=== PATIENT | male | born 1965 | race Caucasian/White ===

== ENCOUNTER → 2018-02-09 07:53 | Outpatient (CLI) | payer OTHER, SELFPAY ==
[2018-02-09 09:47] LABS: Alanine Aminotransferase 45 U/L (12-78); Albumin Level 3.8 gm/dL (3.4-5.0); Albumin/Globulin Ratio 1.1 (1.1-1.8); Alkaline Phosphatase 74 U/L (46-116); Anion Gap 14.7 mEq/L (5-15); Aspartate Amino Transferase 23 U/L (15-37); Bilirubin,Total 0.6 mg/dL (0.2-1.0); Blood Urea Nitrogen 11 mg/dL (7-18); Carbon Dioxide 26 mmol/L (21.0-32.0); Chloride 103 mmol/L (98-107); Creatinine,Serum 0.99 mg/dL (0.70-1.30); Estimated Glomerular Filt Rate 79 ml/min (>60); GFR (African American) 96 ML/MIN (>60); Globulin 3.5 gm/dl (1.3-3.2); Glucose 136 mg/dL (74-106); Potassium 4.7 mmoL/L (3.5-5.1); Sodium 139 mmol/L (136-145); Thyroid Stimulating Hormone 1.55 uIU/ml (0.358-3.740); Total Protein,Serum 7.3 gm/dL (6.4-8.2)
[2018-02-10 09:41] LABS: Chol/HDL Ratio 2.9 (1-3.5); Cholesterol 130 mg/dL (140-200); HDL Cholesterol 45 mg/dL (27-67); LDL Cholesterol 49 mg/dL (0-130); Triglycerides 182 mg/dL (30-200); VLDL Cholesterol 36 mg/dL (0-40)
== END ==
PROVIDERS: PCP Family Medicine; Visit Provider Physician Assistant
DX: I25.10 Atherosclerotic heart disease of native coronary artery without angina pectoris (principal); E78.5 Hyperlipidemia, unspecified
CPT/HCPCS: 36415; 80053; 80061; 80076; 84443

== ENCOUNTER → 2018-04-02 07:42 | Outpatient (CLI) | payer OTHER, SELFPAY ==
[2018-04-02 08:18] LABS: Basophils % 0.5 % (0.1-2.0); Eosinophils # 0.3 K/mm3 (0.0-0.4); Eosinophils % 3.7 % (0.1-12.0); Hemoglobin 16.3 g/dL (14.1-18.0); Lymphocytes # 2.3 K/mm3 (0.7-4.5); Lymphocytes % 28.5 % (10-50); Mean Corpuscular HGB Conc 33.3 g/dL (31.8-35.4); Mean Corpuscular Hemoglobin 32.9 pg (27.0-31.2); Mean Corpuscular Volume 98.8 fl (80-94); Mean Platelet Volume 8.4 fl (7.4-10.4); Monocytes # 0.4 K/mm3 (0.1-1.0); Monocytes % 4.5 % (1.7-9.3); Neutrophils % 62.8 % (37.0-80.0); Platelet Count 186 K/mm3 (142-424); Red Blood Count 4.96 M/mm3 (4.60-6.20); Red Cell Distribution Width 12.9 % (11.5-17.5)
--- NOTE | 2018-04-02 08:24 | XR_ITS ---
XR knee RT 4V, XR knee LT 4V Ordering Physician: Susan Crum Patient Age: 53 years: Male HISTORY: ITS.REASON: pain Bilateral knee pain. Left knee has been fractured previously. TECHNIQUE: . PA, standing AP, lateral and sunrise patella view. COMPARISON : No studies prior to today ------ RIGHT KNEE There is a joint effusion suprapatella bursa evident on the lateral view. Patellofemoral joint. Some mild subchondral cystic changes and sclerosis subtle but suggested beneath medial facet of patella, likely reflecting some degenerative changes developing here No acute or recent fracture evident. Bones well mineralized. Joint spaces fairly well maintained with only borderline narrowing at the medial compartment on the standing standing AP view. IMPRESSION-right knee. ] 1. Joint effusion evident at suprapatella bursa. 2. Suggestion early arthritic changes medial facet of patella Subtle sclerosis & mild subchondral cystic changes, medial facet of patella. ------ LEFT KNEE Technique: Weightbearing AP, lateral and Proctor views were performed as well as oblique. There is subtle narrowing of the lateral compartment on this date views of the left knee. Subtle marginal sharp screening and very early tricompartmental marginal osteophytes seen about the lateral joint space. No joint effusion. I do not see deformity from from old fracture. Suggestion of very subtle oblique line of sclerosis inferior to the the lateral tibial plateau which could reflect old residual. Equivocal.. Requires correlation. No joint effusion evident IMPRESSION. Suggestion early degenerative changes at the lateral compartment. Left knee Minimal joint space narrowing with trace marginal osteophyte formation laterally on left
[2018-04-02 09:13] LABS: Alanine Aminotransferase 50 U/L (12-78); Albumin Level 3.8 gm/dL (3.4-5.0); Albumin/Globulin Ratio 1.1 (1.1-1.8); Alkaline Phosphatase 74 U/L (46-116); Anion Gap 14.5 mEq/L (5-15); Aspartate Amino Transferase 26 U/L (15-37); Bilirubin,Total 0.4 mg/dL (0.2-1.0); Blood Urea Nitrogen 10 mg/dL (7-18); Calcium 8.9 mg/dL (8.5-10.1); Carbon Dioxide 27 mmol/L (21.0-32.0); Chloride 103 mmol/L (98-107); Cholesterol 138 mg/dL (140-200); Creatinine,Serum 1.08 mg/dL (0.70-1.30); Estimated Glomerular Filt Rate 72 ml/min (>60); GFR (African American) 87 ML/MIN (>60); Globulin 3.4 gm/dl (1.3-3.2); Glucose 131 mg/dL (74-106); HDL Cholesterol 46 mg/dL (27-67); LDL Cholesterol 61 mg/dL (0-130); Potassium 4.5 mmoL/L (3.5-5.1); Sodium 140 mmol/L (136-145); T4 (Thyroxine) 8.6 ug/dl (4.7-13.3); Thyroid Stimulating Hormone 2.39 uIU/ml (0.358-3.740); Total Protein,Serum 7.2 gm/dL (6.4-8.2); Triglycerides 156 mg/dL (30-200); VLDL Cholesterol 31 mg/dL (0-40)
[2018-04-02 09:19] LABS: C-Reactive Protein < 0.2 mg/L (0.0-0.9)
[2018-04-02 09:44] LABS: Erythrocyte Sedimentation Rate 5 mm/hr (0-20)
[2018-04-02 10:56] LABS: Hemoglobin A1C 5.9 % (0.0-7.0)
[2018-04-03 07:17] LABS: Hep A Ab, IgM Negative (Negative); Hepatitis B Core Antibody IgM Negative (Negative); Hepatitis B Surface Antigen Negative (Negative)
[2018-04-03 14:04] LABS: Hepatitis C Antibody 0.2 s/co ratio (0.0-0.9); PSA, Free 0.17 ng/mL; Prostate Specific Ag 0.4 ng/mL (0.0-4.0); RA Latex Turbid. <10.0 IU/mL (0.0-13.9)
[2018-04-03 14:17] LABS: Anti-Centromere B Antibodies <0.2 AI (0.0-0.9); Anti-Jo-1 <0.2 AI (0.0-0.9); Anti-Smith Antibody <0.2 AI (0.0-0.9); Antichromatin Antibodies <0.2 AI (0.0-0.9); Antiscleroderma-70 Antibodies <0.2 AI (0.0-0.9); RNP Antibodies <0.2 AI (0.0-0.9); Sjogren's Anti-SS-A <0.2 AI (0.0-0.9); Sjogren's Anti-SS-B <0.2 AI (0.0-0.9)
[2018-04-03 16:44] LABS: Anti-DNA (DS) Ab Qn 10 IU/mL (0-9)
[2018-04-04 00:07] LABS: PTT-LA 34.3 sec (0.0-51.9); dRVVT 39.8 sec (0.0-47.0)
[2018-04-04 09:31] LABS: Anti-Cyclic Citrullinated Pept 8 units (0-19); Lupus Reflex Interpretation Comment: (.)
== END ==
PROVIDERS: Visit Provider Nurse Practitioner Family
DX: M25.561 Pain in right knee (principal); M25.562 Pain in left knee; R53.83 Other fatigue; E78.2 Mixed hyperlipidemia; G89.29 Other chronic pain; Z12.5 Encounter for screening for malignant neoplasm of prostate
CPT/HCPCS: 36415; 73564; 80053; 80061; 80074; 83036; 84153; 84154; 84436; 84443; 85025; 85613; 85651; 86140; 86200; 86225; 86235; 86431

== ENCOUNTER → 2018-10-11 15:55 | Outpatient (CLI) | payer OTHER, SELFPAY ==
--- NOTE | 2018-10-11 16:03 | XR_ITS ---
EXAM: XR thoracic spine 3V HISTORY: Upper extremity numbness ITS.REASON: numbness in arms Comparison: None FINDINGS: Normal alignment. No fracture or dislocation. There is mild multilevel degenerative disc disease in the midthoracic spine. Minimal wedging noted involving T7 which appears old. Degenerative disc disease is present at T6-T7 and T7-T8 and T8-T9. There is mild upper thoracic curvature convex left. No lytic or blastic change. IMPRESSION: Thoracic spondylosis with degenerative disc disease and minimal loss of height of T7 which may be chronic and mild upper thoracic curvature convex left
--- NOTE | 2018-10-11 16:03 | XR_ITS ---
EXAM: XR cervical spine 3V HISTORY: ITS.REASON: numbness in rt/lt arm ORDERING PHYSICIAN: Susan Crum APRN PATIENT AGE: 53 years COMPARISON: None FINDINGS: There is minimal anterolisthesis of C4 on C5 of 1.5 mm. Mild degenerative disc disease C4-C5 C5-C6 and C6-. Mild facet arthritic changes with hypertrophy noted at C4-C5 and C6 on the left. Carotid artery calcifications are also present. No fracture or dislocation. No lytic or blastic change. There is upper thoracic curvature convex left. IMPRESSION: Cervical spondylosis with degenerative disc disease and facet arthritic change with upper thoracic scoliosis convex left. Carotid artery disease
== END ==
PROVIDERS: PCP Nurse Practitioner Family; Visit Provider Nurse Practitioner Family
DX: M79.602 Pain in left arm (principal)
CPT/HCPCS: 72040; 72072

== ENCOUNTER 2018-10-25 08:55 | Outpatient (RCR) | payer OTHER, SELFPAY ==
--- NOTE | 2018-10-25 10:12 | HMH.PTOPEV ---
PT Outpatient Evaluation Rehab PT Outpatient Evaluation Start: 10/25/18 09:05 Freq: Status: Active Protocol: Document 10/25/18 09:41 JAMES (Rec: 10/25/18 10:12 [email or web address] [id number]) Electronically Signed By Jonh Grant, PT 10/25/18 09:41 Outpatient Therapy Subjective History Subjective History Patient is a 53 year old male presenting to outpatient PT with reports of L sided cervical spine/shoulder pain with C6/7 dermatomal radicular symptoms. Pt reports symptoms started approximately 1 month ago of insidious onset. Most recent diagnostics include L sided cervical spine spondylosis/DDD . Comorbidities include CV stent x 2, HTN and carotid stenosis. Chief Complaint Pain,Paresthesia Symptom Type Ache,Sharp,Numbness,Tingling Symptoms Relieved By Nothing Symptoms Aggravated By Physical Activity Prior Functional Limitations None Current Functional Limitations Reaching,Lifting,Housework, Driving,Sleeping,Recreation Activity Symptom Description Constant but Variable Level of pain today (0-10) 6 Pain scale - at its best (0-10) 5 Pain scale - at its worst (0-10) 9 Cervical Eval Palpation Cervical Muscles L Cervical Paraspinal,L CT Junction,L Upper Trapezius,L Thoracic Paraspinals Posture Head/C-Spine Posture Sitting Position C-Spine Flattened Head/C-Spine Posture Standing Position C-Spine Flattened Flexibility Deficits Upper Trapezius Muscle Length (R) Moderate Tightness,(L) Moderate Tightness Levaetor Scapulae Muscle Length (R) Moderate Tightness,(L) Moderate Tightness Scalene Group Muscle Length (R) Moderate Tightness,(L) Moderate Tightness Sternocleidomastoid Muscle Length (R) Moderate Tightness,(L) Moderate Tightness Pectoralis Major Muscle Length (R) Moderate Tightness,(L) Moderate Tightness Pectoralis Minor Muscle Length (R) Moderate Tightness,(L) Moderate Tightness Passive Joint Mobility Cervical PIVM Dec: R OA L OA R AA L AA R C2/3
== END 2018-10-25 08:59 | disposition home or self-care (01) ==
LOC: PT 08:55
PROVIDERS: Visit Provider Emergency Medicine
DX: M43.02 Spondylolysis, cervical region (principal); M51.34 Other intervertebral disc degeneration, thoracic region; M50.30 Other cervical disc degeneration, unspecified cervical region; M48.50XA Collapsed vertebra, not elsewhere classified, site unspecified, initial encounter for fracture
CPT/HCPCS: 97163

== ENCOUNTER → 2018-11-06 06:06 | Outpatient (CLI) | payer OTHER, SELFPAY ==
--- NOTE | 2018-11-06 | CA_ITS ---
APPROVED REPORT Exam: Pharmacologic Technologist: Jennifer Green, Ht: 5 ft 9 in Wt: 198 lbs BSA: 2.06 m2 HR: 54 bpm BP: 150/66 mmHg Indications: Shortness of Breath Medical History Medications: Lisinopril,,,,, Omeprazole,,,,, Aspirin,,,,, Atorvastatin,,,,, Carvedilol,,,,, Stress Test Details Test: LEXISCAN HR Resting HR: 57 bpm Max Heart Rate (APMHR): 168 bpm Max HR Achieved: 85 bpm Target HR (85% APMHR): 142 bpm % of APMHR: 50 Recovery HR: 71 bpm BP Resting BP: 150/66 mmHg Max BP: 153/72 mmHg Recovery BP: 153.0/71.0 mmHg ECG Clinical Exercise duration: 04:00 min Highest Stage Achieved: Exercise capacity: 1.0 METs Stress ECG Conclusion Resting ECG: Sinus Bradycardia, ST-T abnormalities inferiorly and laterally consistent with strain pattern. Symptoms: Shortness of air, mild nausea, malaise. No Chest Pain Arrhythmia/Ectopy: None St-T Changes: No significant changes. Conclusion: Unremarkable Lexiscan Stress. Myoview images reported separately. Electronically signed by : Fazal Augustine, 11/07/2018 11:39:04
--- NOTE | 2018-11-06 06:10 | CA_ITS ---
APPROVED REPORT Sound Engineering Technician: CT Laterality: Bilateral Study Quality: Good Indications: carotid calcification Risk Factors Hypertension: Hyperlipidemia Smoking Doppler Spectral Velocity Analysis ECA (R) 143.00/ cm/s ECA (L) 115.00/ cm/s dICA (R) 110.00/34.90 cm/s dICA (L) 102.00/27.90 cm/s Ravi (R) 104.00/34.20 cm/s Ravi (L) 117.00/39.10 cm/s pICA (R) 107.00/36.30 cm/s pICA (L) 90.40/22.60 cm/s dCCA (R) 82.50/22.00 cm/s dCCA (L) 69.20/18.20 cm/s pCCA (R) 105.00/17.30 cm/s pCCA (L) 140.00/21.00 cm/s Vert (R) 47.40/ cm/s Vert (L) 41.30/ cm/s ICA/CCA 1.33 ICA/CCA 1.69 Findings Duplex evaluation demonstrates stenosis of the right proximal internal carotid artery <20%. Duplex evaluation demonstrates stenosis of the left proximal internal carotid artery <20%. Antegrade normal bilateral vertebral arteries. Conclusion Duplex evaluation demonstrates stenosis of the right proximal internal carotid artery <20%. Duplex evaluation demonstrates stenosis of the left proximal internal carotid artery <20%. Antegrade normal bilateral vertebral arteries. Electronically signed by : Ede Herrera MD 11/06/2018 19:18:04
--- NOTE | 2018-11-06 06:12 | NM_ITS ---
APPROVED REPORT Exam: Nuclear Stress Test Indication: SOB, Fatigue, Lt arm numbness, HTN, CAD, Hx of PR, High Cholesterol, Tobacco use, Family hx Patient Location: Outpatient Stress Tech: Jennifer Green MI Tech:Mehnaz Carr, ARRT, RT (R)(N) Ht: 5 ft 9 in Wt: 198 lbs BSA: 2.06 m2 HR: 54 bpm BP: 150/66 mmHg BMI: 29.2 History: SOB, Fatigue, Lt arm numbness, HTN, CAD, Hx of PR, High Cholesterol, Tobacco use, Family hx Procedure: Patient received a 0.4 mg of intravenous Lexiscan, resting heart rate 54 bpm, resting blood pressure 150/66 mmHg, with Lexiscan maximum heart rate achived was 82 bpm which is Less than 85 % of the maximum predicted heart rate and blood pressure was 144/76 mmHg. With Lexiscan, patient denied any complaint of chest pain. Electrocardiogram Sinus rhythm, with Lexiscan there is less than 1.[address] segment depression noted from the baseline EKG. The EKG portion of the Lexiscan Myoview is nondiagnostic. Cardiac Stress and Resting SPECT Images: Cardiac Stress and Resting SPECT images were obtained using technetium 99m Myoview 32 mCi stress and 10 mCi at rest. Gated SPECT with analysis of segmental wall motion and calculation of the ejection fraction also done. Cardiac stress and resting SPECT images show moderate sized area of fixed defect involving the inferior wall consistent with area of myocardial scarring, there is no reversible ischemia seen. Computer derived ejection fraction is 62% with moderate inferior wall hypokinesis. Right ventricle is mildly enlarged with normal contractility. Conclusion: 1. The EKG portion of the Lexiscan Myoview is nondiagnostic. 2. Scintigraphic evidence of myocardial scarring involving the inferior wall without significant kiara-infarct ischemia. Computer derived ejection fraction is 62% with segmental wall motion abnormality described above, right ventricle is mildly enlarged with normal contractility. 3. Abnormal Lexiscan Myoview study. Electronically signed by : Abraham Dobson, 11/16/2018 11:32:50
--- NOTE | 2018-11-06 07:05 | HMH.ITSHM ---
Current Home Medications as stated by this patient Tyler Sandra or service center representative. []LISINORPIL OMEPRAZOLE ATROVASTATIN CARVEDILOL ASA
== END ==
PROVIDERS: PCP Emergency Medicine; Visit Provider Internal Medicine
DX: R06.02 Shortness of breath (principal); I11.9 Hypertensive heart disease without heart failure; I25.10 Atherosclerotic heart disease of native coronary artery without angina pectoris; I77.9 Disorder of arteries and arterioles, unspecified; I65.29 Occlusion and stenosis of unspecified carotid artery; E78.5 Hyperlipidemia, unspecified
CPT/HCPCS: 78452; 93017; 93306; 93880; A9502; J2785

== ENCOUNTER → 2018-12-17 13:51 | Outpatient (CLI) | payer OTHER, SELFPAY ==
[2018-12-17 15:34] LABS: Anion Gap 16.1 mEq/L (5-15); Blood Urea Nitrogen 8 mg/dL (7-18); Calcium 8.6 mg/dL (8.5-10.1); Carbon Dioxide 24 mmol/L (21.0-32.0); Chloride 102 mmol/L (98-107); Creatinine,Serum 0.92 mg/dL (0.70-1.30); Estimated Glomerular Filt Rate 86 ml/min (>60); GFR (African American) 105 ML/MIN (>60); Glucose 123 mg/dL (74-106); Potassium 4.1 mmoL/L (3.5-5.1); Sodium 138 mmol/L (136-145)
== END ==
PROVIDERS: Urology; PCP Nurse Practitioner Family; Visit Provider Nurse Practitioner Family
DX: E78.2 Mixed hyperlipidemia (principal); I11.9 Hypertensive heart disease without heart failure; I25.10 Atherosclerotic heart disease of native coronary artery without angina pectoris; I65.29 Occlusion and stenosis of unspecified carotid artery; R06.02 Shortness of breath; F17.200 Nicotine dependence, unspecified, uncomplicated
CPT/HCPCS: 36415; 80048

== ENCOUNTER → 2018-12-24 08:29 | Outpatient (CLI) | payer OTHER, SELFPAY ==
--- NOTE | 2018-12-24 08:30 | MR_ITS ---
PROCEDURE: MR CERVICAL SPINE WO CON CLINICAL INDICATION: abn xray Left arm pain and numbness with stiff neck COMPARISON: from 10/11/2018 from 10/11/2018 TECHNIQUE: Standard multiplanar multiecho sequences are performed without contrast. 3-D MIP and myelographic images are also rendered and reviewed FINDINGS: There is generalized motion artifact especially on the axial images which decreases fine detail. Cranial cervical junction has an unremarkable appearance. C2-C3 and C3-C4 have an unremarkable appearance on the sagittal images. The axial images suggest minimal bulging disc however, this may be accentuated from the patient motion artifact. There is mild foraminal narrowing on the left at C2-C3 from some mild uncovertebral hypertrophy. C4-C5: There are facet arthritic changes on the left with mild left-sided foraminal narrowing. C5-C6: Mild left-sided facet hypertrophy with mild foraminal narrowing. Minimal bulging disc at C5-C6 C6-C7: Degenerate disc disease with minimal bulging disc. The bulging disc does abut the anterior aspect of the cord with minimal contour deformity. IMPRESSION: 1. Motion artifact does obscure fine detail and is present at multiple levels worse on the axial images compared to the sagittal images. 2. There is mild multilevel degenerative changes. Please see above for detailed description at each level. Dictated by: Ede Herrera MD 12/25/2018 05:40 Electronically signed by Ede Herrera MD in [place] 12/25/2018 05:40
== END ==
PROVIDERS: PCP Nurse Practitioner Family; Visit Provider Nurse Practitioner Family
DX: M54.2 Cervicalgia (principal)
CPT/HCPCS: 72141; 76376

== ENCOUNTER → 2019-07-26 07:48 | Outpatient (CLI) | payer OTHER, SELFPAY ==
--- NOTE | 2019-07-26 | XR_ITS ---
PROCEDURE: XR HIP RT 2-3V W/PELVIS CLINICAL INDICATION: PAIN Pain, abnormal MRI COMPARISON: MR HIP RT WO CON from 07/26/2019 FINDINGS: No definite fracture or dislocation. MRI shows extensive edema of the right femoral neck and intertrochanteric region with question of a fracture in the intertrochanteric region. This is not confirmed with plain film. Consider CT for further evaluation. There is avascular necrosis of the femoral heads on both sides on the MRI which is below limits of resolution on the plain film. IMPRESSION: Plain film does not demonstrate any acute fracture. Please see above for detail. Dictated by: Ede Herrera MD 07/26/2019 09:10 Electronically signed by Ede Herrera MD in [facility] 07/26/2019 09:10
--- NOTE | 2019-07-26 07:48 | MR_ITS ---
PROCEDURE: MR HIP RT WO CON CLINICAL INDICATION: hip pain Right hip pain COMPARISON: No exams were available for comparison TECHNIQUE: Routine multiplanar multi echo sequences are performed without gadolinium enhancement. FINDINGS: There is heterogeneous geographic serpiginous decreased T1 signal in the subcortical region of the femoral heads on both sides consistent with avascular necrosis of both femoral heads. On the right there is I so intense signal of the subchondral region of the femoral head which is hypointense on T2. On the left there is isointensity of the subchondral region which is hyperintense on T2 with a central area of decreased T2 signal. In addition, there is diffuse abnormal signal intensity of the right femoral neck extending from the subcapital region to the inter trochanteric area with heterogeneous decreased T1 and increased T2 signal. There is also decreased T1 and increased T2 signal of the acetabular region at the acetabular roof and there is a small right-sided hip effusion. In addition, there is some increased T2 signal involving the adjacent soft tissues. Along the anterior aspect of the intertrochanteric region there is some linear areas of decreased T1 and increased T2 signal raising the suspicion of a nondisplaced fracture.. IMPRESSION: 1. Bilateral avascular necrosis of the hips 2. Bone marrow edema of the right femoral neck extending to the inter trochanteric region and also of the right acetabulum with small right hip joint effusion. Septic arthritis could cause this finding. Transient osteoporosis of the hip is also consideration. 3. Questionable fracture of the intertrochanteric region. Suggest CT for further evaluation. Dictated by: Ede Herrera MD 07/26/2019 09:23 Electronically signed by Ede Herrera MD in [place] 07/26/2019 09:23
--- NOTE | 2019-07-26 09:25 | CT_ITS ---
PROCEDURE: CT PELVIS WO CON CLINICAL INDICATION: r/o fracture intertrochanteric region Acute right hip pain. Abnormal MRI with possible fracture COMPARISON: XR HIP RT 2-3V W/PELVIS from 07/26/2019 MR HIP RT WO CON from 07/26/2019 TECHNIQUE: Axial images obtained with sagittal and coronal reformats. All CT scans at the facility use one or more dose reduction, viz: automated exposure control, ma/kV adjustment per patient size (including targeted exams where dose is matched to indication, i.e. head), or iterative reconstruction technique. FINDINGS: No acute fracture or dislocation is evident. No obvious lytic changes are evident. There is mild sub chondral sclerosis of the femoral heads consistent with avascular necrosis much more apparent on the MRI. No bony destructive process evident. There are degenerative changes of the right SI joint with hypertrophic changes. Degenerative changes of the spine also noted The patient has a known right hip joint effusion as seen on the MRI less apparent on the CT scan. IMPRESSION: 1. No evidence of acute fracture. 2. Subtle subchondral sclerosis of the femoral heads consistent with avascular necrosis much more obvious on the MRI Dictated by: Ede Herrera MD 07/26/2019 10:03 Electronically signed by Ede Herrera MD in [place] 07/26/2019 10:03
== END ==
PROVIDERS: PCP Nurse Practitioner Family; Visit Provider Nurse Practitioner Family
DX: M25.551 Pain in right hip (principal)
CPT/HCPCS: 72192; 73502; 73721

== ENCOUNTER 2019-07-26 10:09 | Emergency (ER) | payer OTHER, SELFPAY ==
[2019-07-26 10:10] VITALS: BP 150/57; PULSE 58; RESP 20; TEMP 36.7; O2SAT 96; BMI 30.2
[2019-07-26 10:29] LABS: Basophils # 0.1 K/mm3 (0-0.2); Basophils % 0.7 % (0.1-2.0); Eosinophils # 0.3 K/mm3 (0.0-0.4); Hematocrit 48.9 % (42.0-52.0); Hemoglobin 16.3 g/dL (14.1-18.0); Lymphocytes # 2.6 K/mm3 (0.7-4.5); Lymphocytes % 27.5 % (10-50); Mean Corpuscular HGB Conc 33.3 g/dL (31.8-35.4); Mean Corpuscular Hemoglobin 31.9 pg (27.0-31.2); Mean Corpuscular Volume 95.8 fl (80-94); Mean Platelet Volume 8.6 fl (7.4-10.4); Monocytes # 0.5 K/mm3 (0.1-1.0); Monocytes % 5.8 % (1.7-9.3); Neutrophils # 5.9 K/mm3 (1.8-7.8); Neutrophils % 62.9 % (37.0-80.0); Platelet Count 174 K/mm3 (142-424); Red Blood Count 5.11 M/mm3 (4.60-6.20); Red Cell Distribution Width 13.6 % (11.5-17.5); White Blood Count 9.4 K/mm3 (4.8-10.8)
[2019-07-26 10:35] LABS: Alanine Aminotransferase 40 U/L (12-78); Albumin Level 4.6 g/dl (3.5-5.0); Albumin/Globulin Ratio 1.3 (1.1-1.8); Alkaline Phosphatase 94 U/L (38-126); Anion Gap 10.4 mEq/L (5-15); Aspartate Amino Transferase 32 U/L (17-59); Bilirubin,Total 0.8 mg/dl (0.2-1.3); Blood Urea Nitrogen 8 mg/dl (9-20); Calcium 9.8 mg/dl (8.4-10.2); Carbon Dioxide 29 mmol/L (22.0-30.0); Creatinine Clearance Estimated 140 mL/min (50-200); Estimated Glomerular Filt Rate 101 ml/min (>60); GFR (African American) 122 ML/MIN (>60); Globulin 3.5 g/dL (1.3-3.2); Glucose 127 mg/dl (74-100); Lactic Acid 1.2 mmol/L (0.7-2.1); Potassium 4.4 mmoL/L (3.5-5.1); Sodium 134 mmol/L (136-145); Total Protein,Serum 8.1 g/dl (6.3-8.2)
[2019-07-26 10:37] LABS: Chloride 99 mmol/L (98-107)
[2019-07-26 10:40] LABS: C-Reactive Protein 16.6 mg/L (0-4)
--- NOTE | 2019-07-26 10:41 | HMH.EDGENADL ---
ED Disposition Clinical Impression: Avascular necrosis of bone of right hip Disposition: Home, Self-Care Condition on Discharge: Good Prescriptions: Oxycodone HCl/Acetaminophen [Percocet 10-325 mg Tablet] 1 tab PO Q4H PRN 3 Days #15 tab PRN Reason: Breakthru Moderate Pain Prescription Printed - Critical Care Critical Care Time: No Attestation: On , the high probability of a clinically significant, sudden or life threatening deterioration of the following system(s) required my full and direct attention, intervention and personal management. The time I documented below is in addition to time spent performing reported procedures but includes the following listed in this critical care notation. Medical Decision Making - Medical Records Medical records reviewed: Yes: I reviewed the patient's medical records. - Lopez Inquiry Pt receiving controlled substance: No Vital Signs: 07/26/19 10:10 Temperature 98.1 F Temperature Source Oral Pulse Rate [Right] 58 L Respiratory Rate 20 Blood Pressure [Right Arm] 150/57 H Blood Pressure Mean [Right Arm] 88 02 Sat by Pulse Oximetry 96 - Lab Data Lab results reviewed: Yes: I reviewed the patient's lab results. Lab Results 07/26/19 10:15: WBC 9.4, RBC 5.11, Hgb 16.3, Hct 48.9, MCV 95.8 H, MCH 31.9 H, MCHC 33.3, RDW 13.6, Plt Count 174, MPV 8.6, Neut % (Auto) 62.9, Lymph % (Auto) 27.5, Jerome % (Auto) 5.8, Eos % (Auto) 3.0, Baso % (Auto) 0.7, Neut # (Auto) 5.9, Lymph # (Auto) 2.6, Jerome # (Auto) 0.5, Eos # (Auto) 0.3, Baso # (Auto) 0.1 07/26/19 10:15: Sodium 134 L, Potassium 4.4, Chloride 99, Carbon Dioxide 29, Anion Gap 10.4, BUN 8 L, Creatinine 0.80, Estimated Creat Clear 140, Estimated GFR 101, Est GFR ( Amer) 122, Glucose 127 H, Calcium 9.8, Total Bilirubin 0.8, AST 32, ALT 40, Alkaline Phosphatase 94, C-Reactive Protein 16.6 H, Total Protein 8.1, Albumin 4.6, Globulin 3.5 H, Albumin/Globulin Ratio 1.3 07/26/19 10:15: Lactate 1.2 07/26/19 10:15: ESR 8 Result diagrams: 07/26/19 10:15 07/26/19 10:15 Orders (Tests/Meds): ORDERS Category Date Time Status Blood Culture Stat Micro 07/26/19 10:15 Received Medical Decision Narrative: I spoke with Dr. Keith on the phone and I was in the room with the patient as I was doing some exam findings on the patient as far as passive movement of the hip which she was able to do it did cause him pain but he was able let me internally rotate his hip flexed to flex the hip and extend the hip as well. Dr. Keith thinks that this is avascular necrosis is not a septic hip and she would like for him to see Dr. Burden next Monday in his office. General Adult HPI - General Chief complaint: PAIN Stated complaint: hip pain Time Seen by Provider: 07/26/19 10:09 Mode of Arrival: Ambulatory Limitations: No Limitations Description of Symptoms (Recalled from ER Triage Doc. by RN): Pt c/o right hip pain that radiates to his knee for 4 weeks. Denies cough, fever, soa or tavel hx. - History of Present Illness HPI narrative: 54-year-old gentleman comes in from his primary care office for a septic work-up secondary to possible septic arthritis of the right hip. Patient had an MRI done and on the MRI it did show that the patient did have bilateral avascular necrosis more significant on the left than the right with septic arthritis cannot be ruled out at this time. Patient is able to ambulate and I am able to passively move his hip it does cause him pain but not severe pain. Otherwise patient has no other complaints. Patient's pain is presently 10 out of 10 and describes it as sharp tearing sensation in the right hip. He states the only alleviating factors is not movement but when he moves the hip it does cause significant pain. - Related Data Home Medications Medication Instructions Recorded Confirmed nitroglycerin 0.4 mg sublingual 0.4 mg SUBLINGUAL Q5-15M PRN 8 05/10/18 07/10/19 tablet Days #4400 tab Previous
--- NOTE | 2019-07-26 10:43 | PC.NURSE ---
Dr. Burden pagebeau.
[2019-07-26 10:52] LABS: Erythrocyte Sedimentation Rate 8 mm/hr (0-20)
[2019-07-26 11:30] VITALS: BP 145/45; PULSE 87; RESP 20; TEMP 36.8; O2SAT 98
== END 2019-07-26 11:31 | disposition home or self-care (01) ==
PROVIDERS: Emergency Provider Family Medicine
DX: M87.051 Idiopathic aseptic necrosis of right femur (principal); I25.10 Atherosclerotic heart disease of native coronary artery without angina pectoris; K21.9 Gastro-esophageal reflux disease without esophagitis; E78.5 Hyperlipidemia, unspecified; I10 Essential (primary) hypertension; I25.2 Old myocardial infarction; F17.210 Nicotine dependence, cigarettes, uncomplicated; Z79.899 Other long term (current) drug therapy
CPT/HCPCS: 80053; 83605; 85025; 85651; 86140; 87040; 99283

== ENCOUNTER → 2019-10-22 09:52 | Outpatient (CLI) | payer OTHER, SELFPAY ==
[2019-10-22 10:07] LABS: Basophils % 0.4 % (0.1-2.0); Eosinophils # 0.3 K/mm3 (0.0-0.4); Eosinophils % 3.1 % (0.1-12.0); Hematocrit 49.2 % (42.0-52.0); Hemoglobin 16.6 g/dL (14.1-18.0); Lymphocytes # 2.7 K/mm3 (0.7-4.5); Lymphocytes % 31.6 % (10-50); Mean Corpuscular HGB Conc 33.7 g/dL (31.8-35.4); Mean Corpuscular Hemoglobin 32.1 pg (27.0-31.2); Mean Corpuscular Volume 95.3 fl (80-94); Mean Platelet Volume 8.5 fl (7.4-10.4); Monocytes # 0.3 K/mm3 (0.1-1.0); Monocytes % 3.7 % (1.7-9.3); Neutrophils # 5.2 K/mm3 (1.8-7.8); Neutrophils % 61.1 % (37.0-80.0); Platelet Count 203 K/mm3 (142-424); Red Blood Count 5.17 M/mm3 (4.60-6.20); Red Cell Distribution Width 12.8 % (11.5-17.5); White Blood Count 8.5 K/mm3 (4.8-10.8)
[2019-10-22 10:38] LABS: Chloride 103 mmol/L (98-107); Potassium 4.5 mmoL/L (3.5-5.1); Sodium 139 mmol/L (136-145)
[2019-10-22 10:40] LABS: Alanine Aminotransferase 31 U/L (12-78); Alkaline Phosphatase 85 U/L (38-126); Aspartate Amino Transferase 27 U/L (17-59); Bilirubin,Total 0.5 mg/dl (0.2-1.3); Blood Urea Nitrogen 11 mg/dl (9-20); Estimated Glomerular Filt Rate 101 ml/min (>60); GFR (African American) 122 ML/MIN (>60)
[2019-10-22 10:41] LABS: Albumin Level 4.2 g/dl (3.5-5.0); Albumin/Globulin Ratio 1.4 (1.1-1.8); Anion Gap 12.5 mEq/L (5-15); Calcium 9.6 mg/dl (8.4-10.2); Carbon Dioxide 28 mmol/L (22.0-30.0); Chol/HDL Ratio 3.9 (1-3.5); Cholesterol 108 mg/dl (140-200); Glucose 123 mg/dl (74-100); HDL Cholesterol 28 mg/dl (40-60); Total Protein,Serum 7.2 g/dl (6.3-8.2); Triglycerides 137 mg/dl (30-150); VLDL Cholesterol 27 mg/dL (0-40)
[2019-10-22 10:53] LABS: Direct LDL Cholesterol 55.06 mg/dL (100-129)
[2019-10-22 10:59] LABS: T4 (Thyroxine) 9.9 ug/dl (5.53-11.0)
[2019-10-22 11:12] LABS: Thyroid Stimulating Hormone 1.21 uIU/mL (0.465-4.68)
== END ==
PROVIDERS: Visit Provider Nurse Practitioner Family
DX: R06.02 Shortness of breath (principal); E78.5 Hyperlipidemia, unspecified; R53.83 Other fatigue; E55.9 Vitamin D deficiency, unspecified
CPT/HCPCS: 36415; 80053; 80061; 82306; 84436; 84443; 85025

== ENCOUNTER → 2019-11-25 09:42 | Outpatient (CLI) | payer OTHER, SELFPAY ==
--- NOTE | 2019-11-25 09:49 | XR_ITS ---
PROCEDURE: XR HIP RT 2-3V W/PELVIS CLINICAL INDICATION: right hip pain; pelvis xrays weightbearing COMPARISON: CT CT PELVIS WO CON from 07/26/2019 DX XR HIP RT 2-3V W/PELVIS from 07/26/2019 FINDINGS: AP view of the pelvis and two views of the right hip were obtained. Voyant jonas used with a rounded metallic density overlying the perineal region. There is mild cortical depression of the right femoral head consistent with avascular necrosis. In addition, there is a prominent area decreased density of the right femoral head measuring approximately 4 cm with poorly defined margins. This may represent subchondral cystic changes with secondary degenerative change. AVN also noted of the left hip as described in the left hip report. No other significant anomalies evident. IMPRESSION: Avascular necrosis of the bilateral hips with a prominent zone of lucency of the right femoral head with poorly defined margins possibly related to prominent subchondral cystic changes which has developed since the previous CT scan of 07/26/2019. Dictated by: Ede Herrera MD 11/25/2019 13:22 Ede Herrera MD in [place] 11/25/2019 13:22
--- NOTE | 2019-11-25 09:49 | XR_ITS ---
PROCEDURE: XR HIP LT 2-3V W/PELVIS CLINICAL INDICATION: left hip pain; pelvis xray weightbearing COMPARISON: MR MR HIP RT WO CON from 07/26/2019 DX XR HIP RT 2-3V W/PELVIS from 07/26/2019 FINDINGS: There is minimal cortical depression of the left femoral head which has developed since the previous exam. Previous MRI demonstrated avascular necrosis of the left hip. There is a faint crescent sign involving the femoral head. IMPRESSION: Avascular necrosis of the left femoral head with minimal cortical depression with crescent sign noted Dictated by: Ede Herrera MD 11/25/2019 13:18 Ede Herrera MD in [place] 11/25/2019 13:18
[2019-11-25 11:39] LABS: MANUAL DIFFERENTIAL MANUAL DIFFERENTIAL (MANUAL DIFF)
[2019-11-25 12:24] LABS: Basophils # 0.1 K/mm3 (0-0.2); Basophils % 0.5 % (0.1-2.0); Eosinophils # 0.5 K/mm3 (0.0-0.4); Eosinophils % 4.7 % (0.1-12.0); Hemoglobin 16.2 g/dL (14.1-18.0); Lymphocytes # 2.8 K/mm3 (0.7-4.5); Mean Corpuscular HGB Conc 34.5 g/dL (31.8-35.4); Mean Corpuscular Hemoglobin 32.3 pg (27.0-31.2); Mean Corpuscular Volume 93.6 fl (80-94); Mean Platelet Volume 9.3 fl (7.4-10.4); Monocytes # 0.5 K/mm3 (0.1-1.0); Monocytes % 5.1 % (1.7-9.3); Neutrophils # 5.8 K/mm3 (1.8-7.8); Neutrophils % 60.6 % (37.0-80.0); Platelet Count 195 K/mm3 (142-424); Red Blood Count 5.02 M/mm3 (4.60-6.20); Red Cell Distribution Width 12.8 % (11.5-17.5); White Blood Count 9.6 K/mm3 (4.8-10.8)
[2019-11-25 12:59] LABS: Chloride 100 mmol/L (98-107); Potassium 4.7 mmoL/L (3.5-5.1); Sodium 137 mmol/L (136-145)
[2019-11-25 13:02] LABS: Alanine Aminotransferase 39 U/L (12-78); Albumin Level 4.1 g/dl (3.5-5.0); Albumin/Globulin Ratio 1.4 (1.1-1.8); Alkaline Phosphatase 80 U/L (38-126); Anion Gap 13.7 mEq/L (5-15); Aspartate Amino Transferase 31 U/L (17-59); Bilirubin,Total 0.5 mg/dl (0.2-1.3); Blood Urea Nitrogen 10 mg/dl (9-20); Calcium 9.7 mg/dl (8.4-10.2); Carbon Dioxide 28 mmol/L (22.0-30.0); Estimated Glomerular Filt Rate 118 ml/min (>60); GFR (African American) 143 ML/MIN (>60); Glucose 124 mg/dl (74-100); Total Protein,Serum 7.1 g/dl (6.3-8.2)
[2019-11-25 13:54] LABS: Eosinophils % 6 % (0-3); Lymphocytes % 26 % (10-50); Monocytes % 5 % (2-9); Neutrophils % 63 % (42-76); Platelet Estimate Normal; RBC Morphology Normal; Total Cells Counted 100
[2019-11-25 16:59] LABS: INR 0.99 (0.9-1.1); Prothrombin Time 9.9 seconds (9.4-11.8)
== END ==
PROVIDERS: PCP Nurse Practitioner Family; Visit Provider Orthopaedic Surgery
DX: M25.551 Pain in right hip (principal); M25.552 Pain in left hip
CPT/HCPCS: 36415; 73502; 80053; 85007; 85014; 85018; 85048; 85049; 85610; 85730; 87081

== ENCOUNTER → 2019-11-25 11:37 | Outpatient (CLI) | payer OTHER, SELFPAY | PROVIDERS: Visit Provider Orthopaedic Surgery | DX: M25.552 Pain in left hip (principal); M25.551 Pain in right hip | CPT/HCPCS: 36415; 80053; 85007; 85014; 85018; 85048; 85049; 85610; 85730; 87081 ==

== ENCOUNTER → 2019-12-02 10:26 | Outpatient (CLI) | payer OTHER, SELFPAY ==
[2019-12-02 12:22] LABS: Coronavirus 19 IgG Antibody Negative (Negative); Coronavirus 19 IgM Antibody Negative (Negative)
== END ==
PROVIDERS: Visit Provider Orthopaedic Surgery
DX: Z01.818 Encounter for other preprocedural examination (principal)
CPT/HCPCS: 36415; 86328; 86850

== ENCOUNTER 2019-12-03 16:42 | Observation (INO) | payer OTHER, SELFPAY ==
[2019-11-29 15:10] VITALS: BMI 30.5
[2019-12-03] VITALS (22 sets, daily range): BP systolic 110–190; BP diastolic 56–100; PULSE 68–81; RESP 16–19; TEMP 36.4–38; O2SAT 95–100; BMI 27.7
--- NOTE | 2019-12-03 17:59 | SUR.OPER ---
1758-spoke with lab at this time and reported no organisms seen on gram stain, notified Dr. Michelle
--- NOTE | 2019-12-03 18:24 | P.PN_ITS ---
[facility] Anesthesia Checklist - Patient Identification Patient Identification: Arm Band, Verbal (Name & ) - Structural Data Admitted From: Home Planned Operative Procedure/s: Left MARILYN Consent for Planned Operative Procedure(s) Verified: Yes Verified Documents: Surgical Consent, History and Physical - NPO Status Verified Time NPO: 00:00 - Chart Verification Results Verified: None - Additional verifications Anesthesia Reactions: No Hx Blood Transfusions: No Blood Transfusion Reaction: No - Airway Assessment C-Spine Mobility Assessed: Yes (MP 2, TMD 3) TMJ Mobility Assessed: Yes Dentition: Poor Dentition (Missing teeth) - Neurological Assessment Level of Consciousness: Awake, Alert, Appropriate, Follows Commands Hx Seizures: No Numbness or tingling in extremities: No - Anesthesia Plan Anesthesia Risk discussed: Yes Anesthesia Plan: Verified ASA Class: III Anesthesia Type: Spinal [facility] History I have reviewed the patient's past medical history: Yes Medical History: Reports:: Coronary Artery Disease, Gastroesophageal Reflux Disease(GERD), Heart Murmur, Hyperlipidemia, Hypertension, Myocardial Infarction Denies:: Cancer, Diabetes Mellitus Type 1, Diabetes Mellitus Type 2, Internal Pacemaker, MRSA, Seizures *Have you ever received a pneumonia vaccine?: No *Have you received a flu vaccine this season?: No Other Medical History: Reports: Arthritis. Denies: Blood Transfusion Reaction Comment:: obesity Anesthesia experience/problems:: No prior complications Other Surgeries: Yes: Cardiac Catheterization, Cardiac Surgery, Coronary Stent (x2), Other. No: Pacemaker Amputation: No Fractures: No - *Social History Smoking Status: Current every day smoker Tobacco Type: cigarettes # Packs/Day (cigarettes): 2 #Yrs smoked (if former smoker): 40 Alcohol Intake: current Alcohol Intake Frequency:: a few times a week Substance Use Type: denies use *Occupational Status:: employed Housing: house Household Members: spouse *Travel in the last 8 weeks: None Family Hx:: No significant family history
--- NOTE | 2019-12-03 19:17 | SUR.OPER ---
191-family updated at this time
--- NOTE | 2019-12-03 20:11 | XR_ITS ---
PROCEDURE: XR HIP LT 2-3V W/PELVIS CLINICAL INDICATION: s/p left total hip arthroplasty Follow-up total hip arthroplasty COMPARISON: CT CT PELVIS WO CON from 07/26/2019 CR XR HIP RT 2-3V W/PELVIS from 11/25/2019 FINDINGS: Status post total hip replacement on the left. There is good alignment of the prosthesis. Postsurgical gas noted. No acute fracture or dislocation. There is some flattening of the right femoral head with subchondral sclerosis consistent with AVN on the right IMPRESSION: Good alignment status post left hip replacement with right-sided AVN Dictated by: Ede Herrera MD 12/04/2019 05:29 Ede Herrera MD in [place] 12/04/2019 05:29
--- NOTE | 2019-12-03 20:27 | HMH.ANESI ---
[facility] Anesthesia Record Part I Intake, IV Amount: 1,800 Estimated blood loss (mL): 300 Urine output (mL): 150 Blood Products used (#): none Blood Pressure: 136/73 SaO2: 98 Pulse Rate: 75 Respiratory Rate: 16 Temperature: 97.6 F Patient is:: Drowsy, Nasal O2, Stable Stable to PACU at:: 20:20
--- NOTE | 2019-12-03 20:45 | HMH.ORTHHP ---
*Admission Date: 12/03/19 *Reason for consult:: s/p L MARILYN *History of present illness: 54-year-old gentleman returns for follow-up of bilateral hip pain. He has previously seen Dr. Burden in July 2019 for the same complaint, and avascular necrosis of bilateral femoral heads was diagnosed. His pain began in the spring 2019 with no known injury. At that time his right hip was more painful than the left. Recently however the left hip is more painful than the right. He requires the use of crutches and/or a cane for ambulation. He does have a history of chronic smoking and alcohol use, though he says the alcohol is limited to a few times per week. He does smoke 1 pack of cigarettes daily. No reported steroid use or chemotherapy/radiation. No known personal or family history of sickle cell disease. He is interested in hip replacement and has obtained medical and cardiology clearances for the surgery. Dr. Burden has been out on leave for the last 6 weeks and the patient does not wish to wait until he returns to proceed with surgery. He reports a history of cervical and lumbar degenerative disc disease with pain and occasional radiculopathy but no weakness. He denies any current numbness or tingling in bilateral lower extremities. He has never had surgery on either hip. He is on no anticoagulants but does take a baby aspirin daily. He localizes the pain to anterior and posterior aspect of the hip with radiation into the upper thigh. Walking, sitting and laying flat exacerbate his pain. He rates his pain a 10 out of 10. No history of any fevers, chills or rigors. MRI scan in July was also concerning for possible nondisplaced intertrochanteric fracture of the right femur, which was excluded based on CT done at that time. Septic arthritis remained in the differential as well, which was not thought to be likely given no elevation of his white blood cell count, ESR or CRP. I discussed treatment options with the patient at length, and at this time I recommend total hip arthroplasty. I believe it is too late for core decompression, definitely on the right, but I do not think it would be effective on the left at this time either. The right has started to show signs of some collapse, and I believe the left is close behind it. I told the patient we could proceed with whichever hip is more painful at this time, which currently is the left hip. I discussed the risks and benefits of the surgery at length, in addition to the expected perioperative course, hospital stay and need for postoperative physical therapy. We also discussed the risks of surgery, which include but are not limited to: bleeding, infection, intraoperative fracture, neurovascular damage including postoperative foot drop, periprosthetic fracture postoperatively, postoperative hip dislocation, need for possible revision surgery in the future, wound healing complications due to his status is a smoker, and the possibility of continued pain and/or disability despite surgery. The patient vocalized understanding and informed consent was obtained. I have asked the patient to stop his aspirin 1 week prior to surgery. We will obtain preoperative labs and MRSA nasal swab. If the nasal swab is positive we will start Bactroban 5 days prior to surgery. The patient underwent L MARILYN this afternoon without complication. EBL was 200cc, with 1800cc IVF (LR), and 100cc UOP. Received 2g Ancef IV and 2 doses of TXA. [facility] History I have reviewed the patient's past medical history: Yes Medical History: Reports:: Coronary Artery Disease, Gastroesophageal Reflux Disease(GERD), Heart Murmur, Hyperlipidemia, Hypertension, Myocardial Infarction Denies:: Cancer, Diabetes Mellitus Type 1, Diabetes Mellitus Type 2, Internal Pacemaker, MRSA, Seizures *Have you ever received a pneumonia vaccine?: No *Have you received a flu vaccine this season?: No Other Medical History: Reports: Arthritis. Denies: Blood Transfusion Reaction Anesthesi
--- NOTE | 2019-12-03 20:55 | HMH.OPNOTE ---
Date of procedure: 12/03/19 Pre-op Diagnosis:: avascular necrosis L hip Post-op Diagnosis:: avascular necrosis L hip Procedure performed:: L total hip arthroplasty (MARILYN) Surgeon:: Dorys Thomas MD Analysis Director(s):: Heber Ortega MD AUTOMOTIVE SERVICE MANAGEMENT TEACHER:: Ari Horton Anesthesia: MAC, spinal Estimated blood loss (mL): 200 Clinical Note:: 54-year-old gentleman with B/L hip pain. He has previously seen Dr. Burden in July 2019 for the same complaint, and avascular necrosis of bilateral femoral heads was diagnosed. His pain began in the spring 2019 with no known injury. At that time his right hip was more painful than the left. Recently however the left hip is more painful than the right. He requires the use of crutches and/or a cane for ambulation. He does have a history of chronic smoking and alcohol use, though he says the alcohol is limited to a few times per week. He does smoke 1 pack of cigarettes daily. No reported steroid use or chemotherapy/radiation. No known personal or family history of sickle cell disease. He is interested in hip replacement and has obtained medical and cardiology clearances for the surgery. Dr. Burden has been out on leave for the last 6 weeks and the patient does not wish to wait until he returns to proceed with surgery. He reports a history of cervical and lumbar degenerative disc disease with pain and occasional radiculopathy but no weakness. He denies any current numbness or tingling in bilateral lower extremities. He has never had surgery on either hip. He is on no anticoagulants but does take a baby aspirin daily. He localizes the pain to anterior and posterior aspect of the hip with radiation into the upper thigh. Walking, sitting and laying flat exacerbate his pain. He rates his pain a 10 out of 10. No history of any fevers, chills or rigors. MRI scan in July was also concerning for possible nondisplaced intertrochanteric fracture of the right femur, which was excluded based on CT done at that time. Septic arthritis remained in the differential as well, which was not thought to be likely given no elevation of his white blood cell count, ESR or CRP. I discussed treatment options with the patient at length, and at this time I recommend total hip arthroplasty. I believe it is too late for core decompression, definitely on the right, but I do not think it would be effective on the left at this time either. The right has started to show signs of some collapse, and I believe the left is close behind it. I told the patient we could proceed with whichever hip is more painful at this time, which currently is the left hip. I discussed the risks and benefits of the surgery at length, in addition to the expected perioperative course, hospital stay and need for postoperative physical therapy. We also discussed the risks of surgery, which include but are not limited to: bleeding, infection, intraoperative fracture, neurovascular damage including postoperative foot drop, periprosthetic fracture postoperatively, postoperative hip dislocation, need for possible revision surgery in the future, wound healing complications due to his status is a smoker, and the possibility of continued pain and/or disability despite surgery. The patient vocalized understanding and informed consent was obtained. The patient stopped his aspirin 1 week prior to surgery. MRSA nasal swab was negative; bactroban was not needed. Operative findings:: vendor: [employer]: R3 shell, 3-hole; 58mm OD screws: 15mm x1, 25mm x1 liner: 58x36 w/20deg posterior lip Femur: Synergy stem, size 14 high offset head: oxinium 36mm +4 Operative note:: The patient was identified in preoperative holding and the L hip signed by myself. Consent was verified with the patient and all questions answered. He was then taken to the operating room where spinal anesthesia was administered on his hospital bed. Once spinal was performed, he was transferred to the operat
--- NOTE | 2019-12-03 21:02 | PC.NURSE ---
2058-radiology at bedside
--- NOTE | 2019-12-03 21:06 | PC.NURSE ---
2106-pt drinking ice water w/out difficulty
--- NOTE | 2019-12-03 21:36 | PC.NURSE ---
PT ARRIVED TO THE FLOOR VIA BED W/ OR STAFF AT 2123
--- NOTE | 2019-12-03 21:42 | PC.NURSE ---
2117-detailed report called to FRANKLIN Eason 2119-pt transported to 2nd floor room 213 via hospital bed w/yann rails up and left in care of FRANKLIN Eason with bed locked in lowest position, vss, family at bedside, pt stable
[2019-12-03 22:02] LABS: Microscopic,Cath URINE MICROSCOPIC (MICROSCOPIC)
[2019-12-03 22:04] LABS: Appearance,Urine/Cath CLEAR (Clear); Bilirubin,Cath Negative (Negative); Blood, Urine/Cath Negative (Negative); Color,Urine/Cath YELLOW (Yellow); Glucose,Urine/Cath (UA) Negative (Negative); Ketones,Urine/Cath Negative (Negative); Leukocyte Esterase,Cath Negative (Negative); Nitrate,Cath Negative (Negative); PH,Urine/Cath 7.5 (5.0-8.5); Protein,Urine/Cath Negative (Negative); Specific Gravity, Urine/Cath 1.025 (1.005-1.030)
[2019-12-03 22:13] LABS: Bacteria,Urine/Cath TRACE /lpf; Squamous Epithelial Ur./Cath Occasional #/hpf (0-5)
[2019-12-04] VITALS (10 sets, daily range): BP systolic 105–144; BP diastolic 46–74; PULSE 72–87; RESP 17–20; TEMP 36.4–37.1; O2SAT 95–99; BMI 27.6
--- NOTE | 2019-12-04 05:40 | PC.NURSE ---
Pt has rested well this shift. Has rated pain a 3 to hip this shift. States his back is starting to get sore this am. Pt has declined any pain medication. Pt has been educated on relieving pain before it gets out of control. Pt states he understands, but wants to wake up some more. Pt has done well with incentive spirometer. Some coughing noted this shift. Pt remains on RA. Lungs CTA. Incision to (l) hip with DSG C/D/I. No drainage noted. Abductor pillow in place with Ice pack to Hip. Pedal pulses palpable. VSS. Pt has tolerated liquids, soup and jello. Medications administered per may. Family at bedside. Will continue to monitor.
[2019-12-04 06:20] LABS: Basophils % 0.3 % (0.1-2.0); Eosinophils # 0.4 K/mm3 (0.0-0.4); Eosinophils % 3.1 % (0.1-12.0); Hematocrit 38.4 % (42.0-52.0); Hemoglobin 12.9 g/dL (14.1-18.0); Lymphocytes % 16.8 % (10-50); Mean Corpuscular HGB Conc 33.5 g/dL (31.8-35.4); Mean Corpuscular Hemoglobin 32.8 pg (27.0-31.2); Mean Corpuscular Volume 97.7 fl (80-94); Mean Platelet Volume 9.2 fl (7.4-10.4); Monocytes # 0.6 K/mm3 (0.1-1.0); Monocytes % 4.6 % (1.7-9.3); Neutrophils % 75.2 % (37.0-80.0); Platelet Count 170 K/mm3 (142-424); Red Blood Count 3.93 M/mm3 (4.60-6.20); Red Cell Distribution Width 13.1 % (11.5-17.5)
[2019-12-04 06:22] LABS: Chloride 100 mmol/L (98-107); Sodium 134 mmol/L (136-145)
[2019-12-04 06:23] LABS: Potassium 4.2 mmoL/L (3.5-5.1)
[2019-12-04 06:25] LABS: Anion Gap 11.2 mEq/L (5-15); Blood Urea Nitrogen 11 mg/dl (9-20); Carbon Dioxide 27 mmol/L (22.0-30.0); Creatinine Clearance Estimated 105 mL/min (50-200); Estimated Glomerular Filt Rate 88 ml/min (>60); GFR (African American) 107 ML/MIN (>60)
[2019-12-04 06:26] LABS: Calcium 8.7 mg/dl (8.4-10.2); Glucose 186 mg/dl (74-100)
--- NOTE | 2019-12-04 07:35 | P.CONPHA_ITS ---
[facility] Pharmacy VTE Monitoring - Patient Demographics Admission date: 12/04/19 Report Date: 12/04/19 Time: 07:35 Allergies/Adverse Reactions: Patient Allergies acetaminophen [From Percocet] Adverse Reaction (Verified 11/29/19 15:16) oxycodone [From Percocet] Adverse Reaction (Verified 11/29/19 15:16) Height: 1.68 m Weight: 78.046 kg Patient Problems: Current Active Problems (Last Updated 11/13/18 @ 09:11 by Tisha Sheets RN) Hypertension (Acute) Avascular necrosis of bone of left hip (Acute) - VTE Risk Labs: VTE Related Lab Results Hgb 12.9 g/dL (14.1-18.0) L 12/04/19 05:37 Hct 38.4 % (42.0-52.0) L 12/04/19 05:37 Plt Count 170 K/mm3 (142-424) 12/04/19 05:37 BUN 11 mg/dl (9-20) 12/04/19 05:37 Creatinine 0.90 mg/dl (0.66-1.25) 12/04/19 05:37 Estimated Creat Clear 105 mL/min (50-200) 12/04/19 05:37 Was VTE Risk Assessment Performed: Yes VTE Score: 9 VTE Risk Level: Moderate Risk Clinical Trial Participant: No - Prophylaxis VTE Prophylaxis Ordered?: Yes Types of VTE Prophylaxis: IPCS Knee High (POSTOP), Pharmacological Location of Applied Device: Right Leg Pharmacologic Type: Enoxaparin
--- NOTE | 2019-12-04 08:05 | HMH.ANESII ---
[facility] Anesthesia Record Part II Discharge Time: 20:50 Destination: Medical Surgical Department PACU nurse assessment reviewed?: Yes Patient Condition:: Good Anesthesia Complications:: None Swallowing reflex intact?: Yes Cyanosis?: No Blood Pressure: 133/74 Pulse Rate: 73 Temperature: 97.5 F Mental Status: Alert & Oriented Pain level:: 3 Nausea and/or vomitting:: None Intake, IV Amount: 0 (Normovolemic)
--- NOTE | 2019-12-04 10:44 | PC.NURSE ---
rounded with Dr. Thomas. Discontinued tovar catheter. Pt sitting in chair. No issues noted @ this time
--- NOTE | 2019-12-04 10:52 | HMH.PTEV ---
Physical Therapy Evaluation Rehab PT IP Evaluation Start: 12/03/19 20:37 Freq: ONCE Status: Active Protocol: Document 12/04/19 10:33 BRANDI (Rec: 12/04/19 10:52 BRANDI [id number]) Subjective/History History History This is the initial evaluation from Tyler Sandra, a 54 yo male being evaluated s/p MARILYN on 12/03/19. Pt required MARILYN 2nd to AVN of B femoral heads Subjective Subjective Pt. reports that he is having some pain but is willing to work with PT this morning. Note done by RUTH ANN Britton Rehab PT IP Eval Objective Appearance Patient Behavior Appropriate,Cooperative Patient Orientation Person,Place,Name,Birthday, Year Difficulty following instructions none Speech Pattern Clear,Appropriate,Coherent Ambulation Patient Able to Ambulate Yes Ambulation Observation IP General Gait Pattern Observation Antalgic Gait Ambulation Distance (feet) 3 Ambulation Assistive Device Standard Walker Ambulation Ability Minimal x 1 (25% assist), Minimal x 2 (25% assist) Balance Ability to Arise Able, uses arms to help Sitting Balance Steady, safe Standing Balance Steady, wide stance Dynamic Sitting Balance Ability Good Dynamic Standing Balance Ability Good Transfers Bed Transfer Ability Moderate x 2 (50% assist) Chair Transfer Ability Independent Sit to Stand Bed Transfer Ability Minimal x 1 (25% assist) Rehab PT IP prob,goals,plan Problems Date of Evaluation: 12/04/19 PT IP Problems Bed Mobility,Transfers,Gait, Self care Rehab Potential Rehab Potential Good Equipment Needs Assistive Devices Standard Walker,Rolling / Wheeled Walker Plan PT Intervention Plan Bed Mobility,Transfers,Gait, Self care,Safety,Therapeutic Exercise PT Plan Frequency BID Duration LOS Discharge Goals Bed Transfer Ability Minimal x 1 (25% assist) Sit to Stand Chair Transfer Ability Supervision/Stand by Ambulation Assistive Device Rolling Walker Ambulation Distance (feet) 15 Discharge Plan PT Discharge Plan Pt. would benefit from a SNF to be better able to care for himself and perform ADLs independently. If pt. is unable
--- NOTE | 2019-12-04 11:03 | HMH.ORTHPN ---
Subjective Date: 12/04/19 Time: 10:00 Principal diagnosis: s/p L MARILYN Interval history: The patient is doing well this morning. He has been seen by PT/OT, who got him up to a bedside chair, where he is currently. Pain reported in L hip, but tolerable with medication. No f/c, no n/v/d, no chest pain/SOA. No numbness/tingling reported in LLE. PN: Obj Ex Vital signs: Temp Pulse Resp BP Pulse Ox 97.5 F L 73 17 133/74 97 12/04/19 08:09 12/04/19 08:09 12/04/19 08:00 12/04/19 08:09 12/04/19 08:00 - Constitutional no acute distress, average body habitus - Routine HEENT Exam Head: Present: normocephalic Eye: Present: EOMI ENT: Present: mucous membranes moist - Routine Neck Exam Present: supple, trachea midline - Routine Respiratory Exam Absent: respiratory distress - Routine Cardiovascular Exam Present: RRR - Routine Abdominal Exam Present: soft. Absent: tenderness - Routine Exam Comments: tovar to gravity - Routine Extremities Exam Comments: hip abduction pillow in place L hip dressing c/d/i w/o strikethrough +DF/PF/EHL LLE SILT distally LLE in all distributions L calf soft, non-tender palpable pedal pulses LLE, foot pink/warm - Routine Skin Exam Present: warm - Routine Neurological Exam Present: alert, oriented X3, moving all extremities, normal tone, vision grossly intact, hearing grossly intact, normal speech. Absent: sensory deficit, motor deficit, altered mental status - Routine Psychiatric Exam Present: normal affect - Urinary Catheter Management Coude Cath placed during this visit: yes Urethral indwelling: Yes Reason for continuing: Surgical procedure Insertion date: 12/04/19 Progress Note: A&P (1) Hypertension Status: Acute Current Visit: Yes (2) Avascular necrosis of bone of left hip Status: Acute Current Visit: Yes (3) CAD (coronary artery disease) Status: Chronic Current Visit: No (4) Smoker Status: Chronic Current Visit: No Assessment and Plan for All Diagnoses:: 54yo M POD 1 s/p L MARILYN -- WBAT LLE, posterior hip precautions -- hip abduction pillow while in bed -- PT/OT to continue while admitted -- ice pack L hip as needed -- d/c guy now -- finish 24hr IV prophy antibiotics today -- DVT prophy: lovenox to start today -- SCDs BLE -- encourage IS 10x/hr while awake -- Dr. Monahan on consult for medical management -- care management consult for dispo planning; anticipate d/c home with HHPT, likely tomorrow
--- NOTE | 2019-12-04 11:38 | HMH.OTEV ---
OT Inpatient Evaluation Rehab OT IP Evaluation Start: 12/03/19 20:37 Freq: ONCE Status: Complete Protocol: Document 12/04/19 11:25 VERN (Rec: 12/04/19 11:32 VERN [id number]) Rehab OT IP Assessment Subjective History 54 year old male who has been having pain in B hips since spring without known injury underwent s/p L MARILYN on 12/03/19 without complications. PMH: CAD, GERD, Heart Murmur, HLD, [place]. Subjective I just feel dizzy. Objective Patient Orientation Person,Place,Time,Name,Age, Birthday,Day of Month,Day of Week,Month,Year,Situation Upper Extremity Gross ROM WNL Bed Mobility bed mobility-scooting,bed mobility - supine/sit,bed mobility - rolling Assist Level Moderate x 2 (50% assist) Transfer Training Sit/Stand Transfer Assist Level Moderate x 2 (50% assist) Chair Transfer Ability Moderate x 2 (50% assist) Chair Transfer Technique Sit to/from Ambulatory Chair Transfer Assistive Devices Standard Walker Feeding Ability Independent Lower Body Dressing Ability Unable/Dependant decrease in endurance Yes Rehab OT IP prob,goals,plan Problems Date of Evaluation: 12/04/19 OT IP Problems Bed Mobility,Transfers,Balance ,Self care,Safety Rehab Potential Rehab Potential Good Equipment Needs Assistive Devices Rolling / Wheeled Walker Plan OT intervention Plan Bed Mobility,Transfers,Balance ,Self care,Safety,Therapeutic Exercise OT Plan Frequency Daily Duration LOS Discharge Goals Bed Mobility Ability Assistance x1 Sit to Stand Chair Transfer Ability Minimal x 1 (25% assist) Chair Transfer Ability Minimal x 1 (25% assist) Chair Transfer Technique Stand Step Pivot Chair Transfer Assistive Devices Standard Walker Lower Body Dressing Ability Assistance X1 Upper Body Dressing Ability Assistance X1 Bathing Ability Assistance x1 Performing Toilet Hygiene Ability Assistance X1 Overall Commode/Toilet Transfer Ability Assistance x1 Commode/Toilet Transfer Technique Stand Step Pivot Commode/Toilet Transfer Assistive 3-in-1 Commode Devices decrease in endurance Yes Discharge Plan OT Discharge Plan Patient plans to discharge to
--- NOTE | 2019-12-04 11:49 | SW/DCPLANNER ---
Addendum entered by Gracy Vazquez 12/05/19 14:40: Patient information has been faxed to [facility]. I have spoke with Laura from [facility] to confirm patient information has been received and services will begin tomorrow for this patient. [facility] has also delivered a rolling walker for this patient. Patient will discharge home today. Original Note: I have spoke with this patient regarding discharge plans. Patient did have hip replacement last night and has worked with PT today. PT has suggested placement but stated patient could go home with home health. Patient stated that he prefers to discharge home with home health services at time of discharge. Patient stated he resides in [place] and prefers to use [facility]. I will fax patient information and order for home health services at time of discharge. Patient has also stated that he will need a rolling walker at home. Patient has all other DME at home. The plan for this patient is to discharge home tomorrow pending no setbacks. I will set up [facility] home health and a rolling walker thru [facility] per patients request.
--- NOTE | 2019-12-04 12:04 | PC.NURSE ---
pt will need a rolling walker rather than a cane d/t gait and mobility issues
--- NOTE | 2019-12-04 13:44 | P.CONS_ITS ---
*Admission Date: 12/04/19 *Reason for consult:: medical follow up *History of present illness: 54-year-old gentleman returns for follow-up of bilateral hip pain. He has previously seen Dr. Burden in July 2019 for the same complaint, and avascular necrosis of bilateral femoral heads was diagnosed. His pain began in the spring 2019 with no known injury. At that time his right hip was more painful than the left. Recently however the left hip is more painful than the right. He requires the use of crutches and/or a cane for ambulation. He does have a history of chronic smoking and alcohol use, though he says the alcohol is limited to a few times per week. He does smoke 1 pack of cigarettes daily. No reported steroid use or chemotherapy/radiation. No known personal or family history of sickle cell disease. He is interested in hip replacement and has obtained medical and cardiology clearances for the surgery. Dr. Burden has been out on leave for the last 6 weeks and the patient does not wish to wait until he returns to proceed with surgery. He reports a history of cervical and lumbar degenerative disc disease with pain and occasional radiculopathy but no weakness. He denies any current numbness or tingling in bilateral lower extremities. He has never had surgery on either hip. He is on no anticoagulants but does take a baby aspirin daily. He localizes the pain to anterior and posterior aspect of the hip with radiation into the upper thigh. Walking, sitting and laying flat exacerbate his pain. He rates his pain a 10 out of 10. No history of any fevers, chills or rigors. MRI scan in July was also concerning for possible nondisplaced intertrochanteric fracture of the right femur, which was excluded based on CT done at that time. Septic arthritis remained in the differential as well, which was not thought to be likely given no elevation of his white blood cell count, ESR or CRP. I discussed treatment options with the patient at length, and at this time I recommend total hip arthroplasty. I believe it is too late for core decompression, definitely on the right, but I do not think it would be effective on the left at this time either. The right has started to show signs of some collapse, and I believe the left is close behind it. I told the patient we could proceed with whichever hip is more painful at this time, which currently is the left hip. I discussed the risks and benefits of the surgery at length, in addition to the expected perioperative course, hospital stay and need for postoperative physical therapy. We also discussed the risks of surgery, which include but are not limited to: bleeding, infection, intraoperative fracture, neurovascular damage including postoperative foot drop, periprosthetic fracture postoperatively, postoperative hip dislocation, need for possible revision surgery in the future, wound healing complications due to his status is a smoker, and the possibility of continued pain and/or disability despite surgery. The patient vocalized understanding and informed consent was obtained. I have asked the patient to stop his aspirin 1 week prior to surgery. We will obtain preoperative labs and MRSA nasal swab. If the nasal swab is positive we will start Bactroban 5 days prior to surgery. The patient underwent L MARILYN this afternoon without complication. EBL was 200cc, with 1800cc IVF (LR), and 100cc UOP. Received 2g Ancef IV and 2 doses of TXA. pt seen for medical consult [facility] History I have reviewed the patient's past medical history: Yes Medical History: Reports:: Congestive Heart Failure, Coronary Artery Disease, Gastroesophageal Reflux Disease(GERD), Heart Murmur, Hyperlipidemia, Hypertension, Myocardial Infarction Denies::
--- NOTE | 2019-12-04 18:05 | PC.NURSE ---
IV pump was not cleared by deputy editor in chief this AM. My I&O reflects this
--- NOTE | 2019-12-04 19:26 | PC.NURSE ---
report given to danial
--- NOTE | 2019-12-05 02:03 | PC.NURSE ---
Addendum entered by Sweta Cramer RN 12/05/19 02:11: Tolerates diet well. Original Note: Pt is alert and oriented x4. No acute changes noted from previous shift. Pt rested well with eyes closed this shift with no new complaints. Administered [place] x1 thus far for pain relief. Upon reassessment pt resting with eyes closed with no further complaints. PERRLA. Bilateral hand broomcorn grader noted equal and strong. Cap refill < 3 seconds. Bilateral breath sounds noted clear t/o upon auscultation. Encouraged use of incentive spirometer while awake this shift. Pt able to demonstrate appropriate use of device. Tolerated RA well with no c/o SOA. Active bowel sounds noted in all 4 quads upon auscultation. Denies abd pain upon palpation. Abd noted soft. No N/V/D. Refused Doc Sod at PM med pass, states his bowels have moved quite frequently on previous shift and have been soft in consistency. Adequate urine output per urinal at bedside. Urine noted clear and dark yellow in color. Dsg to left hip noted C/D/I. Ice pack applied intermittently. Abduct pillow in place between legs while lying in bed, pt tolerates well. HOb remains > 30 degrees. No edema noted. SCUDS to LLE. Tolerates amb well with assist of walker. Spouse remains at bedside t/o shift. VSS. Remains safe. Call light within reach. Will continue to monitor.
[2019-12-05 04:00] VITALS: BP 132/59; PULSE 84; RESP 19; TEMP 36.7; O2SAT 98
[2019-12-05 06:01] LABS: Basophils % 0.3 % (0.1-2.0); Eosinophils # 0.1 K/mm3 (0.0-0.4); Eosinophils % 1.3 % (0.1-12.0); Hematocrit 35.5 % (42.0-52.0); Hemoglobin 12.5 g/dL (14.1-18.0); Lymphocytes # 2.1 K/mm3 (0.7-4.5); Lymphocytes % 18.4 % (10-50); Mean Corpuscular HGB Conc 35.3 g/dL (31.8-35.4); Mean Corpuscular Hemoglobin 32.9 pg (27.0-31.2); Mean Corpuscular Volume 93.3 fl (80-94); Mean Platelet Volume 9.4 fl (7.4-10.4); Monocytes # 0.6 K/mm3 (0.1-1.0); Monocytes % 5.3 % (1.7-9.3); Neutrophils # 8.3 K/mm3 (1.8-7.8); Neutrophils % 74.8 % (37.0-80.0); Platelet Count 172 K/mm3 (142-424); Red Blood Count 3.81 M/mm3 (4.60-6.20); Red Cell Distribution Width 13.2 % (11.5-17.5); White Blood Count 11.2 K/mm3 (4.8-10.8)
[2019-12-05 06:10] LABS: Chloride 101 mmol/L (98-107); Potassium 4.1 mmoL/L (3.5-5.1); Sodium 134 mmol/L (136-145)
[2019-12-05 06:13] LABS: Anion Gap 10.1 mEq/L (5-15); Blood Urea Nitrogen 7 mg/dl (9-20); Carbon Dioxide 27 mmol/L (22.0-30.0); Creatinine Clearance Estimated 118 mL/min (50-200); Estimated Glomerular Filt Rate 101 ml/min (>60); GFR (African American) 122 ML/MIN (>60)
[2019-12-05 06:14] LABS: Glucose 170 mg/dl (74-100)
[2019-12-05 07:50] VITALS: BP 111/51; PULSE 62; RESP 18; TEMP 37.1; O2SAT 94
--- NOTE | 2019-12-05 09:19 | PC.NURSE ---
pt ambulated to from room to nursing educator office door and back. no distress noted.
--- NOTE | 2019-12-05 13:28 | HMH.ORTHPN ---
Subjective Date: 12/05/19 Time: 13:00 Principal diagnosis: s/p L MARILYN Interval history: The patient is doing well this afternoon. Persistent soreness is present in the left hip but this is controlled with medication. He has been out of bed frequently and has been working with physical therapy twice daily. He walked in the hallway 2 times this morning. He feels he is safe to return home with home physical therapy. He is eating and drinking well and voiding spontaneously. He voices cooperativeness and ability to perform injections of Lovenox at home on discharge. PN: Obj Ex Vital signs: Temp Pulse Resp BP Pulse Ox 98.8 F 62 18 111/51 L 94 L 12/05/19 07:50 12/05/19 07:50 12/05/19 07:50 12/05/19 07:50 12/05/19 07:50 - Constitutional no acute distress - Routine HEENT Exam Head: Present: normocephalic Eye: Present: EOMI ENT: Present: mucous membranes moist - Routine Neck Exam Present: trachea midline - Routine Respiratory Exam Absent: respiratory distress - Routine Cardiovascular Exam Present: RRR - Routine Abdominal Exam Present: soft. Absent: tenderness - Routine Extremities Exam Comments: hip abduction pillow in place L hip dressing c/d/i w/o strikethrough --> removed, incision c/d/i +DF/PF/EHL LLE SILT distally LLE in all distributions L calf soft, non-tender palpable pedal pulses LLE, foot pink/warm - Routine Skin Exam Present: warm - Routine Neurological Exam Present: alert, oriented X3, moving all extremities, normal tone, vision grossly intact, hearing grossly intact, normal speech. Absent: sensory deficit, motor deficit, altered mental status - Routine Psychiatric Exam Present: normal affect - Urinary Catheter Management Coude Cath placed during this visit: yes, but has since been removed by the nurse Urethral indwelling: Yes Insertion date: 12/04/19 Removal date: 12/04/19 Progress Note: A&P (1) Hypertension Status: Acute Current Visit: Yes (2) Avascular necrosis of bone of left hip Status: Acute Current Visit: Yes (3) CAD (coronary artery disease) Status: Chronic Current Visit: No (4) Smoker Status: Chronic Current Visit: No (5) Overweight (BMI 25.0-29.9) Status: Acute Current Visit: Yes (6) Anemia Status: Acute Current Visit: Yes Assessment and Plan for All Diagnoses:: 54yo M POD 2 s/p L MARILYN -- WBAT LLE, posterior hip precautions -- hip abduction pillow while in bed -- PT/OT to continue while admitted -- ice pack L hip as needed -- DVT prophy: lovenox, SCDs BLE -- encourage IS 10x/hr while awake -- Dr. Monahan on consult for medical management -- care management consult for dispo planning; anticipate d/c home today
--- NOTE | 2019-12-05 13:36 | HMH.DCSUM ---
General - General Admission date:: 12/03/19 Discharge date: 12/05/19 HPI HPI: 54-year-old gentleman returns for follow-up of bilateral hip pain. He has previously seen Dr. Burden in July 2019 for the same complaint, and avascular necrosis of bilateral femoral heads was diagnosed. His pain began in the spring 2019 with no known injury. At that time his right hip was more painful than the left. Recently however the left hip is more painful than the right. He requires the use of crutches and/or a cane for ambulation. He does have a history of chronic smoking and alcohol use, though he says the alcohol is limited to a few times per week. He does smoke 1 pack of cigarettes daily. No reported steroid use or chemotherapy/radiation. No known personal or family history of sickle cell disease. He is interested in hip replacement and has obtained medical and cardiology clearances for the surgery. Dr. Burden has been out on leave for the last 6 weeks and the patient does not wish to wait until he returns to proceed with surgery. He reports a history of cervical and lumbar degenerative disc disease with pain and occasional radiculopathy but no weakness. He denies any current numbness or tingling in bilateral lower extremities. He has never had surgery on either hip. He is on no anticoagulants but does take a baby aspirin daily. He localizes the pain to anterior and posterior aspect of the hip with radiation into the upper thigh. Walking, sitting and laying flat exacerbate his pain. He rates his pain a 10 out of 10. No history of any fevers, chills or rigors. MRI scan in July was also concerning for possible nondisplaced intertrochanteric fracture of the right femur, which was excluded based on CT done at that time. Septic arthritis remained in the differential as well, which was not thought to be likely given no elevation of his white blood cell count, ESR or CRP. I discussed treatment options with the patient at length, and at this time I recommend total hip arthroplasty. I believe it is too late for core decompression, definitely on the right, but I do not think it would be effective on the left at this time either. The right has started to show signs of some collapse, and I believe the left is close behind it. I told the patient we could proceed with whichever hip is more painful at this time, which currently is the left hip. I discussed the risks and benefits of the surgery at length, in addition to the expected perioperative course, hospital stay and need for postoperative physical therapy. We also discussed the risks of surgery, which include but are not limited to: bleeding, infection, intraoperative fracture, neurovascular damage including postoperative foot drop, periprosthetic fracture postoperatively, postoperative hip dislocation, need for possible revision surgery in the future, wound healing complications due to his status is a smoker, and the possibility of continued pain and/or disability despite surgery. The patient vocalized understanding and informed consent was obtained. I have asked the patient to stop his aspirin 1 week prior to surgery. We will obtain preoperative labs and MRSA nasal swab. If the nasal swab is positive we will start Bactroban 5 days prior to surgery. The patient underwent L MARILYN this afternoon without complication. EBL was 200cc, with 1800cc IVF (LR), and 100cc UOP. Received 2g Ancef IV and 2 doses of TXA. Hospital Course Hospital Course: The patient did well during his admission and there were no medical complications. Ferrell was removed on postoperative day 1. Medication was available PRN. He worked with physical therapy 2 times daily and by postoperative day 2 was walking in the hallway. His pain was well-controlled on oral medication and there were no issues pending discharge. Home health physical therapy was arranged. He was seen by his primary care who did not see any medical issues that needed to b
--- NOTE | 2019-12-05 18:40 | PC.NURSE ---
PATIENT AMBULATED 2X IN HALLWAY WITH WALKER AND SPOUSE STAND BY. PATIENT TOLERATED WELL. AT D/C PATIENT WAS ORDERED PERCOCET FOR PAIN. PATIENT STATED THAT HE CAN NOT TAKE THAT MEDICATION DUE TO ALLERGIC REACTION TO OXYCODONE. DR. BRICENO NOTIFIED. PER OKAY TO ADMINISTER NORCO PAIN MEDICATION AT DISCHARGE AND MD WILL ORDER ANOTHER PAIN MEDICATION WHEN AVAILABLE. PATIENT LEFT FLOOR VIA WHEELCHAIR. NO NEW NEEDS OR CONCERNS AT THIS TIME.
== END 2019-12-05 14:00 | disposition home health service (06) ==
LOC: 2ND 21:42
PROVIDERS: Admitting Provider Orthopaedic Surgery; PCP Nurse Practitioner Family; Visit Provider Orthopaedic Surgery
PROC: (CPT 27130; principal; 2019-12-03 15:45)
DX: M87.052 Idiopathic aseptic necrosis of left femur (principal); I25.10 Atherosclerotic heart disease of native coronary artery without angina pectoris; I10 Essential (primary) hypertension; Z72.0 Tobacco use; D64.9 Anemia, unspecified; Z79.899 Other long term (current) drug therapy; Z88.8 Allergy status to other drugs, medicaments and biological substances
CPT/HCPCS: 27130; 36415; 73502; 80048; 81001; 85025; 86328; 86850; 87070; 87075; 87205; 96374; 97116; 97161; 97165; 97530; C1713; C1776; G0378; J2704

== ENCOUNTER → 2019-12-11 14:40 | Outpatient (CLI) | payer OTHER, SELFPAY ==
--- NOTE | 2019-12-11 14:41 | CA_ITS ---
APPROVED REPORT Left Lower Extremity Venous Study for DVT. Trial Attorney: CT Indications Lower Extremity Pain: Left Lower Extremity Edema: Left LLE Edema, Risk Factors Post OP S/P Hip surgery 12/10/19. Medications Lovenox x 12 days post op Vein Imaging CFV (L): compressive, spontaneous, phasic, augmentation SFJ (L): compressive, spontaneous, phasic, augmentation FEM (L): compressive, spontaneous, phasic, augmentation POP (L): compressive, spontaneous, phasic, augmentation DFV (L): compressive, spontaneous, phasic, augmentation PTV (L): compressive, spontaneous, phasic, augmentation GSV (L): compressive, spontaneous, phasic, augmentation SSV (L): compressive, spontaneous, phasic, augmentation Peroneals (L):compressive, spontaneous, phasic, augmentation GAS (L): compressive, spontaneous, phasic, augmentation Findings LLE neg for DVT/SVT Vessels fully compressible. Conclusion LLE neg for DVT/SVT Vessels fully compressible. Critical Notification Critical Value: No Physician Notified Date: 12/11/2019 Time: 15:30 Physician Name: anabela Barone rn Report Read Back Electronically signed by : Ede Herrera MD 12/11/2019 16:48:12
== END ==
PROVIDERS: PCP Nurse Practitioner Family; Visit Provider Nurse Practitioner Family
DX: M79.662 Pain in left lower leg (principal); R60.0 Localized edema
CPT/HCPCS: 93971

== ENCOUNTER → 2019-12-16 10:39 | Outpatient (CLI) | payer OTHER, SELFPAY ==
--- NOTE | 2019-12-16 10:46 | XR_ITS ---
PROCEDURE: XR HIP LT 2-3V W/PELVIS CLINICAL INDICATION: sp LT total hip Follow-up hip replacement COMPARISON: CR XR HIP LT 2-3V W/PELVIS from 12/03/2019 FINDINGS: Status post left-sided total hip replacement with good alignment and no evidence of orthopedic complication. There is a small area of sclerosis involving the sacral side of the SI joint on the left Avascular necrosis involves the right femoral head with mild cortical collapse of the femoral head. IMPRESSION: No change good alignment status post total left hip replacement with avascular necrosis noted of the right hip Dictated by: Ede Herrera MD 12/16/2019 11:11 Ede Herrera MD in [place] 12/16/2019 11:11
== END ==
PROVIDERS: PCP Nurse Practitioner Family; Visit Provider Orthopaedic Surgery
DX: Z09 Encounter for follow-up examination after completed treatment for conditions other than malignant neoplasm (principal); M87.052 Idiopathic aseptic necrosis of left femur
CPT/HCPCS: 73502

== ENCOUNTER 2020-01-01 13:48 | Outpatient (RCR) | payer OTHER, SELFPAY ==
--- NOTE | 2020-01-01 14:47 | HMH.PTOPWND ---
Rehab Outpt Wound Evaluation Rehab OP Wound Evaluation Start: 01/01/20 14:03 Freq: Status: Active Protocol: Document 01/01/20 14:35 PHORJOHNIE (Rec: 01/01/20 14:47 PHORNE [id number]) Electronically Signed By Collins Herrera, PT 01/01/20 14:35 Subjective/History History History Pt is 54 yowm who presents with increased L LE edema x ~ 1 mo S/P L MARILYN. He had MARILYN performed due to avascular necrosis of the femoral head. He reports edema is increased during the day and decreased at night with leg propped. He reports some increased pain with the edema in the lower leg. He reports, I crushed my left ankle in 2006 when I fell off a hay wagon (this limits L ankle AROM severely at baseline). He also has PMH of CHF, CAD, HL, HTN, and CA. Subjective Subjective Pt reports current pain 7/10 in the R thigh, 9/10 at worst in the L lower leg. He report tenderness to palpation in the L lower leg 3/4. Lymphedema Eval Classification of Lymphedema Secondary Lymphedema Yes: Hx of severe L ankle inj Post-Surgical Lymphedema Yes: S/P L MARILYN Stemmer's sign Stemmer's Sign yes Stage of Lymphedema Lymphedema stages Stage I (Pitting edema, reduces w/ elevation, no fibrosis) Skin Changes Dry Skin Yes Taut, Shiny Skin Yes Redness Yes Other Changes Yes Pain Scale Pain Scale (0-10) 9 Affected Extremities Areas Affected by Lymphedema/Edema Left Lower Extremity Lower Extremity Measurements Left MTP Measurement (cm) 25.4 Heel Measurement (cm) 35.5 10 cm Proximal to Lateral Malleoli 29.2 Measurement (cm) 20 cm Proximal to Lateral Malleoli 34.9 Measurement (cm) 30 cm Proximal to Lateral Malleoli 36.0 Measurement (cm) 40 cm Proximal to Lateral Malleoli 36.4 Measurement (cm) 50 cm Proximal to Lateral Malleoli 0 Measurement (cm) 60 cm Proximal to Lateral Malleoli 0 Measurement (cm) Lower Extremity Measurement Total (cm) 197.4 Manual Lymphatic Drainage Treatment Area MLD Treatment Area Left Lower Extremity Woun
== END 2020-01-01 13:50 | disposition home or self-care (01) ==
LOC: PT 13:48
PROVIDERS: PCP Nurse Practitioner Family; Visit Provider Orthopaedic Surgery
DX: M25.552 Pain in left hip (principal)
CPT/HCPCS: 97162

== ENCOUNTER → 2020-01-17 10:23 | Outpatient (CLI) | payer OTHER, SELFPAY ==
--- NOTE | 2020-01-17 10:27 | XR_ITS ---
PROCEDURE: XR HIP LT 2-3V W/PELVIS CLINICAL INDICATION: LT MARILYN FU Follow-up hip replacement COMPARISON: CR XR HIP LT 2-3V W/PELVIS from 12/16/2019 FINDINGS: Status post total left hip replacement. Good alignment. Avascular necrosis once again noted involving the right hip with subchondral mixed sclerosis and lucency and minimal fragmentation of the femoral head. IMPRESSION: Status post left hip replacement with good alignment Avascular necrosis right hip Dictated by: Ede Herrera MD 01/17/2020 10:53 Ede Herrera MD in [place] 01/17/2020 10:53
== END ==
PROVIDERS: PCP Nurse Practitioner Family; Visit Provider Orthopaedic Surgery
DX: M25.552 Pain in left hip (principal); Z96.642 Presence of left artificial hip joint
CPT/HCPCS: 73502

== ENCOUNTER 2020-02-21 15:00 | Outpatient (RCR) | payer OTHER, SELFPAY ==
--- NOTE | 2020-02-04 15:37 | HMH.PTOPEV ---
PT Outpatient Evaluation Rehab PT Outpatient Evaluation Start: 02/04/20 15:22 Freq: Status: Active Protocol: Document 02/04/20 15:22 JAMES (Rec: 02/04/20 15:37 JAMES [id number]) Electronically Signed By Jonh Grant, PT 02/04/20 15:22 Outpatient Therapy Subjective History Subjective History Patient is a 54 year old male presenting to outpatient PT with reports of L hip pain/ weakness S/P L MARILYN 12/03/19. Patients main complaint today is R hip pain, which he reports is to be replaced 2020. Patient received home health PT services for approximately 3 weeks after surgery. He initially had some lymphedema issuses which have resolved. Comorbidities include hx of HTN and HL. Chief Complaint Pain,Weakness Symptom Type Ache,Dull Symptoms Relieved By Rest/Positioning Symptoms Aggravated By Standing,Physical Activity, Walking Prior Functional Limitations Standing,Walking Current Functional Limitations Housework,Standing,Squatting, Walking,Stairs,Balance Symptom Description Constant and Continuous Level of pain today (0-10) 4 Pain scale - at its best (0-10) 4 Pain scale - at its worst (0-10) 4 Hip/Knee Eval Gait Observation General Gait Pattern Observation Antalgic Gait,Decrease Weight Bear (R) Assistive Device Assistive Devices Axillary Crutches Palpation Tenderness left Knee Palpation Finding Tenderness Knee Palpation Overall Comment surgical incision 2/4 MMT Hip Flexion Strength Grade 4 Good Hip Abduction Strength Grade 4- Good- Hip Adduction Strength Grade 4- Good- Hip Extension Strength Grade 4- Good- Hip External Rotation Strength Grade 3+ Fair+ Hip Internal Rotation Strength Grade 3+ Fair+ Knee Extension Strength Grade 4 Good Knee Flexion Strength Grade 4- Good- ROM Hip Flexion w/Knee Flexed Active Range 85 of Motion (degrees) Hip Flexion w/Knee Flexed Passive Range 94 of Motion (degrees) Hip Flexion w/Knee Extended Active Range 45 of Motion (degrees) Hip Flexion w/Knee Extended Passive 50 Range of Motion (degrees) Hip Abduction Active Range of Motion ( 35 degrees) Hip Abduction Passive Range of Motion ( 40 degrees) Hip External Rotation Active Range of 32 Motion (degrees)
== END 2020-02-21 15:05 | disposition home or self-care (01) ==
LOC: PT 15:00
PROVIDERS: PCP Nurse Practitioner Family; Visit Provider Orthopaedic Surgery
DX: M25.552 Pain in left hip; Z96.642 Presence of left artificial hip joint
CPT/HCPCS: 97010; 97014; 97110; 97163; G0283

== ENCOUNTER → 2020-03-02 09:34 | Outpatient (CLI) | payer OTHER, SELFPAY ==
--- NOTE | 2020-03-02 09:38 | XR_ITS ---
PROCEDURE: XR HIP LT 2-3V W/PELVIS CLINICAL INDICATION: s/p L MARILYN 12/03/19 COMPARISON: CR XR HIP LT 2-3V W/PELVIS from 01/17/2020 FINDINGS: Status post total left hip arthroplasty. There is good alignment of the prosthesis. There is some heterotopic ossification developing medially. Severe avascular necrosis involves the right hip. There is some sclerosis of the left SI joint. IMPRESSION: Status post left hip replacement with good position. Severe avascular necrosis of the right hip. Dictated by: Ede Herrera MD 03/02/2020 10:03 Ede Herrera MD in [place] 03/02/2020 10:03
== END ==
PROVIDERS: PCP Nurse Practitioner Family; Visit Provider Orthopaedic Surgery
DX: M25.552 Pain in left hip (principal); Z96.642 Presence of left artificial hip joint
CPT/HCPCS: 73502

== ENCOUNTER → 2020-03-18 08:17 | Outpatient (CLI) | payer OTHER, SELFPAY ==
[2020-03-18 08:48] LABS: Basophils # 0.1 K/mm3 (0-0.2); Basophils % 0.7 % (0.1-2.0); Eosinophils # 0.4 K/mm3 (0.0-0.4); Hematocrit 48.9 % (42.0-52.0); Hemoglobin 17.3 g/dL (14.1-18.0); Lymphocytes # 2.9 K/mm3 (0.7-4.5); Mean Corpuscular HGB Conc 35.3 g/dL (31.8-35.4); Mean Corpuscular Hemoglobin 31.9 pg (27.0-31.2); Mean Corpuscular Volume 90.4 fl (80-94); Mean Platelet Volume 9.2 fl (7.4-10.4); Monocytes # 0.4 K/mm3 (0.1-1.0); Monocytes % 5.1 % (1.7-9.3); Neutrophils % 57.3 % (37.0-80.0); Platelet Count 195 K/mm3 (142-424); Red Blood Count 5.42 M/mm3 (4.60-6.20); White Blood Count 8.7 K/mm3 (4.8-10.8)
[2020-03-18 09:21] LABS: Chloride 102 mmol/L (98-107); Potassium 4.7 mmoL/L (3.5-5.1); Sodium 138 mmol/L (136-145)
[2020-03-18 09:23] LABS: Blood Urea Nitrogen 12 mg/dl (9-20); Estimated Glomerular Filt Rate 88 ml/min (>60); GFR (African American) 106 ML/MIN (>60)
[2020-03-18 09:24] LABS: Alanine Aminotransferase 43 U/L (12-78); Albumin Level 4.5 g/dl (3.5-5.0); Albumin/Globulin Ratio 1.5 (1.1-1.8); Alkaline Phosphatase 93 U/L (38-126); Anion Gap 9.7 mEq/L (5-15); Aspartate Amino Transferase 32 U/L (17-59); Bilirubin,Total 0.5 mg/dl (0.2-1.3); Calcium 10.3 mg/dl (8.4-10.2); Carbon Dioxide 31 mmol/L (22.0-30.0); Globulin 3.1 g/dL (1.3-3.2); Glucose 161 mg/dl (74-100); Total Protein,Serum 7.6 g/dl (6.3-8.2)
== END ==
PROVIDERS: Visit Provider Orthopaedic Surgery
DX: Z01.818 Encounter for other preprocedural examination (principal); M25.552 Pain in left hip
CPT/HCPCS: 36415; 80053; 85025

== ENCOUNTER → 2020-03-20 09:13 | Outpatient (CLI) | payer OTHER, SELFPAY ==
--- NOTE | 2020-03-20 09:16 | XR_ITS ---
PROCEDURE: XR HIP RT 2-3V W/PELVIS CLINICAL INDICATION: pre-hip replacement Pain COMPARISON: CR XR HIP LT 2-3V W/PELVIS from 03/02/2020 FINDINGS: Avascular necrosis involves the right hip with cortical collapse of the femoral head with subchondral lucency in the femoral head. There has been a prior total left hip prosthesis placed. Measuring devices placed along the lateral aspect of the hip for surgical planning. IMPRESSION: Severe avascular necrosis of the right hip with cortical collapse Dictated by: Ede Herrera MD 03/20/2020 17:01 Ede Herrera MD in [place] 03/20/2020 17:01
== END ==
PROVIDERS: PCP Nurse Practitioner Family; Visit Provider Orthopaedic Surgery
DX: Z01.818 Encounter for other preprocedural examination (principal); M25.551 Pain in right hip
CPT/HCPCS: 73502

== ENCOUNTER → 2020-03-23 08:12 | Outpatient (CLI) | payer OTHER, SELFPAY ==
[2020-03-23 08:13] LABS: MANUAL DIFFERENTIAL MANUAL DIFFERENTIAL (MANUAL DIFF)
[2020-03-23 08:54] LABS: Basophils # 0.1 K/mm3 (0-0.2); Basophils % 0.7 % (0.1-2.0); Eosinophils # 0.5 K/mm3 (0.0-0.4); Eosinophils % 5.5 % (0.1-12.0); Hemoglobin 17.3 g/dL (14.1-18.0); Lymphocytes # 2.8 K/mm3 (0.7-4.5); Lymphocytes % 33.7 % (10-50); Mean Corpuscular HGB Conc 33.8 g/dL (31.8-35.4); Mean Corpuscular Hemoglobin 31.3 pg (27.0-31.2); Mean Corpuscular Volume 92.5 fl (80-94); Mean Platelet Volume 9.6 fl (7.4-10.4); Monocytes # 0.4 K/mm3 (0.1-1.0); Monocytes % 4.6 % (1.7-9.3); Neutrophils # 4.6 K/mm3 (1.8-7.8); Neutrophils % 55.5 % (37.0-80.0); Platelet Count 187 K/mm3 (142-424); Red Blood Count 5.52 M/mm3 (4.60-6.20); Red Cell Distribution Width 14.4 % (11.5-17.5); White Blood Count 8.4 K/mm3 (4.8-10.8)
[2020-03-23 11:11] LABS: Coronavirus 19 IgG Antibody Negative (Negative); Coronavirus 19 IgM Antibody Negative (Negative)
[2020-03-23 11:37] LABS: Eosinophils % 8 % (0-3); Lymphocytes % 33 % (10-50); Monocytes % 7 % (2-9); Neutrophils % 52 % (42-76); Platelet Estimate Normal; RBC Morphology Normal; Total Cells Counted 100
== END ==
PROVIDERS: Visit Provider Orthopaedic Surgery
DX: Z01.812 Encounter for preprocedural laboratory examination (principal); Z11.52 Encounter for screening for COVID-19
CPT/HCPCS: 36415; 85007; 85014; 85018; 85048; 85049; 86328; 86850

== ENCOUNTER 2020-03-24 13:42 | Inpatient (IN) | payer OTHER, SELFPAY ==
[2020-03-20 15:35] VITALS: BMI 30.1
[2020-03-24] VITALS (19 sets, daily range): BP systolic 87–168; BP diastolic 50–96; PULSE 40–85; RESP 12–20; TEMP 36.2–43; O2SAT 93–100; BMI 30.1
--- NOTE | 2020-03-24 08:14 | HMH.ANESCL ---
[facility] Anesthesia Checklist - Patient Identification Patient Identification: Arm Band - Structural Data Admitted From: Home Planned Operative Procedure/s: Right Total Hip Arthroplasty Consent for Planned Operative Procedure(s) Verified: Yes Verified Documents: Surgical Consent, History and Physical - NPO Status Verified Time NPO: 00:00 - Additional verifications Anesthesia Reactions: No Hx Blood Transfusions: No Blood Transfusion Reaction: No - Airway Assessment C-Spine Mobility Assessed: Yes (mp2) TMJ Mobility Assessed: Yes Dentition: Good Dentition - Neurological Assessment Level of Consciousness: Awake, Alert - Anesthesia Plan Anesthesia Risk discussed: Yes Anesthesia Plan: Verified ASA Class: III Anesthesia Type: MAC w/Spinal [facility] History I have reviewed the patient's past medical history: Yes Medical History: Reports:: Congestive Heart Failure, Coronary Artery Disease, Gastroesophageal Reflux Disease(GERD), Heart Murmur, Hyperlipidemia, Hypertension, Myocardial Infarction Denies:: Cancer, Diabetes Mellitus Type 1, Diabetes Mellitus Type 2, Internal Pacemaker, MRSA, Seizures *Have you ever received a pneumonia vaccine?: No *Have you received a flu vaccine this season?: No Other Medical History: Reports: Arthritis. Denies: Blood Transfusion Reaction Anesthesia experience/problems:: nac Laterality Cases: Left: Arthroscopy Knee, Total Hip Replacement Other Surgeries: Yes: Cardiac Catheterization, Cardiac Surgery, Coronary Stent (x2), Other. No: Pacemaker Amputation: No Fractures: No - *Social History Smoking Status: Current every day smoker Tobacco Type: cigarettes # Packs/Day (cigarettes): 2 #Yrs smoked (if former smoker): 40 Alcohol Intake: current Alcohol Intake Frequency:: holidays/special occasions only Substance Use Type: denies use *Occupational Status:: employed Housing: house Household Members: spouse *Travel in the last 8 weeks: None Family Hx:: Cancer, Coronary Artery Disease, Heart Attack, Hyperlipidemia, Hypertension
--- NOTE | 2020-03-24 10:11 | HMH.PHAINT ---
MEDICATION RECONCILIATION COMPLETED ON PATIENT USING EXTERNAL FILL HISTORY FROM PHARMACY AND LIST FROM MD OFFICE. -BRIDGET SOTOD
--- NOTE | 2020-03-24 12:55 | XR_ITS ---
PROCEDURE: XR HIP RT 2-3V W/PELVIS CLINICAL INDICATION: s/p R MARILYN Follow-up total hip replacement COMPARISON: CR XR HIP RT 2-3V W/PELVIS from 03/20/2020 FINDINGS: Good alignment status post total hip replacement. Postsurgical gas is noted. There are 2 screws within the acetabular cup projecting into the acetabulum. The more medial of the 2 screws projects beyond the medial margin of the acetabulum into the soft tissues by approximately 1 cm. IMPRESSION: Status post total right hip replacement with good alignment as described above Dictated by: Ede Herrera MD 03/24/2020 16:36 Ede Herrera MD in [place] 03/24/2020 16:36
--- NOTE | 2020-03-24 12:56 | P.PN_ITS ---
[facility] Anesthesia Record Part I Intake, IV Amount: 200 Estimated blood loss (mL): 200 Urine output (mL): 250 Blood Products used (#): none Blood Pressure: 97/52 SaO2: 97 Pulse Rate: 67 Respiratory Rate: 18 Temperature: 97.2 F Patient is:: Drowsy Stable to PACU at:: 12:58
--- NOTE | 2020-03-24 13:04 | HMH.HP ---
*Admission Date: 03/24/20 *Chief complaint: s/p R MARILYN *History of present illness: 55yo M with AVN of bilateral hips, s/p L MARILYN 12/03/19. He did well after this surgery but has had progressive pain in the right hip with continued collapse of the femoral head. He continues to require the use of crutches and/or a cane for ambulation. He wished to proceed with R MARILYN. No change in his medical history since the L MARILYN, no new chest pain or shortness of breath. He does have a history of chronic smoking and alcohol use, though he says the alcohol is limited to a few times per week. He does smoke 1 pack of cigarettes daily. No reported steroid use or chemotherapy/radiation. No known personal or family history of sickle cell disease. I discussed the risks and benefits of the surgery at length, in addition to the expected perioperative course, hospital stay and need for postoperative physical therapy. We also discussed the risks of surgery, which include but are not limited to: bleeding, infection, intraoperative fracture, neurovascular damage including postoperative foot drop, periprosthetic fracture postoperatively, postoperative hip dislocation, need for possible revision surgery in the future, wound healing complications due to his status is a smoker, and the possibility of continued pain and/or disability despite surgery. The patient vocalized understanding and informed consent was obtained. Pre-operative labs were with normal limits. MRSA nasal swab could not be obtained within the necessary time frame prior to surgery so Bactroban was prescribed and used empirically; the patient used this intranasally BID x5 days. He has also held his aspirin for the past week. Pre-operative covid antibody testing was negative. The patient underwent R MARILYN this morning without complication. EBL was 200cc, with 2L crystalloid and 400cc UOP. Received 2g Ancef IV and 2 doses of TXA. [facility] History I have reviewed the patient's past medical history: Yes Medical History: Reports:: Congestive Heart Failure, Coronary Artery Disease, Gastroesophageal Reflux Disease(GERD), Heart Murmur, Hyperlipidemia, Hypertension, Myocardial Infarction Denies:: Cancer, Diabetes Mellitus Type 1, Diabetes Mellitus Type 2, Internal Pacemaker, MRSA, Seizures *Have you ever received a pneumonia vaccine?: No *Have you received a flu vaccine this season?: No Other Medical History: Reports: Arthritis. Denies: Blood Transfusion Reaction Anesthesia experience/problems:: nac Laterality Cases: Left: Arthroscopy Knee, Total Hip Replacement Other Surgeries: Yes: Cardiac Catheterization, Cardiac Surgery, Coronary Stent (x2), Other. No: Pacemaker Amputation: No Fractures: No - *Social History Smoking Status: Current every day smoker Tobacco Type: cigarettes # Packs/Day (cigarettes): 2 #Yrs smoked (if former smoker): 40 Alcohol Intake: current Alcohol Intake Frequency:: holidays/special occasions only Substance Use Type: denies use *Occupational Status:: employed Housing: house Household Members: spouse *Travel in the last 8 weeks: None Family Hx:: Cancer, Coronary Artery Disease, Heart Attack, Hyperlipidemia, Hypertension Review of Systems - Review of Systems Review of systems:: pertinent systems reviewed and negative unless documented below Meds Home Medications Medication Instructions Recorded Confirmed Type carvedilol 12.5 mg tablet 12.5 mg PO BID #60 tab 01/15/20 03/24/20 Rx Aspirin [Low Dose Aspirin EC] 81 mg PO DAILY 03/20/20 03/24/20 History Atorvastatin Calcium [Lipitor 40mg 40 mg PO HS 03/20/20 03/24/20 History Tab] Omeprazole 20 mg PO DAILY 03/20/20 03/24/20 History lisinopriL [Lisinopril 5mg 5 mg PO DAILY 03/20/20 03/24/20 History Tablet] Allergies Allergy/AdvReac Type Severity Reaction Status Date / Time acetaminophen [From Percocet] AdvReac Verified 03/10/20 10:51 oxycodone [From Percocet] AdvReac Verified 03/10/20 10:51 Exam Vital signs and Labs for [place]
--- NOTE | 2020-03-24 13:04 | HMH.OPNOTE ---
Date of procedure: 03/24/20 Pre-op Diagnosis:: avascular necrosis R hip Post-op Diagnosis:: avascular necrosis R hip Procedure performed:: R total hip arthroplasty (MARILYN) Surgeon:: Dorys Thomas MD Tube Building Machine Operator(s):: GLORIA Paris DENTAL OFFICE COORDINATOR:: Other Anesthesia: MAC, spinal Estimated blood loss (mL): 200 Clinical Note:: 55yo M with AVN of bilateral hips, s/p L MARILYN 12/03/19. He did well after this surgery but has had progressive pain in the right hip with continued collapse of the femoral head. He continues to require the use of crutches and/or a cane for ambulation. He wished to proceed with R MARILYN. No change in his medical history since the L MARILYN, no new chest pain or shortness of breath. He does have a history of chronic smoking and alcohol use, though he says the alcohol is limited to a few times per week. He does smoke 1 pack of cigarettes daily. No reported steroid use or chemotherapy/radiation. No known personal or family history of sickle cell disease. I discussed the risks and benefits of the surgery at length, in addition to the expected perioperative course, hospital stay and need for postoperative physical therapy. We also discussed the risks of surgery, which include but are not limited to: bleeding, infection, intraoperative fracture, neurovascular damage including postoperative foot drop, periprosthetic fracture postoperatively, postoperative hip dislocation, need for possible revision surgery in the future, wound healing complications due to his status is a smoker, and the possibility of continued pain and/or disability despite surgery. The patient vocalized understanding and informed consent was obtained. Pre-operative labs were with normal limits. MRSA nasal swab could not be obtained within the necessary time frame prior to surgery so Bactroban was prescribed and used empirically; the patient used this intranasally BID x5 days. He has also held his aspirin for the past week. Pre-operative covid antibody testing was negative. Operative findings:: vendor: [employer]: R3 shell, 3-hole; 58mm OD screws: 25mm x1, 30mm x1 liner: 58x36 w/20deg posterior lip Femur: Synergy stem, size 14 high offset head: oxinium 36mm +4 Operative note:: The patient was identified in preoperative holding and the R hip signed by myself. Consent was verified with the patient and all questions answered. He was then taken to the operating room where spinal anesthesia was administered on his hospital bed. Once spinal was performed, he was transferred to the operative table and 2g Ancef and the first dose of tranexamic acid was infused intravenously. The patient was then placed into the left lateral decubitus position with an axillary roll, arms on arm boards supported with pillows, and all bony prominences including the right lower extremity well-padded. SCD was placed on the left lower extremity. The right hip was then prepped and draped in the usual sterile fashion. Timeout was performed, identifying the correct patient, correct procedure and correct site. The procedure was begun by making a longitudinal, curvilinear incision over the posterolateral aspect the the right hip, centered over the greater trochanter. Subcutaneous tissue was dissected with cautery until fascia was encountered. The fascia was incised in line with the shaft of the femur distally and curved proximally; fibers of the gluteus edgar were bluntly spread with finger dissection. Charnley retractor was placed under the fascia. The hip joint was visualized short external rotators were identified; piriformis was tagged and reflected off the femur. Capsulotomy was completed and leaflets tagged as well. The hip was then gently dislocated and the femoral neck exposed; duran retractors were placed around the neck and used to protect the surrounding soft tissues. Approximately 1 fingerbreadth superior to the lesser trochanter, the femoral neck was cut using a femoral neck t
--- NOTE | 2020-03-24 13:40 | PC.NURSE ---
Pt arrived to the floor at this time.
[2020-03-24 14:18] LABS: Microscopic,Cath URINE MICROSCOPIC (MICROSCOPIC)
[2020-03-24 14:24] LABS: Appearance,Urine/Cath CLEAR (Clear); Bilirubin,Cath Negative (Negative); Blood, Urine/Cath Negative (Negative); Color,Urine/Cath YELLOW (Yellow); Glucose,Urine/Cath (UA) Negative (Negative); Ketones,Urine/Cath Negative (Negative); Leukocyte Esterase,Cath Negative (Negative); Nitrate,Cath Negative (Negative); Protein,Urine/Cath Negative (Negative); Specific Gravity, Urine/Cath 1.015 (1.005-1.030); Urobilinogen,Cath 0.2 EU/dl (0.2)
[2020-03-24 14:38] LABS: RBC,Urine/Cath Occasional # /hpf (0-3)
--- NOTE | 2020-03-24 18:08 | HMH.ANESII ---
[facility] Anesthesia Record Part II Discharge Time: 13:07 Destination: Medical Surgical Department PACU nurse assessment reviewed?: Yes Patient Condition:: Good Anesthesia Complications:: None Swallowing reflex intact?: Yes Cyanosis?: No Blood Pressure: 119/74 Pulse Rate: 85 Temperature: 98.0 F Mental Status: Alert & Oriented Pain level:: 5 Nausea and/or vomitting:: None Intake, IV Amount: 40
--- NOTE | 2020-03-24 20:15 | PC.NURSE ---
singe obtaining care of patient he has done well. after dilaudid shot noted to be a little sleepy. he rings out as needed. minimal complaints of pain. abducter pillow in place. refusing teds, did not want the scuds pump. vitals have been stable. dressing c/d/i
--- NOTE | 2020-03-24 20:15 | HMH.CONS ---
*Admission Date: 03/24/20 *Reason for consult:: recent ortho surg *History of present illness: this pt has 5yo M with AVN of bilateral hips, s/p L MARILYN 12/03/19. He did well after this surgery but has had progressive pain in the right hip with continued collapse of the femoral head. He continues to require the use of crutches and/or a cane for ambulation. He wished to proceed with R MARILYN. No change in his medical history since the L MARILYN, no new chest pain or shortness of breath. He does have a history of chronic smoking and alcohol use, though he says the alcohol is limited to a few times per week. He does smoke 1 pack of cigarettes daily. No reported steroid use or chemotherapy/radiation. No known personal or family history of sickle cell disease. I discussed the risks and benefits of the surgery at length, in addition to the expected perioperative course, hospital stay and need for postoperative physical therapy. We also discussed the risks of surgery, which include but are not limited to: bleeding, infection, intraoperative fracture, neurovascular damage including postoperative foot drop, periprosthetic fracture postoperatively, postoperative hip dislocation, need for possible revision surgery in the future, wound healing complications due to his status is a smoker, and the possibility of continued pain and/or disability despite surgery. The patient vocalized understanding and informed consent was obtained. Pre-operative labs were with normal limits. MRSA nasal swab could not be obtained within the necessary time frame prior to surgery so Bactroban was prescribed and used empirically; the patient used this intranasally BID x5 days. He has also held his aspirin for the past week. Pre-operative covid antibody testing was negative.this is per dr patel he is followed in [facility] pc office and last visit 01/31/20-he has hx of cad and followed by dr renate escobar and uses tob - he is usually compliant with meds - he denied any recent chest pain - he has had sig ortho issues -in 11/30 had lt hip surg gentleman returns for follow-up of bilateral hip pain. He has previously seen Dr. Burden in July 2019 for the same complaint, and avascular necrosis of bilateral femoral heads was diagnosed. His pain began in the spring 2019 with no known injury. At that time his right hip was more painful than the left. Recently however the left hip is more painful than the right. He requires the use of crutches and/or a cane for ambulation. He does have a history of chronic smoking and alcohol use, though he says the alcohol is limited to a few times per week. He does smoke 1 pack of cigarettes daily. No reported steroid use or chemotherapy/radiation. No known personal or family history of sickle cell disease. He is interested in hip replacement and has obtained medical and cardiology clearances for the surgery. Dr. Burden has been out on leave for the last 6 weeks and the patient does not wish to wait until he returns to proceed with surgery. He reports a history of cervical and lumbar degenerative disc disease with pain and occasional radiculopathy but no weakness. He denies any current numbness or tingling in bilateral lower extremities. He has never had surgery on either hip. He is on no anticoagulants but does take a baby aspirin daily. He localizes the pain to anterior and posterior aspect of the hip with radiation into the upper thigh. Walking, sitting and laying flat exacerbate his pain. He rates his pain a 10 out of 10. No history of any fevers, chills or rigors. MRI scan in July was also concerning for possible nondisplaced intertrochanteric fracture of the right femur, which was excluded based on CT done at that time. Septic arthritis remained in the differential as well, which was not thought to be likely given no elevation of his white blood cell count, ESR or CRP. I discussed treatment options with the patient at length, and at this time I recommend total hip arthroplas
[2020-03-25] VITALS: BP 134/66; PULSE 80; RESP 16; TEMP 36.3; O2SAT 95
[2020-03-25 03:55] VITALS: BP 126/66; PULSE 78; RESP 16; TEMP 36.7; O2SAT 95
--- NOTE | 2020-03-25 05:39 | PC.NURSE ---
Addendum entered by Pretty Epps RN 03/25/20 05:53: Ferrell cath remains patent and is draining clear, dark yellow urine per gravity. Original Note: Pt is A&Ox4. Pt has rested intermittently this shift. Abductor pillow has remained in place majority of the night except for one brief period of time where pt wanted to sit on side of the bed. Ice packs have been applied to pt's rt hip x2 this shift. Rt hip dressing remains CDI. IS placed in pt's room. Pt educated on it's purpose and how to use. Pt verbalized understanding. IS @ best 2500cc. Pt has requested PRN pain meds x1 this shift and verbalized favorable results during reassessment time. No other acute changes or complaints at this time.
[2020-03-25 06:32] LABS: Basophils % 0.3 % (0.1-2.0); Eosinophils # 0.3 K/mm3 (0.0-0.4); Eosinophils % 2.7 % (0.1-12.0); Hematocrit 43.6 % (42.0-52.0); Hemoglobin 14.1 g/dL (14.1-18.0); Lymphocytes # 2.2 K/mm3 (0.7-4.5); Lymphocytes % 17.1 % (10-50); Mean Corpuscular HGB Conc 32.4 g/dL (31.8-35.4); Mean Corpuscular Hemoglobin 31.7 pg (27.0-31.2); Mean Corpuscular Volume 97.9 fl (80-94); Mean Platelet Volume 9.4 fl (7.4-10.4); Monocytes # 0.6 K/mm3 (0.1-1.0); Monocytes % 4.4 % (1.7-9.3); Neutrophils # 9.6 K/mm3 (1.8-7.8); Neutrophils % 75.5 % (37.0-80.0); Platelet Count 178 K/mm3 (142-424); Red Blood Count 4.45 M/mm3 (4.60-6.20); Red Cell Distribution Width 14.8 % (11.5-17.5); White Blood Count 12.6 K/mm3 (4.8-10.8)
[2020-03-25 06:46] VITALS: BMI 30.2
[2020-03-25 06:49] LABS: Anion Gap 12.4 mEq/L (5-15); Blood Urea Nitrogen 14 mg/dl (9-20); Calcium 9.1 mg/dl (8.4-10.2); Carbon Dioxide 24 mmol/L (22.0-30.0); Chloride 98 mmol/L (98-107); Creatinine Clearance Estimated 123 mL/min (50-200); Estimated Glomerular Filt Rate 88 ml/min (>60); GFR (African American) 106 ML/MIN (>60); Glucose 210 mg/dl (74-100); Potassium 4.4 mmoL/L (3.5-5.1); Sodium 130 mmol/L (136-145)
[2020-03-25 08:00] VITALS: BP 155/58; PULSE 86; RESP 17; TEMP 36.7; O2SAT 98
--- NOTE | 2020-03-25 09:10 | HMH.PTEV ---
Physical Therapy Evaluation Rehab PT IP Evaluation Start: 03/24/20 12:56 Freq: ONCE Status: Active Protocol: Document 03/25/20 09:06 KATYDENICE (Rec: 03/25/20 09:10 BRANDI [id number]) Subjective/History History History THis is the initial IP PT evaluation for Tyler Sandra. Pt is a 55 y/o male admitted to [facility] s/p R MARILYN. Pt had L MARILYN a few months ago and returned for another one. Pt had idiopathic avascular necrosis of B hips Subjective Subjective Pt reprots significant pain today Rehab PT IP Eval Objective Appearance Patient Behavior Appropriate,Cooperative Patient Orientation Person,Place,Time,Situation Difficulty following instructions none Speech Pattern Clear,Appropriate Ambulation Patient Able to Ambulate Yes Ambulation Observation IP General Gait Pattern Observation Antalgic Gait Ambulation Distance (feet) 10 Ambulation Assistive Device Axillary Crutches Ambulation Ability Supervision/Stand by,Contact Guard/Hand Hold Balance Ability to Arise Able, uses arms to help Sitting Balance Steady, safe Standing Balance Narrow stance w/o support Dynamic Sitting Balance Ability Good Dynamic Standing Balance Ability Fair Transfers Bed Transfer Ability Supervision/Stand by Chair Transfer Ability Supervision/Stand by Sit to Stand Bed Transfer Ability Supervision/Stand by Sit to Stand Chair Transfer Ability Supervision/Stand by Rehab PT IP prob,goals,plan Problems Date of Evaluation: 03/25/20 PT IP Problems Transfers,Gait,Safety Rehab Potential Rehab Potential Good Equipment Needs Assistive Devices Rolling / Wheeled Walker, Axillary Crutches Plan PT Intervention Plan Transfers,Gait,Therapeutic Exercise PT Plan Frequency BID Duration LOS Discharge Goals Bed Transfer Ability Supervision/Stand by Sit to Stand Chair Transfer Ability Supervision/Stand by Ambulation Assistive Device Rolling Walker,Axillary Crutches Ambulation Distance (feet) 50 Discharge Plan PT Discharge Plan Pt would benefit from skilled therapy, but d/t pt's age and home support and prior progress w/ other MARILYN pt can return home w/ [facility]
--- NOTE | 2020-03-25 09:26 | SW/DCPLANNER ---
Addendum entered by Gracy Vazquez 03/25/20 10:28: Laura with [facility] has called and confirmed patient information has been received and services will begin tomorrow for this patient if he discharges home today. Original Note: I have received referral regarding home health services for this patient. Patient was admitted due to hip surgery. Patient did have other hip surgery this past November and discharged home with [facility] home health and all appropriate DME. I have spoke with this patient this morning and he stated his plan is to return home at time of discharge. Patient prefers to use [facility] at time of discharge. Patient information and order has been faxed to [facility]. Patient stated he has all necessary DME at home. Patient may discharge later today.
--- NOTE | 2020-03-25 09:32 | HMH.CONFU ---
Internal Medicine - PN: Subj *Date: 03/25/20 *Time: 16:02 Interval history: 55-year-old male patient sitting up in chair, dressing to right hip clean dry and intact yesterday a R total hip arthroplasty (MARILYN) was performed he reports he tolerated procedure well. He is complaining of pain at the moment rates it as a 8 out of 10 nurses been notified and she is getting pain medicine. Exam Vital signs and Labs for Last 24 Hours: Temp Pulse Resp BP Pulse Ox 98.0 F 86 17 155/58 H 98 03/25/20 08:00 03/25/20 08:00 03/25/20 08:00 03/25/20 08:00 03/25/20 08:00 Laboratory Results - last 24 hr 03/24/20 09:15: Urine Color Yellow, Urine Appearance Clear, Urine pH 7.0, Ur Specific [place] 1.015, Urine Protein Negative, Urine Glucose (UA) Negative, Urine Ketones Negative, Urine Blood Negative, Urine Nitrate Negative, Urine Bilirubin Negative, Urine Urobilinogen 0.2, Ur Leukocyte Esterase Negative, Urine RBC Occasional, Urine WBC 3-5, Ur Squamous Epith Cells 3-5 03/25/20 06:00: WBC 12.6 H D, RBC 4.45 L, Hgb 14.1, Hct 43.6, MCV 97.9 H, MCH 31.7 H, MCHC 32.4, RDW 14.8, Plt Count 178, MPV 9.4, Neut % (Auto) 75.5, Lymph % (Auto) 17.1, [place] % (Auto) 4.4, Eos % (Auto) 2.7, Baso % (Auto) 0.3, Neut # (Auto) 9.6 H, Lymph # (Auto) 2.2, [place] # (Auto) 0.6, Eos # (Auto) 0.3, Baso # (Auto) 0.0 03/25/20 06:00: Sodium 130 L, Potassium 4.4, Chloride 98, Carbon Dioxide 24, Anion Gap 12.4, BUN 14, Creatinine 0.90, Estimated Creat Clear 123, Estimated GFR 88, Est GFR ( Amer) 106, Glucose 210 H, Calcium 9.1 I & O for Last 24 hours: Intake & Output 03/22/20 03/23/20 03/24/20 03/25/20 23:59 23:59 23:59 23:59 Intake Total 240 / 240 480 / 480 Output Total 400 / 400 400 / 400 Balance -160 / -160 80 / 80 Weight 204 lb 204 lb 0.005 oz - Constitutional no acute distress - *Routine HEENT Exam Head: Present: normocephalic Eye: Present: EOMI ENT: Present: mucous membranes moist - *Routine Neck Exam Present: full ROM, trachea midline. Absent: tracheal deviation - *Routine Respiratory Exam Present: CTA bilaterally. Absent: accessory muscle use - *Routine Cardiovascular Exam Present: RRR, murmur - *Routine Abdominal Exam Present: soft, normoactive bowel sounds. Absent: tenderness, firm - *Routine Extremities Exam Present: full ROM, pulses intact. Absent: cyanosis, clubbing, calf tenderness - *Routine Skin Exam Present: dry, warm, wounds. Absent: cyanosis, erythema Comments: R Hip with Drsg C/D/I - *Routine Neurological Exam Present: alert, oriented X3. Absent: altered mental status - Routine Psychiatric Exam Present: normal affect, normal thought process, cooperative. Absent: auditory hallucinations, visual hallucinations Assessment and Plan (1) Obesity (BMI 30.0-34.9) Status: Acute Category: Medical Code(s): E66.9 - Obesity, unspecified (2) Avascular necrosis of bone of right hip Status: Acute Category: Medical Code(s): M87.051 - Idiopathic aseptic necrosis of right femur (3) Hypertension Status: Acute Qualifiers: Hypertension type: essential hypertension Qualified Code(s): I10 - Essential (primary) hypertension Category: Medical Code(s): I10 - Essential (primary) hypertension (4) CAD (coronary artery disease) Status: Chronic Qualifiers: Coronary Disease-Associated Artery/Lesion type: [place] artery [place] vs. transplanted heart: [place] heart Associated angina: without angina Qualified Code(s): I25.10 - Atherosclerotic heart disease of [place] coronary artery without angina pectoris Category: Medical Code(s): I25.10 - Atherosclerotic heart disease of [place] coronary artery without angina pectoris (5) Smoker Status: Chronic Category: Social Hx Code(s): F17.200 - Nicotine dependence, unspecified, uncomplicated (6) Hyperlipidemia Status: Acute Category: Medical Code(s): E78.5 - Hyperlipidemia, unspecified - Assessment and plan all Dx A
--- NOTE | 2020-03-25 09:32 | HMH.ORTHPN ---
Subjective Date: 03/25/20 Time: 09:00 Principal diagnosis: s/p R MARILYN Interval history: The patient is doing well this morning though he is requiring IV dilaudid for adequate pain control. No fevers or chills reported, no drainage from his dressings, no numbness or tingling in the RLE. PN: Obj Ex Vital signs: Temp Pulse Resp BP Pulse Ox 98.0 F 86 17 155/58 H 98 03/25/20 08:00 03/25/20 08:00 03/25/20 08:00 03/25/20 08:00 03/25/20 08:00 - Constitutional no acute distress - Routine HEENT Exam Head: Present: normocephalic Eye: Present: EOMI ENT: Present: mucous membranes moist - Routine Neck Exam Present: trachea midline - Routine Respiratory Exam Absent: respiratory distress, wheezes - Routine Cardiovascular Exam Present: RRR - Routine Abdominal Exam Present: soft. Absent: tenderness - Routine Extremities Exam Comments: dressings c/d/i R hip, no strikethrough SILT distally RLE in all distributions +DF/PF/EHL RLE R calf soft, non-tender palpable pedal pulses RLE, foot pink/warm - Routine Skin Exam Present: warm - Routine Neurological Exam Present: alert, oriented X3, moving all extremities, normal tone, vision grossly intact, hearing grossly intact, normal speech. Absent: sensory deficit, motor deficit, altered mental status - Routine Psychiatric Exam Present: normal affect - Urinary Catheter Management Coude Cath placed during this visit: yes, but has since been removed by the nurse Urethral indwelling: Yes Insertion date: 03/24/20 Removal date: 03/25/20 Progress Note: A&P (1) Obesity (BMI 30.0-34.9) Status: Acute (2) Avascular necrosis of bone of right hip Status: Acute (3) Hypertension Status: Acute (4) CAD (coronary artery disease) Status: Chronic (5) Smoker Status: Chronic (6) Hyperlipidemia Status: Acute Assessment and Plan for All Diagnoses:: 55yo M POD 1 s/p R MARILYN -- WBAT RLE, posterior hip precautions -- hip abduction pillow while in bed -- PT/OT to continue while admitted -- ice pack R hip as needed -- d/c tovar this morning -- finish 24hr IV prophy antibiotics -- DVT prophy: aspirin to start today; will take ASA 81 BID x6 weeks -- celebrex 200mg BID, lyrica 75mg daily -- SCDs BLE -- encourage IS 10x/hr while awake -- Dr. Monahan on consult for medical management -- care management consult for dispo planning; anticipate d/c home with home health today
--- NOTE | 2020-03-25 10:34 | HMH.OTEV ---
OT Inpatient Evaluation Rehab OT IP Evaluation Start: 03/24/20 12:56 Freq: ONCE Status: Complete Protocol: Document 03/25/20 10:17 ARSELLENTON (Rec: 03/25/20 10:33 [facility] [id number]) Rehab OT IP Assessment Subjective History Pt was oriented X3 upon arrival. Pt is a 55 yo male s/ p R MARILYN. MARILYN was planned due to increased pain after L MARILYN. Pt has a hx CHF, CAD GERD, heart murmur, hyperlipidemia, HTN, and MN. Pt reports that prior to surgery he was able to complete all ADLs and IADLs independtly. Pt's was present for eval. Subjective This one hurts more than the other one. Objective Patient Orientation Person,Place,Birthday Upper Extremity Gross ROM WNL Bed Mobility bed mobility-scooting,bed mobility - supine/sit,bed mobility - rolling Assist Level Minimal x 1 (25% assist) Transfer Training Sit/Stand Transfer Assist Level Contact Guard/Hand Hold Chair Transfer Ability Contact Guard/Hand Hold Chair Transfer Technique Sit to/from Ambulatory Chair Transfer Assistive Devices Standard Walker Rehab OT IP prob,goals,plan Problems Date of Evaluation: 03/25/20 OT IP Problems Bed Mobility,Transfers,Gait, Balance,Self care,Safety Rehab Potential Rehab Potential Good Equipment Needs Assistive Devices Standard Walker Plan OT intervention Plan Bed Mobility,Transfers,Gait, Balance,Self care,Safety, Therapeutic Exercise OT Plan Frequency Daily Duration LOS Discharge Goals Bed Mobility Ability Independent Sit to Stand Chair Transfer Ability Supervision/Stand by Chair Transfer Ability Supervision/Stand by Chair Transfer Technique Sit to/from Ambulatory Chair Transfer Assistive Devices Standard Walker Self care skills fully toilet trained,dressing/ undressing independently,uses utensils to feed self Feeding Ability Independent Lower Body Dressing Ability Assistance X1 Upper Body Dressing Ability Standby Assistance Bathing Ability Assistance x1 Performing Toilet Hygiene Ability Standby Assistance Overall Commode/Toilet Transfer Ability Standby Assistance Commode/Toilet Transfer Techni
--- NOTE | 2020-03-25 12:14 | HMH.DCSUM ---
General - General Admission date:: 03/24/20 Discharge date: 03/25/20 HPI HPI: 55yo M with AVN of bilateral hips, s/p L MARILYN 12/03/19. He did well after this surgery but has had progressive pain in the right hip with continued collapse of the femoral head. He continues to require the use of crutches and/or a cane for ambulation. He wished to proceed with R MARILYN. No change in his medical history since the L MARILYN, no new chest pain or shortness of breath. He does have a history of chronic smoking and alcohol use, though he says the alcohol is limited to a few times per week. He does smoke 1 pack of cigarettes daily. No reported steroid use or chemotherapy/radiation. No known personal or family history of sickle cell disease. I discussed the risks and benefits of the surgery at length, in addition to the expected perioperative course, hospital stay and need for postoperative physical therapy. We also discussed the risks of surgery, which include but are not limited to: bleeding, infection, intraoperative fracture, neurovascular damage including postoperative foot drop, periprosthetic fracture postoperatively, postoperative hip dislocation, need for possible revision surgery in the future, wound healing complications due to his status is a smoker, and the possibility of continued pain and/or disability despite surgery. The patient vocalized understanding and informed consent was obtained. Pre-operative labs were with normal limits. MRSA nasal swab could not be obtained within the necessary time frame prior to surgery so Bactroban was prescribed and used empirically; the patient used this intranasally BID x5 days. He has also held his aspirin for the past week. Pre-operative covid antibody testing was negative. The patient underwent R MARILYN this morning without complication. EBL was 200cc, with 2L crystalloid and 400cc UOP. Received 2g Ancef IV and 2 doses of TXA. Hospital Course Hospital Course: The patient did well during his admission and there were no medical complications. Ferrell was removed on postoperative day 1. Pain medication was available PRN. He worked with physical therapy 2 times daily and by postoperative day 1 was walking in the room. His pain was well-controlled on oral medication and there were no issues pending discharge. Home health physical therapy was arranged. He was seen by his primary care who did not see any medical issues that needed to be addressed. He completed 24 hours of prophylactic antibiotics. Aspirin was started on postoperative day 1 for DVT prophylaxis and SCDs were worn throughout the stay. Incentive spirometer was encouraged and used during his stay. Objective Vital signs: Temp Pulse Resp BP Pulse Ox 98.0 F 86 17 155/58 H 98 03/25/20 08:00 03/25/20 08:00 03/25/20 08:00 03/25/20 08:00 03/25/20 08:00 no acute distress - *Routine HEENT Exam Head: Present: normocephalic Eye: Present: EOMI ENT: Present: mucous membranes moist - *Routine Neck Exam Present: trachea midline - *Routine Respiratory Exam Absent: respiratory distress, wheezes - *Routine Cardiovascular Exam Present: RRR - *Routine Abdominal Exam Present: soft. Absent: tenderness - *Routine Extremities Exam Comments: hip abduction pillow in place R hip dressing c/d/i w/o strikethrough +DF/PF/EHL RLE SILT distally RLE in all distributions R calf soft, non-tender palpable pedal pulses RLE, foot pink/warm - *Routine Skin Exam Present: warm - *Routine Neurological Exam Present: alert, oriented X3, moving all extremities, normal tone, vision grossly intact, hearing grossly intact, normal speech. Absent: sensory deficit, motor deficit, altered mental status Results Labs on day of discharge: Labs from last 24 hours 03/25/20 03/25/20 03/24/20 06:00 06:00 09:15 WBC 12.6 H D RBC 4.45 L Hgb 14.1 Hct 43.6 MCV 97.9 H MCH 31.7 H MCHC 32.4 RDW 14.8 Plt Count 178 MPV
--- NOTE | 2020-03-25 12:16 | HMH.PHAVTE ---
[facility] Pharmacy VTE Monitoring - Patient Demographics Admission date: 03/24/20 Report Date: 03/25/20 Time: 12:16 Allergies/Adverse Reactions: Patient Allergies acetaminophen [From Percocet] Adverse Reaction (Verified 03/10/20 10:51) oxycodone [From Percocet] Adverse Reaction (Verified 03/10/20 10:51) Height: 1.75 m Weight: 92.533 kg Patient Problems: Current Active Problems (Last Updated 11/13/18 @ 09:11 by Tisha Sheets RN) Hypertension (Acute) Obesity (BMI 30.0-34.9) (Acute) Hyperlipidemia (Acute) Avascular necrosis of bone of right hip (Acute) Smoker (Chronic) CAD (coronary artery disease) (Chronic) - VTE Risk Labs: VTE Related Lab Results Hgb 14.1 g/dL (14.1-18.0) 03/25/20 06:00 Hct 43.6 % (42.0-52.0) 03/25/20 06:00 Plt Count 178 K/mm3 (142-424) 03/25/20 06:00 BUN 14 mg/dl (9-20) 03/25/20 06:00 Creatinine 0.90 mg/dl (0.66-1.25) 03/25/20 06:00 Estimated Creat Clear 123 mL/min (50-200) 03/25/20 06:00 Was VTE Risk Assessment Performed: Yes VTE Risk Level: Moderate Risk - Prophylaxis VTE Prophylaxis Ordered?: Yes Types of VTE Prophylaxis: IPCS Thigh High Location of Applied Device: Left Leg
== END 2020-03-25 14:30 | disposition home health service (06) | DRG 470 ==
PROVIDERS: Admitting Provider Orthopaedic Surgery; PCP Nurse Practitioner Family; Visit Provider Orthopaedic Surgery
PROC: 0SR904A Replacement of Right Hip Joint with Ceramic on Polyethylene Synthetic Substitute, Uncemented, Open Approach (ICD-10-PCS; CPT 27130; principal; 2020-03-24 09:00)
DX: M87.051 Idiopathic aseptic necrosis of right femur (principal); M25.551 Pain in right hip; Z72.0 Tobacco use; I11.0 Hypertensive heart disease with heart failure; I50.9 Heart failure, unspecified; I25.10 Atherosclerotic heart disease of native coronary artery without angina pectoris; I25.2 Old myocardial infarction; Z95.5 Presence of coronary angioplasty implant and graft; E78.5 Hyperlipidemia, unspecified; Z88.8 Allergy status to other drugs, medicaments and biological substances; Z79.899 Other long term (current) drug therapy; M89.751 Major osseous defect, right pelvic region and thigh
CPT/HCPCS: 27130; 36415; 73502; 80048; 81001; 85007; 85014; 85018; 85025; 85048; 85049; 86328; 86850; 96374; 97116; 97161; 97166; 97530; C1713; C1776

== ENCOUNTER 2020-03-30 09:32 | Emergency (ER) | payer OTHER, SELFPAY ==
[2020-03-30 09:45] VITALS: BP 144/77; PULSE 85; RESP 18; TEMP 37; O2SAT 97; BMI 30.1
--- NOTE | 2020-03-30 09:56 | HMH.EDURI ---
ED Disposition Clinical Impression: Post-nasal drainage Upper respiratory infection Qualifiers: URI type: unspecified viral URI Qualified Code(s): J06.9 - Acute upper respiratory infection, unspecified Disposition: Home, Self-Care Condition on Discharge: Good Instructions: DI for Nasal Congestion Prescriptions: lidocaine HCL [Lidocaine viscous 100mL bottle] 10 ml PO BID #100 solution Transmission Status: Pending to [facility] Referrals: Susan Crum APRN [Primary Care Provider] - Brandon Hagen MD [Staff Physician] - - Critical Care Critical Care Time: No Attestation: On , the high probability of a clinically significant, sudden or life threatening deterioration of the following system(s) required my full and direct attention, intervention and personal management. The time I documented below is in addition to time spent performing reported procedures but includes the following listed in this critical care notation. Medical Decision Making - Medical Records Medical records reviewed: Yes: I reviewed the patient's medical records. - Lopez Inquiry Pt receiving controlled substance: No Vital Signs: 03/30/20 09:45 Temperature 98.6 F Temperature Source Oral Pulse Rate [Right Radial] 85 Respiratory Rate 18 Blood Pressure [Right Arm] 144/77 H Blood Pressure Mean [Right Arm] 99 Blood Pressure Source [Right Arm] Automatic Cuff Blood Pressure Position [Right Arm] Sitting 02 Sat by Pulse Oximetry 97 Oxygen Delivery Method Room Air Orders (Tests/Meds): ED MEDICATIONS Discontinued Medications Generic Name Dose Route Start Last Admin Trade Name Freq PRN Reason Stop Dose Admin Diphenhydramine HCl 25 mg 03/30/20 09:54 03/30/20 10:10 Diphenhydramine 25mg Capsule PO 03/30/20 09:55 25 mg ONCE ONE Administration Lidocaine HCl 15 ml 03/30/20 09:54 03/30/20 10:10 Lidocaine 2% Viscous Neisha 15ml Udc PO 03/30/20 09:55 15 ml ONCE ONE Administration - Reevaluation(s) Time: 10:45 Reevaluation #1: On reevaluation, the patient is feeling much better. He states that the solution is actually significantly helped. He is swallowing much better. Patient be discharged with a short course of lidocaine. I do believe he will benefit from evaluation by ear nose and throat. He will likely need scope to evaluate the anatomy. Patient given strict return precautions. Verbalized understanding. Medical Decision Narrative: 55-year-old male presented to the emergency department with sore throat nasal congestion. I do believe the patient is displaying symptoms consistent with postnasal drip. There is no evidence of airway obstruction or angioedema. I do believe the patient's recent surgery likely complicated his symptoms. Patient be treated symptomatically and reevaluated. URI/Sore Throat HPI - General Chief Complaint: Upper Respiratory Infection Stated Complaint: dry mounth, hard to swallow Time Seen by Provider: 03/30/20 09:50 Mode of Arrival: Ambulatory Limitations: No Limitations Description of Symptoms (Recalled from ER Triage Doc. by RN): Pt reports has had dry mouth for approx 1 month, states has also had sinus drainage, states feels like it is choking him. Pt denies fevers, SOA, or cough. - History of Present Illness HPI Narrative: This is a 55-year-old male presented to the emergency department with nasal congestion and sore throat. The patient states that he frequently has issues with allergies, however it is gotten worse over the last few days. The patient states that he had hip surgery last week and since then he has been having some nasal congestion is going down the back of his throat. He feels like the mucus is getting stuck in the back of his throat making it difficult to swallow. He does not actually have any pain with swallowing. Denies any fevers or chills. He is not having any chest pain or shortness of breath. No abdominal pain or vomiting. Denies any he
[2020-03-30 11:04] VITALS: BP 151/69; PULSE 85; RESP 18; TEMP 37; O2SAT 97
== END 2020-03-30 11:04 | disposition home or self-care (01) ==
PROVIDERS: Emergency Provider Nurse Practitioner; PCP Nurse Practitioner Family
DX: J06.9 Acute upper respiratory infection, unspecified (principal); I25.10 Atherosclerotic heart disease of native coronary artery without angina pectoris; K21.9 Gastro-esophageal reflux disease without esophagitis; E78.5 Hyperlipidemia, unspecified; I10 Essential (primary) hypertension; I25.2 Old myocardial infarction; Z79.899 Other long term (current) drug therapy
CPT/HCPCS: 99281

== ENCOUNTER → 2020-04-08 17:03 | Outpatient (CLI) | payer OTHER, SELFPAY | PROVIDERS: Visit Provider Nurse Practitioner Family | DX: L02.31 Cutaneous abscess of buttock (principal) | CPT/HCPCS: 87070; 87077; 87186; 87205 ==

== ENCOUNTER → 2020-04-10 09:17 | Outpatient (CLI) | payer OTHER, SELFPAY ==
--- NOTE | 2020-04-10 09:20 | XR_ITS ---
PROCEDURE: XR HIP RT 2-3V W/PELVIS CLINICAL INDICATION: s/p RT MARILYN Follow-up hip replacement COMPARISON: CR XR HIP RT 2-3V W/PELVIS from 03/24/2020 FINDINGS: Status post total right hip replacement. There are 2 acetabular screws 1 which projects medial to the iliopectineal line as before. There is good alignment. Soft tissue gas has resolved. Incidental note is made of a few air-fluid levels within the right lower quadrant of the abdomen. There is a total left hip prosthesis as well in place with good alignment. IMPRESSION: Status post total right hip replacement as described above with good alignment Dictated by: Ede Herrera MD 04/10/2020 11:32 Ede Herrera MD in [place] 04/10/2020 11:32
== END ==
PROVIDERS: PCP Nurse Practitioner Family; Visit Provider Orthopaedic Surgery
DX: M25.551 Pain in right hip (principal); Z96.641 Presence of right artificial hip joint
CPT/HCPCS: 73502

== ENCOUNTER 2020-04-11 10:20 | Outpatient (CLI) | payer OTHER, SELFPAY ==
[2020-04-11 10:50] VITALS: BP 141/68; PULSE 72; RESP 20; TEMP 36.7; O2SAT 98
--- NOTE | 2020-04-11 11:08 | PC.NURSE ---
pt arrived at 1020 in room 201. patient in mask and nurse in ppe r/t no covid testing. denies any s/s of covid or exposure. 1050 old 4x4 and tape removed. with packing. serosang drainage on packing noted. put 1/4 plain gauze back into wound on left buttock. covered with 4x4 and tape. pt tolerated very well. to return tomorrow 1100 patient left unit.
== END 2020-04-11 11:00 | disposition home or self-care (01) ==
LOC: INF 10:21
PROVIDERS: Visit Provider Surgery
DX: L02.31 Cutaneous abscess of buttock (principal); Z48.01 Encounter for change or removal of surgical wound dressing
CPT/HCPCS: G0463

== ENCOUNTER → 2020-04-12 10:04 | Outpatient (CLI) | payer OTHER, SELFPAY ==
[2020-04-12 10:15] VITALS: BP 146/103; PULSE 75; RESP 20; TEMP 36.7; O2SAT 95
--- NOTE | 2020-04-12 10:15 | PC.NURSE ---
patient arrived at 1015- poc explained and patient v/u. patient using a rolling walker to walk. patient remains in a mask per covnc 19 policy. denies any s/s or exposure. bp elevated today, patient reports he is in pain from his abscess. 1020 dressing removed at this time and packing removed. Small serosang drainage noted. new gauze packed into left buttock wound and 4x4 applied. taped and secured. patient tolerated well. 1030 pt. left and no distress was noted.
== END ==
PROVIDERS: PCP Nurse Practitioner Family; Visit Provider Surgery
DX: L02.31 Cutaneous abscess of buttock (principal); Z48.01 Encounter for change or removal of surgical wound dressing
CPT/HCPCS: G0463

== ENCOUNTER 2020-04-13 10:54 | Outpatient (CLI) | payer OTHER, SELFPAY | END 2020-04-13 11:10 | disposition home or self-care (01) | LOC: INF 10:54 | PROVIDERS: Visit Provider Surgery | DX: L02.31 Cutaneous abscess of buttock (principal); Z48.01 Encounter for change or removal of surgical wound dressing | CPT/HCPCS: G0463 ==

== ENCOUNTER 2020-04-14 09:04 | Outpatient (CLI) | payer OTHER, SELFPAY | END 2020-04-14 09:10 | disposition home or self-care (01) | LOC: INF 09:04 | PROVIDERS: Visit Provider Surgery | DX: L02.31 Cutaneous abscess of buttock (principal); Z48.01 Encounter for change or removal of surgical wound dressing | CPT/HCPCS: G0463 ==

== ENCOUNTER 2020-04-15 08:44 | Outpatient (CLI) | payer OTHER, SELFPAY | END 2020-04-15 08:55 | disposition home or self-care (01) | LOC: INF 08:44 | PROVIDERS: Visit Provider Surgery | DX: L02.31 Cutaneous abscess of buttock (principal); Z48.01 Encounter for change or removal of surgical wound dressing | CPT/HCPCS: G0463 ==

== ENCOUNTER 2020-04-16 09:10 | Outpatient (CLI) | payer OTHER, SELFPAY ==
--- NOTE | 2020-04-16 09:30 | PC.NURSE ---
0411-called md office and spoke to sandip about pt wound having white puss come out wound and surrounding wound area is hard. pt to see md tomorrow for appointment
== END 2020-04-16 09:20 | disposition home or self-care (01) ==
LOC: INF 09:10
PROVIDERS: Visit Provider Surgery
DX: L02.31 Cutaneous abscess of buttock (principal); Z48.01 Encounter for change or removal of surgical wound dressing
CPT/HCPCS: G0463

== ENCOUNTER → 2020-04-18 09:24 | Outpatient (CLI) | payer OTHER, SELFPAY ==
[2020-04-18 09:24] VITALS: BP 131/68; PULSE 83; RESP 16; TEMP 36.7; O2SAT 98
== END ==
PROVIDERS: PCP Nurse Practitioner Family; Visit Provider Surgery
DX: L02.31 Cutaneous abscess of buttock (principal); Z48.01 Encounter for change or removal of surgical wound dressing
CPT/HCPCS: G0463

== ENCOUNTER → 2020-04-19 09:28 | Outpatient (CLI) | payer OTHER, SELFPAY | PROVIDERS: PCP Nurse Practitioner Family; Visit Provider Surgery | DX: L02.31 Cutaneous abscess of buttock (principal); Z48.01 Encounter for change or removal of surgical wound dressing | CPT/HCPCS: G0463 ==

== ENCOUNTER 2020-04-20 09:12 | Outpatient (CLI) | payer OTHER, SELFPAY ==
--- NOTE | 2020-04-20 10:12 | PC.NURSE ---
1012-notified that pt wound had thick purulent drainage coming from wound; states that is ok just pack it tighter.
== END 2020-04-20 09:25 | disposition home or self-care (01) ==
LOC: INF 09:12
PROVIDERS: PCP Nurse Practitioner Family; Visit Provider Surgery
DX: L02.31 Cutaneous abscess of buttock (principal); Z48.01 Encounter for change or removal of surgical wound dressing
CPT/HCPCS: G0463

== ENCOUNTER 2020-04-21 10:22 | Outpatient (CLI) | payer OTHER, SELFPAY | END 2020-04-21 10:35 | disposition home or self-care (01) | LOC: INF 10:22 | PROVIDERS: Visit Provider Surgery | DX: L02.31 Cutaneous abscess of buttock (principal); Z48.01 Encounter for change or removal of surgical wound dressing | CPT/HCPCS: G0463 ==

== ENCOUNTER 2020-04-22 09:07 | Outpatient (CLI) | payer OTHER, SELFPAY | END 2020-04-22 09:20 | disposition home or self-care (01) | LOC: INF 09:07 | PROVIDERS: Visit Provider Surgery | DX: L02.31 Cutaneous abscess of buttock (principal); Z48.01 Encounter for change or removal of surgical wound dressing | CPT/HCPCS: G0463 ==

== ENCOUNTER 2020-04-24 09:10 | Outpatient (CLI) | payer OTHER, SELFPAY | END 2020-04-24 09:25 | disposition home or self-care (01) | LOC: INF 09:10 | PROVIDERS: Visit Provider Surgery | DX: L02.31 Cutaneous abscess of buttock (principal); Z48.01 Encounter for change or removal of surgical wound dressing | CPT/HCPCS: G0463 ==

== ENCOUNTER 2020-04-25 08:59 | Outpatient (CLI) | payer OTHER, SELFPAY ==
[2020-04-25 09:26] VITALS: BP 119/60; PULSE 79; RESP 19; TEMP 36.9; O2SAT 96
== END 2020-04-25 09:32 | disposition home or self-care (01) ==
LOC: INF 09:00
PROVIDERS: PCP Nurse Practitioner Family; Visit Provider Surgery
DX: L02.31 Cutaneous abscess of buttock (principal); Z48.01 Encounter for change or removal of surgical wound dressing
CPT/HCPCS: G0463

== ENCOUNTER 2020-04-27 09:00 | Outpatient (CLI) | payer OTHER, SELFPAY | END 2020-04-27 09:20 | disposition home or self-care (01) | LOC: INF 09:00 | PROVIDERS: Visit Provider Surgery | DX: L02.31 Cutaneous abscess of buttock (principal); Z48.01 Encounter for change or removal of surgical wound dressing | CPT/HCPCS: G0463 ==

== ENCOUNTER 2020-04-29 09:28 | Outpatient (CLI) | payer OTHER, SELFPAY | END 2020-04-29 09:40 | disposition home or self-care (01) | LOC: INF 09:28 | PROVIDERS: Visit Provider Surgery | DX: L02.31 Cutaneous abscess of buttock (principal); Z48.01 Encounter for change or removal of surgical wound dressing | CPT/HCPCS: G0463 ==

== ENCOUNTER 2020-04-30 08:55 | Outpatient (CLI) | payer OTHER, SELFPAY | END 2020-04-30 09:15 | disposition home or self-care (01) | LOC: INF 09:00 | PROVIDERS: Visit Provider Surgery | DX: L02.31 Cutaneous abscess of buttock (principal); Z48.01 Encounter for change or removal of surgical wound dressing | CPT/HCPCS: G0463 ==

== ENCOUNTER 2020-05-01 14:30 | Outpatient (CLI) | payer OTHER, SELFPAY | END 2020-05-01 14:40 | disposition home or self-care (01) | LOC: INF 15:27 | PROVIDERS: Visit Provider Surgery | DX: L02.31 Cutaneous abscess of buttock (principal); Z48.01 Encounter for change or removal of surgical wound dressing | CPT/HCPCS: G0463 ==

== ENCOUNTER 2020-05-02 09:15 | Outpatient (CLI) | payer OTHER, SELFPAY ==
[2020-05-02 09:28] VITALS: BP 152/72; PULSE 69; RESP 20; O2SAT 97
== END 2020-05-02 09:43 | disposition home or self-care (01) ==
LOC: INF 09:15
PROVIDERS: PCP Nurse Practitioner Family; Visit Provider Surgery
DX: L02.31 Cutaneous abscess of buttock (principal); Z48.01 Encounter for change or removal of surgical wound dressing
CPT/HCPCS: G0463

== ENCOUNTER 2020-05-03 09:14 | Outpatient (CLI) | payer OTHER, SELFPAY ==
[2020-05-03 09:14] VITALS: BP 147/83; PULSE 70; RESP 20; O2SAT 97
== END 2020-05-03 09:25 | disposition home or self-care (01) ==
LOC: INF 09:14
PROVIDERS: PCP Nurse Practitioner Family; Visit Provider Surgery
DX: L02.31 Cutaneous abscess of buttock (principal); Z48.01 Encounter for change or removal of surgical wound dressing
CPT/HCPCS: G0463

== ENCOUNTER 2020-05-04 08:51 | Outpatient (CLI) | payer OTHER, SELFPAY | END 2020-05-04 09:00 | disposition home or self-care (01) | LOC: INF 08:51 | PROVIDERS: Visit Provider Surgery | DX: L02.31 Cutaneous abscess of buttock (principal); Z48.01 Encounter for change or removal of surgical wound dressing | CPT/HCPCS: G0463 ==

== ENCOUNTER 2020-05-05 10:38 | Outpatient (CLI) | payer OTHER, SELFPAY | END 2020-05-05 10:49 | disposition home or self-care (01) | LOC: INF 10:38 | PROVIDERS: Visit Provider Surgery | DX: L02.31 Cutaneous abscess of buttock (principal); Z48.01 Encounter for change or removal of surgical wound dressing | CPT/HCPCS: G0463 ==

== ENCOUNTER 2020-05-06 08:45 | Outpatient (CLI) | payer OTHER, SELFPAY | END 2020-05-06 08:54 | disposition home or self-care (01) | LOC: INF 08:54 | PROVIDERS: Visit Provider Surgery | DX: L02.31 Cutaneous abscess of buttock (principal); Z48.01 Encounter for change or removal of surgical wound dressing | CPT/HCPCS: G0463 ==

== ENCOUNTER 2020-05-07 08:41 | Outpatient (CLI) | payer OTHER, SELFPAY | END 2020-05-07 08:54 | disposition home or self-care (01) | LOC: INF 08:41 | PROVIDERS: Visit Provider Surgery | DX: L02.31 Cutaneous abscess of buttock (principal); Z48.01 Encounter for change or removal of surgical wound dressing | CPT/HCPCS: G0463 ==

== ENCOUNTER 2020-05-08 09:51 | Outpatient (CLI) | payer OTHER, SELFPAY | END 2020-05-08 10:08 | disposition home or self-care (01) | LOC: INF 09:51 | PROVIDERS: Visit Provider Surgery | DX: L02.31 Cutaneous abscess of buttock (principal); Z48.01 Encounter for change or removal of surgical wound dressing | CPT/HCPCS: G0463 ==

== ENCOUNTER → 2020-05-09 09:13 | Outpatient (CLI) | payer OTHER, SELFPAY ==
[2020-05-09 09:13] VITALS: BP 164/73; PULSE 77; RESP 16; TEMP 36.7; O2SAT 98
[2020-05-09 09:27] VITALS: BP 164/73; PULSE 76; RESP 16; TEMP 36.7; O2SAT 97
== END ==
PROVIDERS: PCP Nurse Practitioner Family; Visit Provider Surgery
DX: L02.31 Cutaneous abscess of buttock (principal); Z48.01 Encounter for change or removal of surgical wound dressing
CPT/HCPCS: G0463

== ENCOUNTER 2020-05-11 11:54 | Outpatient (CLI) | payer OTHER, SELFPAY | END 2020-05-11 12:05 | disposition home or self-care (01) | LOC: INF 11:54 → RAD 12:23 → INF 12:24 | PROVIDERS: PCP Nurse Practitioner Family; Visit Provider Surgery | DX: L02.31 Cutaneous abscess of buttock (principal); Z48.01 Encounter for change or removal of surgical wound dressing | CPT/HCPCS: G0463 ==

== ENCOUNTER → 2020-05-11 13:01 | Outpatient (CLI) | payer OTHER, SELFPAY ==
--- NOTE | 2020-05-11 13:06 | XR_ITS ---
PROCEDURE: XR HIP LT 2-3V W/PELVIS CLINICAL INDICATION: s/p MARILYN Follow-up hip replacement COMPARISON: CR XR HIP LT 2-3V W/PELVIS from 03/02/2020 CR XR HIP RT 2-3V W/PELVIS from 03/24/2020 CR XR HIP RT 2-3V W/PELVIS from 04/10/2020 CR XR HIP RT 2-3V W/PELVIS from 05/11/2020 FINDINGS: Left hip: Status post total left hip arthroplasty with good alignment. No evidence of prosthesis malfunction. There is minimal heterotopic ossification along the lesser trochanter as before. Right hip: Post total right hip arthroplasty. Good alignment with no evidence of orthopedic complication. IMPRESSION: Status post bilateral hip replacement with good alignment. No change minimal heterotopic ossification left lesser trochanter region. Dictated by: Ede Herrera MD 05/11/2020 14:39 Ede Herrera MD in [place] 05/11/2020 14:41
== END ==
PROVIDERS: PCP Nurse Practitioner Family; Visit Provider Orthopaedic Surgery
DX: M25.551 Pain in right hip (principal); Z96.641 Presence of right artificial hip joint; M25.552 Pain in left hip; Z96.652 Presence of left artificial knee joint
CPT/HCPCS: 73502

== ENCOUNTER 2020-05-12 09:17 | Outpatient (CLI) | payer OTHER, SELFPAY | END 2020-05-12 09:25 | disposition home or self-care (01) | LOC: INF 09:17 | PROVIDERS: Visit Provider Surgery | DX: L02.31 Cutaneous abscess of buttock (principal); Z48.01 Encounter for change or removal of surgical wound dressing | CPT/HCPCS: G0463 ==

== ENCOUNTER 2020-05-14 09:09 | Outpatient (CLI) | payer OTHER, SELFPAY | END 2020-05-14 09:20 | disposition home or self-care (01) | LOC: INF 09:09 | PROVIDERS: Visit Provider Surgery | DX: L02.31 Cutaneous abscess of buttock (principal); Z48.01 Encounter for change or removal of surgical wound dressing | CPT/HCPCS: G0463 ==

== ENCOUNTER 2020-05-15 09:33 | Outpatient (CLI) | payer OTHER, SELFPAY | END 2020-05-15 09:40 | disposition home or self-care (01) | LOC: INF 09:33 | PROVIDERS: Visit Provider Surgery | DX: L02.31 Cutaneous abscess of buttock (principal); Z48.01 Encounter for change or removal of surgical wound dressing | CPT/HCPCS: G0463 ==

== ENCOUNTER → 2020-05-17 08:48 | Outpatient (CLI) | payer OTHER, SELFPAY ==
[2020-05-17 08:50] VITALS: BP 132/82; PULSE 71; RESP 18; TEMP 36.4; O2SAT 96
== END ==
PROVIDERS: PCP Nurse Practitioner Family; Visit Provider Surgery
DX: L02.31 Cutaneous abscess of buttock (principal); Z48.01 Encounter for change or removal of surgical wound dressing
CPT/HCPCS: G0463

== ENCOUNTER 2020-05-18 10:45 | Outpatient (CLI) | payer OTHER, SELFPAY | END 2020-05-18 10:55 | disposition home or self-care (01) | LOC: INF 11:14 | PROVIDERS: Visit Provider Surgery | DX: L02.31 Cutaneous abscess of buttock (principal); Z48.01 Encounter for change or removal of surgical wound dressing | CPT/HCPCS: G0463 ==

== ENCOUNTER 2020-05-19 08:50 | Outpatient (CLI) | payer OTHER, SELFPAY | END 2020-05-19 09:00 | disposition home or self-care (01) | LOC: INF 09:02 | PROVIDERS: Visit Provider Surgery | DX: L02.31 Cutaneous abscess of buttock (principal); Z48.01 Encounter for change or removal of surgical wound dressing | CPT/HCPCS: G0463 ==

== ENCOUNTER → 2020-05-21 08:32 | Outpatient (CLI) | payer OTHER, SELFPAY | END | disposition home or self-care (01) | LOC: INF 08:32 | PROVIDERS: Visit Provider Surgery | DX: L02.31 Cutaneous abscess of buttock (principal); Z48.01 Encounter for change or removal of surgical wound dressing | CPT/HCPCS: G0463 ==

== ENCOUNTER 2020-05-22 09:00 | Outpatient (CLI) | payer OTHER, SELFPAY | END 2020-05-22 09:10 | disposition home or self-care (01) | LOC: INF 09:00 | PROVIDERS: Visit Provider Surgery | DX: L02.31 Cutaneous abscess of buttock (principal); Z48.01 Encounter for change or removal of surgical wound dressing | CPT/HCPCS: G0463 ==

== ENCOUNTER 2020-05-24 10:31 | Emergency (ER) | payer OTHER, SELFPAY ==
[2020-05-24 10:38] VITALS: BP 144/109; PULSE 78; RESP 15; TEMP 36.9; O2SAT 100; BMI 30.1
--- NOTE | 2020-05-24 10:39 | HMH.EDGENADL ---
ED Disposition Clinical Impression: Back pain with sciatica Disposition: Home, Self-Care Condition on Discharge: Good Instructions: DI for Back Pain With Sciatica Additional Instructions: Prednisone as prescribed. [place] as needed for pain. Follow-up with your primary care provider tomorrow. Additional instructions for BACK PAIN: See your physician as soon as possible for further evaluation. Return immediately if back pain becomes intolerable, or if fever, numbness or weakness of your legs, loss of control of your bowels or bladder. Additional instructions for CONTROLLED SUBSTANCES: You have been prescribed a medication that is a controlled substance. Controlled substances include pain medications known as opiates and sedative nerve medications known as benzodiazepines. Tramadol, fioricet, and gabapentin are also controlled substances. Some common opiates include: Codeine (such as Tylenol #3) Hydrocodone (Vicodin, Lortab, Lorcet, [place]) Oxycodone (Percocet, Percodan, Oxycodone, Oxy IR) Some common benzodiazepines include: Diazepam (Valium) Lorazepam (Ativan) Alprazolam (Xanax) Clonazepam (Klonopin) Oxazepam (Serax) All of these controlled substances are highly addictive and frequently abused. Misuse can and frequently does lead to addiction as well as overdose and . Medication should be stored in a locked cabinet or other secure storage unit. Do not store the medication in a motor vehicle. Short term supplies, 3 days or less, are prescribed because of the highly addictive nature of the medication. Any of the controlled substance medication NOT taken should be disposed of properly and NOT SAVED. The recommended method of disposing of unused medications is: Place the medicines in a sealable plastic bag. If the medicine is a solid, crush it or add water to dissolve it. Add something undesirable (cat litter, coffee grounds, etc.) Dispose of sealed bag in household trash Do not flush or pour unused medicines down a sink or drain. Controlled substances should not be shared, given away or sold. Because of the addictive nature and frequent abuse, these medications are sometimes stolen. These medications should be kept in a safe place where they cannot be stolen. Do not keep them in your car or purse. Lost or stolen prescriptions for controlled substances WILL NOT BE REFILLED in this emergency department, regardless of whether a police report was filed. Prescriptions: Hydrocod/Acet 5/325 mg [[place] 5/325mg tablet] 1 tab PO Q6HP PRN #10 tab PRN Reason: Pain Transmission Status: Sent to [facility] predniSONE [Prednisone 20mg Tab] 20 mg PO BID #10 tab Transmission Status: Pending to [facility] Referrals: Susan Crum APRN [Primary Care Provider] - - Critical Care Critical Care Time: No Attestation: On 05/24/20, the high probability of a clinically significant, sudden or life threatening deterioration of the following system(s) required my full and direct attention, intervention and personal management. The time I documented below is in addition to time spent performing reported procedures but includes the following listed in this critical care notation. Medical Decision Making - Lopez Inquiry Pt receiving controlled substance: Yes Lopez was queried for this patient: Yes Risks and benefits of using a controlled substance: were discussed with pt by me Vital Signs: 05/24/20 10:38 Temperature 98.5 F Temperature Source Oral Pulse Rate [Right] 78 Respiratory Rate 15 Blood Pressure [Right Arm] 144/109 H Blood Pressure Mean [Right Arm] 120 Blood Pressure Source [Right Arm] Automatic Cuff Blood Pressure Position [Right Arm] Sitting 02 Sat by Pulse Oximetry 100 Oxygen Delivery Method Room Air General Adult HPI - General Stated complaint: Back pain Time Seen by Provider: 05/24/20 10:39 - History of Present Illness HPI narrative: Jose Raul
[2020-05-24 10:55] VITALS: BP 149/73; PULSE 69; RESP 18; O2SAT 100
[2020-05-24 10:57] VITALS: BP 149/73; PULSE 77; RESP 15; TEMP 36.6
== END 2020-05-24 10:59 | disposition home or self-care (01) ==
PROVIDERS: Emergency Provider Emergency Medicine; PCP Nurse Practitioner Family
DX: M54.41 Lumbago with sciatica, right side (principal); Z96.641 Presence of right artificial hip joint; I10 Essential (primary) hypertension; E78.5 Hyperlipidemia, unspecified; I25.2 Old myocardial infarction; I25.10 Atherosclerotic heart disease of native coronary artery without angina pectoris; K21.9 Gastro-esophageal reflux disease without esophagitis; R01.1 Cardiac murmur, unspecified; F17.210 Nicotine dependence, cigarettes, uncomplicated; Z88.5 Allergy status to narcotic agent; Z79.899 Other long term (current) drug therapy
CPT/HCPCS: 96372; 99282

== ENCOUNTER → 2020-05-24 11:06 | Outpatient (CLI) | payer OTHER, SELFPAY | PROVIDERS: PCP Nurse Practitioner Family; Visit Provider Surgery | DX: L02.31 Cutaneous abscess of buttock (principal); Z48.01 Encounter for change or removal of surgical wound dressing | CPT/HCPCS: G0463 ==

== ENCOUNTER 2020-05-25 08:10 | Outpatient (CLI) | payer OTHER, SELFPAY | END 2020-05-25 08:20 | disposition home or self-care (01) | LOC: INF 08:34 | PROVIDERS: Visit Provider Surgery | DX: L02.31 Cutaneous abscess of buttock (principal); Z48.01 Encounter for change or removal of surgical wound dressing | CPT/HCPCS: G0463 ==

== ENCOUNTER → 2020-05-28 09:18 | Outpatient (CLI) | payer OTHER, SELFPAY | PROVIDERS: Visit Provider Surgery | DX: L02.31 Cutaneous abscess of buttock (principal); Z48.00 Encounter for change or removal of nonsurgical wound dressing | CPT/HCPCS: G0463 ==

== ENCOUNTER 2020-05-31 09:41 | Outpatient (CLI) | payer OTHER, SELFPAY ==
[2020-05-31 09:55] VITALS: BP 172/82; PULSE 75; RESP 18; O2SAT 99
== END 2020-05-31 10:02 | disposition home or self-care (01) ==
LOC: INF 09:42
PROVIDERS: PCP Nurse Practitioner Family; Visit Provider Surgery
DX: L02.31 Cutaneous abscess of buttock (principal); Z48.00 Encounter for change or removal of nonsurgical wound dressing
CPT/HCPCS: G0463

== ENCOUNTER 2020-06-02 09:23 | Outpatient (CLI) | payer OTHER, SELFPAY | END 2020-06-02 10:10 | disposition home or self-care (01) | LOC: INF 09:23 | PROVIDERS: PCP Nurse Practitioner Family; Visit Provider Surgery | DX: L02.31 Cutaneous abscess of buttock (principal); Z48.01 Encounter for change or removal of surgical wound dressing | CPT/HCPCS: G0463 ==

== ENCOUNTER 2020-06-03 08:50 | Outpatient (CLI) | payer OTHER, SELFPAY | END 2020-06-03 09:10 | disposition home or self-care (01) | LOC: INF 08:50 | PROVIDERS: Visit Provider Surgery | DX: L02.31 Cutaneous abscess of buttock (principal); Z48.00 Encounter for change or removal of nonsurgical wound dressing | CPT/HCPCS: G0463 ==

== ENCOUNTER 2020-06-04 10:11 | Outpatient (CLI) | payer OTHER, SELFPAY | END 2020-06-04 10:18 | disposition home or self-care (01) | LOC: INF 10:11 | PROVIDERS: Visit Provider Surgery | DX: L02.31 Cutaneous abscess of buttock (principal) | CPT/HCPCS: G0463 ==

== ENCOUNTER 2020-06-05 09:15 | Outpatient (CLI) | payer OTHER, SELFPAY | END 2020-06-05 09:30 | disposition home or self-care (01) | LOC: INF 09:24 | PROVIDERS: Visit Provider Surgery | DX: L02.31 Cutaneous abscess of buttock (principal); Z48.00 Encounter for change or removal of nonsurgical wound dressing | CPT/HCPCS: G0463 ==

== ENCOUNTER → 2020-06-07 10:46 | Outpatient (CLI) | payer OTHER, SELFPAY ==
[2020-06-07 10:46] VITALS: BP 132/84; PULSE 78; RESP 18; TEMP 36.6; O2SAT 98
== END ==
PROVIDERS: PCP Nurse Practitioner Family; Visit Provider Surgery
DX: L02.818 Cutaneous abscess of other sites (principal)
CPT/HCPCS: G0463

== ENCOUNTER → 2020-06-22 09:31 | Outpatient (CLI) | payer OTHER, SELFPAY ==
--- NOTE | 2020-06-22 09:35 | XR_ITS ---
PROCEDURE: XR HIP RT 2-3V W/PELVIS CLINICAL INDICATION: s/p RT MARILYN Follow-up hip replacement COMPARISON: CR XR HIP RT 2-3V W/PELVIS from 05/11/2020 FINDINGS: AP view of the pelvis shows bilateral total hip prosthesis present. The are in good position. AP and abduction ule views of the right hip show total hip prosthesis in place with good alignment most medial screw within acetabular cup projects superior and medial to the bony margin of the iliopectineal line within the soft tissues not significantly changed. IMPRESSION: Status post bilateral total hip replacement with good alignment as described Dictated by: Ede Herrear MD 06/22/2020 10:25 Ede Herrera MD in [place] 06/22/2020 10:25
== END ==
PROVIDERS: PCP Nurse Practitioner Family; Visit Provider Orthopaedic Surgery
DX: M25.551 Pain in right hip (principal); Z96.641 Presence of right artificial hip joint
CPT/HCPCS: 73502

== ENCOUNTER → 2020-08-19 17:54 | Outpatient (CLI) | payer OTHER, SELFPAY ==
[2020-08-19 18:32] LABS: Basophils % 0.4 % (0.1-2.0); Eosinophils # 0.3 K/mm3 (0.0-0.4); Eosinophils % 3.2 % (0.1-12.0); Hematocrit 46.3 % (42.0-52.0); Hemoglobin 16.5 g/dL (14.1-18.0); Lymphocytes # 2.8 K/mm3 (0.7-4.5); Mean Corpuscular HGB Conc 35.7 g/dL (31.8-35.4); Mean Corpuscular Hemoglobin 32.3 pg (27.0-31.2); Mean Corpuscular Volume 90.5 fl (80-94); Mean Platelet Volume 9.8 fl (7.4-10.4); Monocytes # 0.5 K/mm3 (0.1-1.0); Monocytes % 5.4 % (1.7-9.3); Platelet Count 192 K/mm3 (142-424); Red Blood Count 5.12 M/mm3 (4.60-6.20); Red Cell Distribution Width 14.5 % (11.5-17.5); White Blood Count 8.6 K/mm3 (4.8-10.8)
[2020-08-19 18:47] LABS: Alanine Aminotransferase 49 U/L (12-78); Albumin Level 4.3 g/dl (3.5-5.0); Albumin/Globulin Ratio 1.5 (1.1-1.8); Alkaline Phosphatase 110 U/L (38-126); Anion Gap 13.2 mEq/L (5-15); Aspartate Amino Transferase 44 U/L (17-59); Bilirubin,Total 0.7 mg/dl (0.2-1.3); Blood Urea Nitrogen 10 mg/dl (9-20); Calcium 9.1 mg/dl (8.4-10.2); Carbon Dioxide 22 mmol/L (22.0-30.0); Chloride 103 mmol/L (98-107); Chol/HDL Ratio 3.6 (1-3.5); Cholesterol 122 mg/dl (140-200); Estimated Glomerular Filt Rate 88 ml/min (>60); GFR (African American) 106 ML/MIN (>60); Globulin 2.8 g/dL (1.3-3.2); Glucose 116 mg/dl (74-100); HDL Cholesterol 34 mg/dl (40-60); Potassium 4.2 mmoL/L (3.5-5.1); Sodium 134 mmol/L (136-145); Total Protein,Serum 7.1 g/dl (6.3-8.2); Triglycerides 284 mg/dl (30-150); VLDL Cholesterol 57 mg/dL (0-40)
[2020-08-19 18:58] LABS: Direct LDL Cholesterol 53.61 mg/dL (100-129)
[2020-08-19 19:05] LABS: T4 (Thyroxine) 8.5 ug/dl (5.53-11.0)
[2020-08-19 19:06] LABS: 25-OH Vitamin D, Total 16.3 ng/mL (30-100)
[2020-08-19 19:18] LABS: Prostate Specific Ag Screen 0.5 ng/ml (0.0-4.0); Thyroid Stimulating Hormone 1.84 uIU/mL (0.465-4.68)
[2020-08-19 20:41] LABS: Hemoglobin A1C 7.1 % (4.0-6.0)
== END ==
PROVIDERS: Visit Provider Nurse Practitioner Family
DX: I10 Essential (primary) hypertension (principal); E78.5 Hyperlipidemia, unspecified; R73.03 Prediabetes; E55.9 Vitamin D deficiency, unspecified; E66.3 Overweight; Z68.31 Body mass index [BMI] 31.0-31.9, adult; Z12.5 Encounter for screening for malignant neoplasm of prostate
CPT/HCPCS: 80053; 80061; 82306; 83036; 84436; 84443; 85025; G0103

== ENCOUNTER → 2020-08-28 13:04 | Outpatient (CLI) | payer OTHER, SELFPAY ==
[2020-08-29 10:29] LABS: Creatinine,Urine Random 120 mg/dL (Not Estab.); Microalbumin < 3.000 mg/L (0-16.7)
== END ==
PROVIDERS: Visit Provider Nurse Practitioner Family
DX: E11.9 Type 2 diabetes mellitus without complications (principal); Z79.84 Long term (current) use of oral hypoglycemic drugs
CPT/HCPCS: 82043; 82570

== ENCOUNTER → 2020-10-30 09:23 | Outpatient (CLI) | payer OTHER, SELFPAY ==
--- NOTE | 2020-10-30 09:27 | XR_ITS ---
PROCEDURE: XR HIP LT 2-3V W/PELVIS XR HIP RIGHT 2-3 VIEWS CLINICAL INDICATION: s/p MARILYN Follow-up total hip replacement COMPARISON: CR XR HIP RT 2-3V W/PELVIS from 06/22/2020 CR XR HIP RT 2-3V W/PELVIS from 10/30/2020 FINDINGS: Status post bilateral total hip replacement. There remains good position with no evidence of hardware malfunction or dislocation. There is some heterotopic ossification along the lesser trochanter not significantly changed. IMPRESSION: No change good alignment without obvious hardware malfunction status post bilateral total hip replacement Dictated by: Ede Herrera MD 10/30/2020 11:24 Ede Herrera MD in [place] 10/30/2020 11:24
== END ==
PROVIDERS: PCP Nurse Practitioner Family; Visit Provider Orthopaedic Surgery
DX: Z96.641 Presence of right artificial hip joint (principal); Z96.642 Presence of left artificial hip joint
CPT/HCPCS: 73502

== ENCOUNTER 2020-11-05 18:50 | Emergency (ER) | payer OTHER, SELFPAY ==
[2020-11-05 21:04] VITALS: BP 00/00; PULSE 0; RESP 0; TEMP -17.7; TEMP 0
== END 2020-11-05 21:04 | disposition left against medical advice (07) ==
LOC: ER 19:11
PROVIDERS: Emergency Provider Family Medicine; PCP Nurse Practitioner Family
DX: Z53.21 Procedure and treatment not carried out due to patient leaving prior to being seen by health care provider (principal)
CPT/HCPCS: 99211

== ENCOUNTER → 2021-02-02 08:28 | Outpatient (CLI) | payer OTHER, SELFPAY ==
--- NOTE | 2021-02-02 08:31 | XR_ITS ---
PROCEDURE: XR HIP RT 2-3V W/PELVIS CLINICAL INDICATION: sp RT total hip sx 03/24/20 COMPARISON: CR XR HIP RT 2-3V W/PELVIS from 10/30/2020 FINDINGS: S/p total hip replacement on the right with good alignment. 1 the acetabular cup screws extends beyond the medial cortical margin the ilium. There are 2 clips along the mid to proximal femur laterally possibly within the patient's garment. Please correlate clinically. IMPRESSION: Good alignment status post total hip replacement Dictated by: Ede Herrera MD 02/02/2021 16:07 Ede Herrera MD in [place] 02/02/2021 16:07
== END ==
PROVIDERS: PCP Nurse Practitioner Family; Visit Provider Orthopaedic Surgery
DX: M70.61 Trochanteric bursitis, right hip (principal); Z96.641 Presence of right artificial hip joint; Z09 Encounter for follow-up examination after completed treatment for conditions other than malignant neoplasm
CPT/HCPCS: 73502

== ENCOUNTER → 2021-03-22 14:14 | Outpatient (CLI) | payer OTHER, SELFPAY ==
[2021-03-22 14:26] LABS: Basophils # 0.1 K/mm3 (0-0.2); Basophils % 0.9 % (0.1-2.0); Eosinophils # 0.2 K/mm3 (0.0-0.4); Eosinophils % 2.6 % (0.1-12.0); Hematocrit 49.2 % (42.0-52.0); Hemoglobin 16.3 g/dL (14.1-18.0); Lymphocytes # 2.7 K/mm3 (0.7-4.5); Lymphocytes % 31.4 % (10-50); Mean Corpuscular HGB Conc 33.2 g/dL (31.8-35.4); Mean Corpuscular Hemoglobin 33.5 pg (27.0-31.2); Mean Platelet Volume 10.5 fl (7.4-10.4); Monocytes # 0.4 K/mm3 (0.1-1.0); Monocytes % 4.9 % (1.7-9.3); Neutrophils # 5.2 K/mm3 (1.8-7.8); Neutrophils % 60.2 % (37.0-80.0); Platelet Count 208 K/mm3 (142-424); Red Blood Count 4.88 M/mm3 (4.60-6.20); Red Cell Distribution Width 13.2 % (11.5-17.5); White Blood Count 8.7 K/mm3 (4.8-10.8)
[2021-03-22 14:29] LABS: Alanine Aminotransferase 31 U/L (12-78); Albumin Level 4.4 g/dl (3.5-5.0); Albumin/Globulin Ratio 1.8 (1.1-1.8); Alkaline Phosphatase 80 U/L (38-126); Anion Gap 13.4 mEq/L (5-15); Aspartate Amino Transferase 33 U/L (17-59); Bilirubin,Total 0.6 mg/dl (0.2-1.3); Blood Urea Nitrogen 10 mg/dl (9-20); Calcium 9.5 mg/dl (8.4-10.2); Carbon Dioxide 27 mmol/L (22.0-30.0); Chloride 100 mmol/L (98-107); Chol/HDL Ratio 2.9 (1-3.5); Cholesterol 118 mg/dl (140-200); Estimated Glomerular Filt Rate 100 ml/min (>60); GFR (African American) 121 ML/MIN (>60); Globulin 2.5 g/dL (1.3-3.2); Glucose 104 mg/dl (74-100); HDL Cholesterol 41 mg/dl (40-60); Potassium 4.4 mmoL/L (3.5-5.1); Sodium 136 mmol/L (136-145); Total Protein,Serum 6.9 g/dl (6.3-8.2); Triglycerides 197 mg/dl (30-150); VLDL Cholesterol 39 mg/dL (0-40)
[2021-03-22 14:40] LABS: Direct LDL Cholesterol 52.53 mg/dL (100-129)
[2021-03-22 14:46] LABS: 25-OH Vitamin D, Total 21.1 ng/mL (30-100); T4 (Thyroxine) 7.9 ug/dl (5.53-11.0)
[2021-03-22 15:00] LABS: Thyroid Stimulating Hormone 1.45 uIU/mL (0.465-4.68)
[2021-03-22 16:24] LABS: Hemoglobin A1C 5.9 % (4.0-6.0)
[2021-03-23 11:25] LABS: C-Peptide 6.1 ng/mL (1.1-4.4)
== END ==
PROVIDERS: Visit Provider Nurse Practitioner Family
DX: E11.9 Type 2 diabetes mellitus without complications (principal); E55.9 Vitamin D deficiency, unspecified; Z79.84 Long term (current) use of oral hypoglycemic drugs; Z79.899 Other long term (current) drug therapy
CPT/HCPCS: 80053; 80061; 82306; 83036; 84436; 84443; 84681; 85025

== ENCOUNTER → 2021-05-05 08:46 | Outpatient (CLI) | payer OTHER, SELFPAY ==
--- NOTE | 2021-05-05 08:49 | XR_ITS ---
FINAL REPORT CLINICAL HISTORY: sp RT MARILYN, sx 03/24/[address] Thomas follow up since surgery. COMPARISON: February 02, 2021 FINDINGS: Right hip with pelvis. There is no acute fracture or dislocation. There has been bilateral hip arthroplasty. There are no soft tissue abnormalities. IMPRESSION: No acute process. Reviewed, Interpreted and Dictated by Teddy Diop MD Transcribed by Lalo Vargas Authenticated by Teddy Diop MD on 05/05/2021 10:51:42 AM [facility]
== END ==
PROVIDERS: PCP Nurse Practitioner Family; Visit Provider Orthopaedic Surgery
DX: Z09 Encounter for follow-up examination after completed treatment for conditions other than malignant neoplasm (principal)
CPT/HCPCS: 73502

== ENCOUNTER 2021-05-29 20:20 | Emergency (ER) | payer OTHER, SELFPAY ==
[2021-05-29 20:30] VITALS: BP 159/74; PULSE 78; RESP 16; TEMP 36.8; O2SAT 98; BMI 30.1
[2021-05-29 20:35] VITALS: BP 159/74; PULSE 78; RESP 16; TEMP 36.8; O2SAT 98
--- NOTE | 2021-05-29 20:53 | HMH.EDUTC ---
[facility] [place] Clinical Impression: Low back pain with sciatica Qualifiers: Chronicity: unspecified Back pain laterality: right Sciatica laterality: sciatica of right side Qualified Code(s): M54.41 - Lumbago with sciatica, right side Disposition: Home, Self-Care Condition on Discharge: Good Instructions: Low Back Pain, DI for Low Back Pain, DI for Sciatica, DI for Back Pain With Sciatica Additional Instructions: *Over the counter Ibuprofen lexus 6 hours with meal as needed for pain/inflammation if you can take it may help with pain *Remember you had a Toradol shot in the clinic today, which is similar to Motrin *Not additional anti-inflammatory like motrin, aleve, advil with the above amount of ibuprofen. You can still take Tylenol every 4 hours as needed if you need something else for pain *Ice 20 minutes every 2 hours for the first 48 hours after the initial injury followed by moist heat every 20 minutes 3-4 times a day to affected area Start oral steriods tomorrow *Keep this area active, no movement leads to more stiffness, However take it easy and avoid heavy lifting pushing or pulling *Follow up with you family doctor if no improvement for further treatment Prescriptions: predniSONE [Prednisone 20mg Tab] 20 mg PO BID 5 Days #10 tab Transmission Status: Pending to [facility] Referrals: Susan Crum APRN [Primary Care Provider] - As needed Time of Disposition: 21:04 Medical Decision Making - Lopez Inquiry Pt receiving controlled substance: No Lopez was queried for this patient: No Vital Signs: 05/29/21 20:30 05/29/21 20:35 Temperature 98.3 F 98.3 F Temperature Source Oral Oral Pulse Rate [Right] 78 78 Respiratory Rate 16 16 Blood Pressure [Right Arm] 159/74 H 159/74 H Blood Pressure Mean [Right Arm] 102 102 Blood Pressure Source [Right Arm] Automatic Cuff Blood Pressure Position [Right Arm] Sitting 02 Sat by Pulse Oximetry 98 98 Oxygen Delivery Method Room Air Medical Decision Narrative: Due to age discussed with patient and recommended Lspine xray and patient declined states that this is like the back pain with sciatica he has had in the past [facility] [place] - General Stated complaint: Lower back pain Time Seen by Provider: 05/29/21 20:53 Mode of Arrival: Ambulatory Source of Information: Patient Limitations: No Limitations Description of Symptoms (Recalled from Triage Doc. by RN): PATIENT C/O LOWER BACK PAIN THAT RADIATES DOWN RIGHT LEG HEENT Symptoms (Recalled from RN notes): No Resp Symptoms (Recalled from RN notes): No Skin Symptoms (Recalled from RN notes): No MS Symptoms (Recalled from RN notes): Yes Functional Status (Recalled from RN notes): WNL - History of Present Illness Provider Complaint: Patient state that he has sciatica in the past and often has flares every couple of months States that he felt it coming on and starting down right leg and wanted to come in and get a shot before it got bad Denies any new injury and denies any loss of control of bowel or bladder - Related Data Previous Rx's Medication Instructions Recorded blood-glucose meter See Rx Instructions .MEDSUPPLY #1 08/20/20 each lancets 21 gauge See Rx Instructions MISCELLANE 08/20/20 .MEDSUPPLY #100 each blood sugar diagnostic See Rx Instructions .MEDSUPPLY 11/02/20 #100 each carvedilol 12.5 mg tablet 12.5 mg PO BID #180 tab 12/25/20 lisinopril 5 mg tablet See Rx Instructions .ROUTE 03/12/21 .COMPLEX #90 tab aspirin 81 mg tablet,delayed 81 mg PO DAILY #90 tab 03/22/21 release atorvastatin 40 mg tablet See Rx Instructions .ROUTE 03/22/21 .COMPLEX #90 tab metformin 500 mg tablet,extended See Rx Instructions .ROUTE 03/22/21 release 24 hr .COMPLEX #180 tab omeprazole 20 mg capsule,delayed See Rx Instructions .ROUTE 03/22/21 release .COMPLEX #90 cap umeclidinium 62.5 mcg-vilanterol 1 inh INHALATION DAILY #60 each 03/22/21 25 mcg/actuation powdr for inhalation ergocalciferol (isabela
[2021-05-29 21:10] VITALS: BP 159/74; PULSE 78; RESP 16; TEMP 36.8; O2SAT 98
== END 2021-05-29 21:15 | disposition home or self-care (01) ==
PROVIDERS: Emergency Provider Nurse Practitioner; PCP Nurse Practitioner Family
DX: M54.41 Lumbago with sciatica, right side (principal); E11.9 Type 2 diabetes mellitus without complications; I10 Essential (primary) hypertension; I50.9 Heart failure, unspecified; K21.9 Gastro-esophageal reflux disease without esophagitis
CPT/HCPCS: 96372; 99213; G0463

== ENCOUNTER 2021-10-01 16:18 | Emergency (ER) | payer OTHER, SELFPAY ==
[2021-10-01 17:04] VITALS: BP 156/77; PULSE 89; RESP 18; TEMP 39.4; O2SAT 97; BMI 31.0
--- NOTE | 2021-10-01 17:16 | PC.NURSE ---
pt states he can take tylenol, percocet is what itches him
--- NOTE | 2021-10-01 17:35 | HMH.EDUTC ---
[facility] [place] Disposition Clinical Impression: Sciatic nerve pain Qualifiers: Laterality: right Qualified Code(s): M54.31 - Sciatica, right side Disposition: Home, Self-Care Condition on Discharge: Good Instructions: DI for Sciatica, Sciatica, DI for COVID-19 (Suspected or Confirmed ) Additional Instructions: Hold Atorvastatin while on Paxlovid it was called to the pharmacy for you Resume Atorvastatin after finishing paxlovid Return if needed Straight to ER if any life threatening symptoms FOllow up with your Family Doctor if needed Referrals: Jhony Monahan MD [Primary Care Provider] - As needed Time of Disposition: 18:07 Medical Decision Making - Lopez Inquiry Pt receiving controlled substance: No Lopez was queried for this patient: No Vital Signs: 10/01/21 17:04 Temperature 102.9 F H Temperature Source Oral Pulse Rate [Left Radial] 89 Respiratory Rate 18 Blood Pressure [Right Arm] 156/77 H Blood Pressure Mean [Right Arm] 103 Blood Pressure Source [Right Arm] Automatic Cuff Blood Pressure Position [Right Arm] Sitting 02 Sat by Pulse Oximetry 97 Oxygen Delivery Method Room Air Orders (Tests/Meds): ED MEDICATIONS Discontinued Medications Generic Name Dose Route Start Last Admin Trade Name Freq PRN Reason Stop Dose Admin Acetaminophen 1,000 mg 10/01/21 17:06 10/01/21 17:18 Acetaminophen 500mg Tab PO 10/01/21 17:07 Not Given ONCE ONE Acetaminophen 650 mg 10/01/21 17:16 10/01/21 17:17 Acetaminophen 325mg Tab PO 10/01/21 17:17 650 mg ONCE ONE Administration Ibuprofen 600 mg 10/01/21 17:06 10/01/21 17:17 Ibuprofen 600 Mg Tablet PO 10/01/21 17:07 600 mg ONCE ONE Administration Medical Decision Narrative: Spoke with pharmacy about paxlovid and dosed per pharmacy and recommended that he hold atorvastatin while on paxlovid [facility] [place] HPI - General Stated complaint: Covid+ back pain Time Seen by Provider: 10/01/21 17:35 Mode of Arrival: Ambulatory Source of Information: Patient Limitations: No Limitations Description of Symptoms (Recalled from Triage Doc. by RN): c/o back pain after vomiting today. pt is covid positive as of today HEENT Symptoms (Recalled from RN notes): No Resp Symptoms (Recalled from RN notes): No Skin Symptoms (Recalled from RN notes): No MS Symptoms (Recalled from RN notes): Yes Functional Status (Recalled from RN notes): na - History of Present Illness Provider Complaint: Patient states that he is COVID + and earlier today he was vomiting States that he has history of sciatica pain and thinks when he was bent over vomiting it aggrivated it and now having pain in his right lower back going into his buttock area like he had before with sciatica Denies any other injury Denies loss of control of bowel or bladder - Related Data Previous Rx's Medication Instructions Recorded blood-glucose meter See Rx Instructions .MEDSUPPLY #1 08/20/20 each lancets 21 gauge See Rx Instructions MISCELLANE 08/20/20 .MEDSUPPLY #100 each blood sugar diagnostic See Rx Instructions .MEDSUPPLY 11/02/20 #100 each metformin 500 mg tablet,extended See Rx Instructions .ROUTE 03/22/21 release 24 hr .COMPLEX #180 tab umeclidinium 62.5 mcg-vilanterol 1 inh INHALATION DAILY #60 each 03/22/21 25 mcg/actuation powdr for inhalation aspirin 81 mg tablet,delayed See Rx Instructions .ROUTE 07/15/21 release .COMPLEX #90 tab atorvastatin 40 mg tablet See Rx Instructions .ROUTE 09/07/21 .COMPLEX #90 tab carvedilol 12.5 mg tablet 12.5 mg PO BID #180 tab 09/07/21 lisinopril 10 mg tablet 10 mg PO DAILY #90 tab 09/07/21 omeprazole 20 mg capsule,delayed See Rx Instructions .ROUTE 09/07/21 release .COMPLEX #90 cap Allergies Allergy/AdvReac Type Severity Reaction Status Date / Time acetaminophen [From Percocet] AdvReac Verified 09/10/21 09:56 oxycodone [From Percocet] AdvReac Verified 09/10/21 09:56 - Worker's Comp Is this a Worker's Comp case?: No HM
[2021-10-01 18:11] VITALS: BP 156/77; PULSE 89; RESP 18; TEMP 37.5; O2SAT 97
== END 2021-10-01 18:14 | disposition home or self-care (01) ==
PROVIDERS: Emergency Provider Nurse Practitioner; PCP Emergency Medicine
DX: U07.1 COVID-19; I11.0 Hypertensive heart disease with heart failure; I50.9 Heart failure, unspecified; I25.10 Atherosclerotic heart disease of native coronary artery without angina pectoris; I25.2 Old myocardial infarction; R01.1 Cardiac murmur, unspecified; K21.9 Gastro-esophageal reflux disease without esophagitis; E78.5 Hyperlipidemia, unspecified; E11.9 Type 2 diabetes mellitus without complications; M19.90 Unspecified osteoarthritis, unspecified site; F17.210 Nicotine dependence, cigarettes, uncomplicated; Z79.82 Long term (current) use of aspirin; Z79.84 Long term (current) use of oral hypoglycemic drugs; Z79.899 Other long term (current) drug therapy; Z88.5 Allergy status to narcotic agent; Z88.6 Allergy status to analgesic agent; Z95.5 Presence of coronary angioplasty implant and graft; Z96.649 Presence of unspecified artificial hip joint; Z82.49 Family history of ischemic heart disease and other diseases of the circulatory system
CPT/HCPCS: 96372; 99213; G0463

== ENCOUNTER → 2021-11-02 08:43 | Outpatient (CLI) | payer OTHER, SELFPAY ==
--- NOTE | 2021-11-02 08:45 | XR_ITS ---
FINAL REPORT CLINICAL HISTORY: smoker, sob FINDINGS: TWO-VIEW CHEST The heart size is normal. The mediastinum is normal. There is linear density at the right base consistent with atelectasis. The left lung is clear. There is no pneumothorax. IMPRESSION: Right base atelectasis. Reviewed, Interpreted and Dictated by Teddy Diop MD Transcribed by Sridevi Balderrama Authenticated and [facility]
== END ==
PROVIDERS: PCP Nurse Practitioner Family; Visit Provider Nurse Practitioner Family
DX: R06.02 Shortness of breath (principal); F17.200 Nicotine dependence, unspecified, uncomplicated
CPT/HCPCS: 71046

== ENCOUNTER → 2021-12-18 09:02 | Outpatient (CLI) | payer MEDICARE, OTHER, SELFPAY | PROVIDERS: PCP Nurse Practitioner Family; Visit Provider Ophthalmology | DX: Z01.812 Encounter for preprocedural laboratory examination (principal); Z20.822 Contact with and (suspected) exposure to COVID-19 | CPT/HCPCS: C9803; U0003; U0005 ==

== ENCOUNTER 2021-12-21 09:17 | Day surgery (SDC) | payer MEDICARE, OTHER, SELFPAY ==
[2021-12-16 10:56] VITALS: BMI 35.2
[2021-12-21] VITALS (7 sets, daily range): BP systolic 145–162; BP diastolic 70–82; PULSE 55–63; RESP 16–18; TEMP 36.3–36.6; O2SAT 97–99
[2021-12-21 10:58] LABS: POC Glucose,Bedside 126 (70-110)
== END 2021-12-21 12:00 | disposition home or self-care (01) ==
LOC: OR 09:18
PROVIDERS: PCP Nurse Practitioner Family; Visit Provider Ophthalmology
PROC: (CPT 66984; principal; 2021-12-21 12:00)
DX: H25.811 Combined forms of age-related cataract, right eye (principal); E11.36 Type 2 diabetes mellitus with diabetic cataract; Z72.0 Tobacco use
CPT/HCPCS: 66984; 82962; V2632

== ENCOUNTER → 2022-06-15 11:55 | Outpatient (CLI) | payer MEDICARE, MEDICAID, SELFPAY ==
[2022-06-15 13:35] LABS: Basophils # 0.1 K/mm3 (0-0.2); Basophils % 0.4 % (0.1-2.0); Eosinophils # 0.1 K/mm3 (0.0-0.4); Eosinophils % 0.6 % (0.1-12.0); Hematocrit 49.7 % (42.0-52.0); Hemoglobin 16.4 g/dL (14.1-18.0); Lymphocytes # 2.3 K/mm3 (0.7-4.5); Lymphocytes % 17.4 % (10-50); Mean Corpuscular HGB Conc 32.9 g/dL (31.8-35.4); Mean Corpuscular Hemoglobin 32.9 pg (27.0-31.2); Mean Platelet Volume 9.3 fl (7.4-10.4); Monocytes # 0.8 K/mm3 (0.1-1.0); Monocytes % 6.4 % (1.7-9.3); Neutrophils # 9.8 K/mm3 (1.8-7.8); Neutrophils % 75.2 % (37.0-80.0); Platelet Count 194 K/mm3 (142-424); Red Blood Count 4.97 M/mm3 (4.60-6.20); Red Cell Distribution Width 13.3 % (11.5-17.5)
[2022-06-15 13:40] LABS: Chloride 99 mmol/L (98-107)
[2022-06-15 13:41] LABS: Potassium 4.4 mmoL/L (3.5-5.1); Sodium 133 mmol/L (136-145)
[2022-06-15 13:43] LABS: Alanine Aminotransferase 33 U/L (12-78); Alkaline Phosphatase 92 U/L (38-126); Aspartate Amino Transferase 33 U/L (17-59); Bilirubin,Total 1.3 mg/dl (0.2-1.3); Blood Urea Nitrogen 10 mg/dl (9-20); Estimated Glomerular Filt Rate 100 ml/min (>60); GFR (African American) 121 ML/MIN (>60)
[2022-06-15 13:44] LABS: Albumin Level 4.6 g/dl (3.5-5.0); Albumin/Globulin Ratio 1.6 (1.1-1.8); Anion Gap 14.4 mEq/L (5-15); Calcium 9.1 mg/dl (8.4-10.2); Carbon Dioxide 24 mmol/L (22.0-30.0); Chol/HDL Ratio 2.2 (1-3.5); Cholesterol 100 mg/dl (140-200); Globulin 2.8 g/dL (1.3-3.2); Glucose 136 mg/dl (74-100); HDL Cholesterol 46 mg/dl (40-60); Total Protein,Serum 7.4 g/dl (6.3-8.2); Triglycerides 123 mg/dl (30-150); VLDL Cholesterol 25 mg/dL (0-40)
[2022-06-15 13:55] LABS: Direct LDL Cholesterol 42.78 mg/dL (100-129)
[2022-06-15 19:01] LABS: Prostate Specific Ag Screen 0.4 ng/ml (0.0-4.0)
[2022-06-15 20:20] LABS: Hemoglobin A1C 5.8 % (4.0-6.0)
== END ==
PROVIDERS: PCP Nurse Practitioner Family; Visit Provider Nurse Practitioner Family
DX: R73.03 Prediabetes (principal); H92.02 Otalgia, left ear; I10 Essential (primary) hypertension; I20.8 Other forms of angina pectoris; Z12.5 Encounter for screening for malignant neoplasm of prostate
CPT/HCPCS: 80053; 80061; 83036; 84443; 85025; G0103

== ENCOUNTER 2022-09-30 14:10 | Emergency (ER) | payer MEDICARE, MEDICAID, SELFPAY ==
[2022-09-30] VITALS (8 sets, daily range): BP systolic 131–157; BP diastolic 62–119; PULSE 81–86; RESP 18; TEMP 36.8–37.7; O2SAT 93–98; BMI 31.6
--- NOTE | 2022-09-30 14:21 | ECG_ITS ---
APPROVED REPORT Exam: Resting ECG HR:84 bpm ECG Measurements Heart Rate 84 AXES WV 157 P 43 QRSd 94 QRS 18 QT 358 T 63 QTc 399 Conclusion SINUS RHYTHM POSSIBLE LEFT ATRIAL ENLARGEMENT [-0.1mV P-WAVE IN V1/V2] BORDERLINE ECG UNCONFIRMED REPORT Electronically signed by : Ryan Delgado MD 09/30/2022 17:10:40
[2022-09-30 14:39] LABS: Chloride 99 mmol/L (98-107)
[2022-09-30 14:40] LABS: Potassium 4.1 mmoL/L (3.5-5.1); Sodium 134 mmol/L (136-145)
[2022-09-30 14:42] LABS: Blood Urea Nitrogen 12 mg/dl (9-20); Creatinine Clearance Estimated 103 mL/min (50-200); Estimated Glomerular Filt Rate 69 ml/min (>60); GFR (African American) 84 ML/MIN (>60)
[2022-09-30 14:43] LABS: Alanine Aminotransferase 36 U/L (12-78); Albumin Level 4.5 g/dl (3.5-5.0); Albumin/Globulin Ratio 1.3 (1.1-1.8); Alkaline Phosphatase 77 U/L (38-126); Anion Gap 12.1 mEq/L (5-15); Aspartate Amino Transferase 31 U/L (17-59); Bilirubin,Total 1.6 mg/dl (0.2-1.3); Calcium 9.4 mg/dl (8.4-10.2); Carbon Dioxide 27 mmol/L (22.0-30.0); Globulin 3.5 g/dL (1.3-3.2); Glucose 121 mg/dl (74-100)
[2022-09-30 14:52] LABS: Basophils % 0.2 % (0.1-2.0); Eosinophils # 0.2 K/mm3 (0.0-0.4); Eosinophils % 1.1 % (0.1-12.0); Hematocrit 50.1 % (42.0-52.0); Lymphocytes # 2.3 K/mm3 (0.7-4.5); Lymphocytes % 11.8 % (10-50); Mean Corpuscular Hemoglobin 31.8 pg (27.0-31.2); Mean Corpuscular Volume 99.4 fl (80-94); Mean Platelet Volume 9.2 fl (7.4-10.4); Neutrophils # 15.8 K/mm3 (1.8-7.8); Neutrophils % 81.8 % (37.0-80.0); Platelet Count 179 K/mm3 (142-424); Red Blood Count 5.04 M/mm3 (4.60-6.20); Red Cell Distribution Width 13.4 % (11.5-17.5); White Blood Count 19.3 K/mm3 (4.8-10.8)
[2022-09-30 14:56] LABS: MANUAL DIFFERENTIAL MANUAL DIFFERENTIAL (MANUAL DIFF)
--- NOTE | 2022-09-30 15:23 | CT_ITS ---
FINAL REPORT TECHNIQUE: Thin section axial images were obtained through the abdomen after intravenous contrast. Reconstruction images were obtained from the axial data. Exam was performed using dose reduction techniques. CLINICAL HISTORY: R back pain, dysuria, dry heaving FINDINGS: The lung bases are clear. The liver is homogeneous. There are likely small gallstones in the gallbladder. The spleen, adrenal glands, and pancreas are unremarkable. There is no hydronephrosis or solid renal mass. There are fluid-filled small bowel loops which are nonspecific but can be seen with enteritis. There is no abdominal lymphadenopathy or ascites. Artifact is seen related to bilateral hip arthroplasties. The urinary bladder is obscured. The appendix is normal. The proximal colon is fluid-filled with mild hyperenhancement of the wall which can be seen with colitis. There is no pelvic lymphadenopathy or ascites. No acute osseous abnormalities identified. IMPRESSION: Possible enteritis. Findings concerning for proximal colitis. Reviewed, Interpreted and Dictated by Margaux Brewer MD Transcribed by Sridevi Balderrama Authenticated and [facility]
--- NOTE | 2022-09-30 15:26 | HMH.EDGENADL ---
Discharge Plan Disposition Patient Disposition: Home, Self-Care Condition: Good Prescriptions Prescriptions: New levofloxacin 750 mg tablet 750 mg PO DAILY 7 Days Qty: 7 0RF No Action fluticasone propionate [Flonase Allergy Relief] 50 mcg/actuation spray,suspension 2 spray intranasal DAILY 30 Days Qty: 11.1 4RF Rx Instructions: administer into each nostril (DME) blood pressure monitor [Blood Pressure Kit] Kit See Rx Instructions MISCELLANEOUS Qty: 1 0RF Rx Instructions: As directed (DME) Blood Glucose Test Strip See Rx Instructions .MEDSUPPLY Qty: 100 2RF Rx Instructions: test once BID Jardiance 10 mg tablet 10 mg PO DAILY Qty: 30 2RF Rx Instructions: Unable to tolerate Metformin Card stents, HTN, MA hydroxyzine HCl 25 mg tablet 25 mg PO TID Qty: 90 0RF aspirin 81 mg tablet,delayed release (DR/EC) See Rx Instructions .ROUTE .COMPLEX Qty: 90 0RF Dose Instruction: Take 1 tablet by mouth once daily Rx Instructions: Take 1 tablet by mouth once daily nitroglycerin 0.4 mg tablet, sublingual 0.4 mg sublingual Q5M PRN (Reason: chest pain) Qty: 25 4RF Rx Instructions: do not exceed 3 doses per episode atorvastatin 40 mg tablet See Rx Instructions .ROUTE .COMPLEX Qty: 90 1RF Dose Instruction: TAKE 1 TABLET BY MOUTH AT BEDTIME Rx Instructions: TAKE 1 TABLET BY MOUTH AT BEDTIME (DME) blood-glucose meter Kit See Rx Instructions .ROUTE .MEDSUPPLY Qty: 1 0RF Rx Instructions: As directed or x1 lisinopril 10 mg tablet See Rx Instructions .ROUTE .COMPLEX Qty: 90 0RF Dose Instruction: Take 1 tablet by mouth once daily Rx Instructions: Take 1 tablet by mouth once daily carvedilol 12.5 mg tablet See Rx Instructions .ROUTE .COMPLEX Qty: 90 1RF Dose Instruction: Take 1 tablet by mouth twice daily Rx Instructions: Take 1 tablet by mouth twice daily omeprazole 20 mg capsule,delayed release(DR/EC) See Rx Instructions .ROUTE .COMPLEX Qty: 90 1RF Dose Instruction: Take 1 capsule by mouth once daily Rx Instructions: Take 1 capsule by mouth once daily (DME) blood-glucose meter Misc See Rx Instructions MISCELLANEOUS Rx Instructions: test once daily (DME) lancets [Color Lancets] 21 gauge misc See Rx Instructions MISCELLANEOUS Rx Instructions: test once daily Referrals Follow up/Referrals: Sunny Barone APRN [Primary Care Provider] - See instructions Activity Restrictions/Add. Instructions Additional Instructions/Restrictions: At this time is felt you are safe to be discharged home. If new or worsening symptoms please do not hesitate to return the emergency department. Please take your medication as prescribed. Clinical Impressions Clinical Impression: Acute UTI, Colitis Discharge ED Provider: Kelechi Geiger General Adult HPI General Chief complaint: Nausea/Vomiting/Diarrhea Stated complaint: Nausea, dry heaving, weakness Time Seen by Provider: 09/30/22 15:00 Mode of Arrival: Ambulatory Source of Information: Patient Limitations: No Limitations Description of Symptoms (Recalled from ER Triage Doc. by RN): Presents via POV d/t concerns of being overheated. Pt states he was outside yesterday talking to a klaus when he developed lower back pain, nausea, headache, and dry heeving. Pt attempted to rest indoors and oral rehydration, however no improvement. Hx of cardiac stents x 2, +asa 81mg. History of Present Illness HPI narrative: Patient is a 57-year-old male with past medical history of ACS status post stenting who presents emergency department for evaluation of back pain. History is obtained by patient at bedside who states that he was staying with a friend outside for multiple hours where he felt overheated. He had sudden onset right lower back pain and 1 episode of dry heaving. Pain is persistent, nonmodifiab
[2022-09-30 15:53] LABS: Troponin I < 0.01 ng/ml (0.00-0.034)
[2022-09-30 15:58] LABS: Hypochromasia 2+; Lymphocytes % 9 % (10-50); Monocytes % 3 % (2-9); Neutrophils % 88 % (42-76); Platelet Estimate Normal; Total Cells Counted 100
[2022-09-30 16:03] LABS: Microscopic, Urine URINE MICROSCOPIC (MICROSCOPIC)
[2022-09-30 16:05] LABS: Appearance,Urine CLEAR (Clear); Bilirubin,Urine Negative (Negative); Blood, Urine TRACE-I (Negative); Color,Urine YELLOW (Yellow); Glucose,Urine (UA) 3+ (Negative); Ketones,Urine Negative (Negative); Leukocyte Esterase,Urine TRACE (Negative); Nitrate,Urine POSITIVE (Negative); PH,Urine 6.5 (5.0-8.5); Protein,Urine Negative (Negative)
--- NOTE | 2022-09-30 16:37 | PC.NURSE ---
pt updated on poc
[2022-09-30 16:46] LABS: Bacteria,Urine 1+ /lpf; RBC,Urine Occasional #/hpf (0-3)
--- NOTE | 2022-09-30 16:53 | PC.NURSE ---
CHECKED ON PT NOTHING NEEDED AT THIS TIME, AT BS
== END 2022-09-30 17:35 | disposition home or self-care (01) ==
PROVIDERS: Student in an Organized Health Care Education/Training Program; Emergency Provider Emergency Medicine; PCP Nurse Practitioner Family
DX: N39.0 Urinary tract infection, site not specified (principal); K52.9 Noninfective gastroenteritis and colitis, unspecified; R53.1 Weakness; I25.10 Atherosclerotic heart disease of native coronary artery without angina pectoris; J44.9 Chronic obstructive pulmonary disease, unspecified; E11.9 Type 2 diabetes mellitus without complications; I11.9 Hypertensive heart disease without heart failure; E78.5 Hyperlipidemia, unspecified; F17.210 Nicotine dependence, cigarettes, uncomplicated
CPT/HCPCS: 74177; 80053; 81001; 84484; 85007; 85025; 93005; 96361; 96374; 96375; 99285; J2405; Q9967

== ENCOUNTER 2023-03-17 15:45 | Emergency (ER) | payer MEDICARE, MEDICAID, SELFPAY ==
[2023-03-17 15:46] VITALS: BP 174/59; PULSE 72; RESP 18; TEMP 37; O2SAT 98; BMI 31.6
--- NOTE | 2023-03-17 16:00 | ED_ITS ---
Discharge Plan Disposition Patient Disposition: Home, Self-Care Condition: Fair Prescriptions Prescriptions: New methocarbamol 750 mg tablet 750 mg PO Q8H Qty: 90 0RF lidocaine 5 % adhesive patch,medicated 1 patch topical DAILY Qty: 15 0RF Rx Instructions: leave on most painful area for up to 12 hrs No Action fluticasone propionate [Flonase Allergy Relief] 50 mcg/actuation spray,suspension 2 spray intranasal DAILY 30 Days Qty: 11.1 4RF Rx Instructions: administer into each nostril (DME) blood pressure monitor [Blood Pressure Kit] Kit See Rx Instructions MISCELLANEOUS Qty: 1 0RF Rx Instructions: As directed (DME) Blood Glucose Test Strip See Rx Instructions .MEDSUPPLY Qty: 100 2RF Rx Instructions: test once BID aspirin 81 mg tablet,delayed release (DR/EC) See Rx Instructions .ROUTE .COMPLEX Qty: 90 0RF Dose Instruction: Take 1 tablet by mouth once daily Rx Instructions: Take 1 tablet by mouth once daily nitroglycerin 0.4 mg tablet, sublingual 0.4 mg sublingual Q5M PRN (Reason: chest pain) Qty: 25 4RF Rx Instructions: do not exceed 3 doses per episode (DME) blood-glucose meter Kit See Rx Instructions .ROUTE .MEDSUPPLY Qty: 1 0RF Rx Instructions: As directed or x1 omeprazole 20 mg capsule,delayed release(DR/EC) See Rx Instructions .ROUTE .COMPLEX Qty: 90 1RF Dose Instruction: Take 1 capsule by mouth once daily Rx Instructions: Take 1 capsule by mouth once daily lisinopril 10 mg tablet See Rx Instructions .ROUTE .COMPLEX Qty: 90 0RF Dose Instruction: Take 1 tablet by mouth once daily Rx Instructions: Take 1 tablet by mouth once daily atorvastatin 40 mg tablet See Rx Instructions .ROUTE .COMPLEX Qty: 90 1RF Dose Instruction: TAKE 1 TABLET BY MOUTH AT BEDTIME Rx Instructions: TAKE 1 TABLET BY MOUTH AT BEDTIME carvedilol 12.5 mg tablet See Rx Instructions .ROUTE .COMPLEX Qty: 180 4RF Dose Instruction: Take 1 tablet by mouth twice daily Rx Instructions: Take 1 tablet by mouth twice daily hydroxyzine HCl 25 mg tablet See Rx Instructions .ROUTE .COMPLEX Qty: 90 0RF Dose Instruction: TAKE 1 TABLET BY MOUTH THREE TIMES DAILY Rx Instructions: TAKE 1 TABLET BY MOUTH THREE TIMES DAILY Jardiance 10 mg tablet See Rx Instructions .ROUTE .COMPLEX Qty: 90 0RF Dose Instruction: Take 1 tablet by mouth once daily Rx Instructions: Take 1 tablet by mouth once daily (DME) blood-glucose meter Misc See Rx Instructions MISCELLANEOUS Rx Instructions: test once daily (DME) lancets [Color Lancets] 21 gauge misc See Rx Instructions MISCELLANEOUS Rx Instructions: test once daily levofloxacin 750 mg tablet 750 mg PO DAILY 7 Days Qty: 7 0RF Referrals Follow up/Referrals: Sunny Barone APRN [Primary Care Provider] - See instructions Activity Restrictions/Add. Instructions Additional Instructions/Restrictions: Please take the muscle relaxant and you may also use the lidocaine patch for your neck pain. You may also take Tylenol as needed. Please follow-up with your primary care doctor. Please return with any new or worsening symptoms. Clinical Impressions Clinical Impression: Injury of neck Qualifiers: Encounter type: initial encounter Qualified Code(s): S19.9XXA - Unspecified injury of neck, initial encounter Instructions Patient Instructions: DI for Neck Pain Discharge ED Provider: Regan Farr General Adult HPI General Chief complaint: Neck Pain/Injury Stated complaint: AO fall 03/13, neck pain Time Seen by Provider: 03/17/23 15:59 History of Present Illness HPI narrative: Patient notes left-sided neck pain after fall approximately 4 days ago. He tripped and had extension injury to his neck. The pain is located on the left side of his neck described as sharp and limits his range of motion of his neck. There is no midline pain. He denies any numbness or tingling in his extremities. He did not strike his head. He denies any visual complaints. Denies any chest pain, denies any shortness of breath. No previous therapies. Has not had similar symptoms before. Notes chronic neck and back issues. No syncope or presyncope. Related Data Home Medications Medication Instructions Recorded Confirmed blood-glucose meter 12/30/21 09/22/22 lancets 21 gauge (Color Lancets) 12/30/21 09/22/22 Previous Rx's Medication Instructions Recorded Flonase Allergy Relief 50 2 spray intranasal DAILY allergie 11/10/21 mcg/actuation nasal 30 days #11.1 mL spray,suspension (fluticasone propionate) aspirin 81 mg tablet,delayed See Rx Instructions .Route 01/27/22 release .COMPLEX #90 tabs nitroglycerin 0.4 mg sublingual 0.4 mg sublingual Q5M PRN chest 03/24/22 tablet pain #25 tabs blood pressure monitor (Blood #1 ea 08/18/22 Pressure Kit) blood sugar diagnostic (Blood #100 ea 08/18/22 Glucose Test strips) blood-glucose meter #1 ea 08/23/22 omeprazole 20 mg capsule,delayed See Rx Instructions .Route 09/26/22 release .COMPLEX #90 caps levofloxacin 750 mg tablet 750 mg PO DAILY 7 days #7 tabs 09/30/22 lisinopril 10 mg tablet See Rx Instructions .Route 12/20/22 .COMPLEX #90 tabs atorvastatin 40 mg tablet See Rx Instructions .Route 01/02/23 .COMPLEX #90 tabs carvedilol 12.5 mg tablet See Rx Instructions .Route 01/16/23 .COMPLEX #180 tabs hydroxyzine HCl 25 mg tablet See Rx Instructions .Route 02/10/23 .COMPLEX #90 tabs empagliflozin 10 mg tablet See Rx Instructions .Route 03/17/23 (Jardiance) .COMPLEX #90 tabs lidocaine 5 % topical patch 1 patch topical DAILY #15 ea 03/17/23 methocarbamol 750 mg tablet 750 mg PO Q8H #90 tabs 03/17/23 Allergies Allergy/AdvReac Type Severity Reaction Status Date / Time acetaminophen [From Percocet] AdvReac Verified 09/22/22 13:21 oxycodone [From Percocet] AdvReac Verified 09/22/22 13:21 [facility] Disclaimer: The information contained in this section may have been updated after the patient was seen, as this information can be updated by other users. Medical History CAD (coronary artery disease) COPD (chronic obstructive pulmonary disease) Diabetes HHD (hypertensive heart disease) HLD (hyperlipidemia) Surgical History History of left hip replacement History of right hip replacement Family History Other Family history of myocardial infarction Hypertension Social History (Reviewed 09/22/22 @ 13:21 by NATHALIE Fox Smoking Status: Current every day smoker tobacco type: cigarettes packs per day: 1 second hand exposure: Yes alcohol intake: current substance use type: denies use current occupational status: unemployed Travel in the last 8 weeks: None household members: spouse housing: house current occupational exposures/hazards: No caffeine: No ROS Obtained: Yes Systems reviewed as appropriate & no additional complaints except as documented As per HPI Physical Exam General General appearance: alert and in no apparent distress Head Head exam: atraumatic and normocephalic Eye Eye exam: Present normal appearance Neck Neck exam: Present normal inspection and other (Left-sided tenderness to palpation along distribution of sternocleidomastoid muscle. No midline cervical spinal tenderness palpation. Full strength in bilateral upper and lower extremities. No sensory deficits.) Chest Chest inspection: Present normal inspection and symmetric chest wall rise Respiratory Respiratory exam: Present normal lung sounds bilaterally; Absent respiratory distress Cardiovascular Cardiovascular exam: Present regular rate and normal rhythm Abdominal Exam Abdominal exam: Present soft Neurological Exam Neurological exam: Present alert and oriented X3 Psychiatric Psychiatric exam: Present normal affect and normal mood Skin Skin exam: Present warm and dry Medical Decision Making Medical Records Medical records reviewed: Yes I reviewed the patient's medical records. Lopez Inquiry Pt receiving controlled substance: No Vital Signs: 03/17/23 15:46 03/17/23 17:56 Temperature 98.6 F 97.9 F Temperature Source Oral Oral Pulse Rate 68 Pulse Rate [Radial] 72 Respiratory Rate 18 18 Blood Pressure 145/98 H Blood Pressure [Left Arm] 174/59 H Blood Pressure Mean [Left Arm] 97 Blood Pressure Source Automatic Cuff Blood Pressure Source [Left Arm] Automatic Cuff Blood Pressure Position Sitting Blood Pressure Position [Left Arm] Sitting 02 Sat by Pulse Oximetry 98 Oxygen Delivery Method Room Air Nasal Cannula Room Air Lab Data Lab Results 03/17/23 16:35: Sodium 138, Potassium 4.7, Chloride 102, Carbon Dioxide 29, Anion Gap 11.7, BUN 14, Creatinine 1.00, Estimated Creat Clear 112, Estimated GFR 77, Est GFR ( Amer) 93, Glucose 153 H, Calcium 8.8, Total Bilirubin 0.7, AST 55, ALT 38, Alkaline Phosphatase 91, Total Protein 7.7, Albumin 4.3, Globulin 3.4 H, Albumin/Globulin Ratio 1.3 03/17/23 16:35 Orders (Tests/Meds): ED MEDICATIONS Discontinued Medications Generic Name Dose Route Start Last Admin Trade Name Freq PRN Reason Stop Dose Admin Acetaminophen 1,000 mg 03/17/23 16:28 03/17/23 16:35 Acetaminophen 500mg Tab PO 03/17/23 16:29 1,000 mg ONCE ONE Administration Diazepam 2 mg 03/17/23 16:28 03/17/23 16:35 Diazepam 2mg Tablet PO 03/17/23 16:29 2 mg ONCE ONE Administration Ibuprofen 600 mg 03/17/23 16:28 03/17/23 16:34 Ibuprofen 600 Mg Tablet PO 03/17/23 16:29 600 mg ONCE ONE Administration Iopamidol 100 ml 03/17/23 17:22 03/17/23 17:23 Iopamidol-370 (76%);100ml Bottle IV 03/17/23 17:23 100 ml ONCE ONE Administration Sodium Chloride 50 ml 03/17/23 17:22 03/17/23 17:23 0.9 % Sodium Chloride 50 Ml Vial IV 03/17/23 17:23 50 ml ONCE ONE Administration Sodium Chloride 10 ml 03/17/23 17:22 03/17/23 17:23 Sodium Chloride 0.9% 10ml Syr (Rad Only) IV 03/17/23 17:23 10 ml ONCE ONE Administration ORDERS Category Date Time Status CT angio neck Stat Cat Scan 03/17/23 16:[address] cervical spine wo con Stat Cat Scan 03/17/23 16:25 Completed CMP [Comprehensive Metabolic Panel] Stat Lab 03/17/23 16:35 Completed Medical Decision Narrative: Patient with history and exam per above presenting for evaluation of neck pain Diagnoses considered include fracture, central cord syndrome, dissection, soft tissue injury. ED workup and treatment included: ED MEDICATIONS Discontinued Medications Generic Name Dose Route Start Last Admin Trade Name Freq PRN Reason Stop Dose Admin Acetaminophen 1,000 mg 03/17/23 16:28 03/17/23 16:35 Acetaminophen 500mg Tab PO 03/17/23 16:29 1,000 mg ONCE ONE Administration Diazepam 2 mg 03/17/23 16:28 03/17/23 16:35 Diazepam 2mg Tablet PO 03/17/23 16:29 2 mg ONCE ONE Administration Ibuprofen 600 mg 03/17/23 16:28 03/17/23 16:34 Ibuprofen 600 Mg Tablet PO 03/17/23 16:29 600 mg ONCE ONE Administration Iopamidol 100 ml 03/17/23 17:22 03/17/23 17:23 Iopamidol-370 (76%);100ml Bottle IV 03/17/23 17:23 100 ml ONCE ONE Administration Sodium Chloride 50 ml 03/17/23 17:22 03/17/23 17:23 0.9 % Sodium Chloride 50 Ml Vial IV 03/17/23 17:23 50 ml ONCE ONE Administration Sodium Chloride 10 ml 03/17/23 17:22 03/17/23 17:23 Sodium Chloride 0.9% 10ml Syr (Rad Only) IV 03/17/23 17:23 10 ml ONCE ONE Administration ORDERS Category Date Time Status CT angio neck Stat Cat Scan 03/17/23 16:[address] cervical spine wo con Stat Cat Scan 03/17/23 16:25 Completed CMP [Comprehensive Metabolic Panel] Stat Lab 03/17/23 16:35 Completed Labs were independently interpreted by me, significant for no acute findings Imaging was independently visualized and interpreted by me, significant for multilevel degenerative changes, however no acute vascular pathology, no fracture. Mild stenosis of carotid vessels of which patient was informed to follow-up with primary care provider Symptoms at this time are thought to be most consistent with soft tissue injury, specifically sternocleidomastoid Patient reported improvement of symptoms upon repeat evaluation. I discussed my clinical impression with patient and answered all questions. At this time, given reassuring workup and exam, I discussed that I have a low index of suspicion for any acute pathology necessitating inpatient management. Specific return precautions were given, with understanding and agreement. Patient will follow up with primary care provider as needed. Please see discharge section of note for any medication adjustments or new prescriptions. Critical Care Critical Care Time Critical Care Time: No
--- NOTE | 2023-03-17 16:22 | PC.NURSE ---
DR SEYMOUR AT BEDSIDE
--- NOTE | 2023-03-17 16:25 | CT_ITS ---
PROCEDURE INFORMATION: Exam: CTA Neck With Contrast Exam date and time: 03/17/2023 5:18 PM Age: 58 years old Clinical indication: Injury or trauma; Blunt trauma; Patient HX: C/O left sided neck pain after fall a couple days ago; Additional info: L sided neck pain, extension injury TECHNIQUE: Imaging protocol: Computed tomographic angiography of the neck with contrast. Exam focused on the cervical segments of the vasculature. 3D rendering (Not supervised by radiologist): MIP and/or 3D reconstructed images were created by the technologist. Radiation optimization: All CT scans at this facility use at least one of these dose optimization techniques: automated exposure control; mA and/or kV adjustment per patient size (includes targeted exams where dose is matched to clinical indication); or iterative reconstruction. Contrast material: ISOVUE; Contrast volume: 100 ml; Contrast route: INTRAVENOUS (IV); COMPARISON: CT CERVICAL SPINE WO CON 03/17/2023 5:16 PM FINDINGS: Right common carotid artery: No stenosis. No dissection or occlusion. Right internal carotid artery: Mild atherosclerotic changes contribute to less than 50% stenosis by NASCET criteria at the origin of right internal carotid artery. Right external carotid artery: No occlusion or stenosis of the origin. Left common carotid artery: No stenosis. No dissection or occlusion. Left internal carotid artery: Mild atherosclerotic changes contribute to less than 50% stenosis by NASCET criteria at the origin of left internal carotid artery. Left external carotid artery: No occlusion or stenosis of the origin. Right vertebral artery: No stenosis. No dissection or occlusion. Left vertebral artery: No stenosis. No dissection or occlusion. Soft tissues: Normal. No significant soft tissue swelling. Bones/joints: No acute fracture. IMPRESSION: Mild atherosclerotic changes contribute to less than 50% stenosis by NASCET criteria at the origin of bilateral internal carotid arteries. REFERENCES: NASCET CRITERIA. The degree of stenosis in the cervical segment of the internal carotid artery is based on NASCET criteria. Normal is no stenosis. Mild is less than 50% stenosis. Moderate is 50-69% stenosis. Severe is 70% to 99% stenosis. Total occlusion is no detectable patent lumen.
--- NOTE | 2023-03-17 16:25 | CT_ITS ---
PROCEDURE INFORMATION: Exam: CT Cervical Spine Without Contrast Exam date and time: 03/17/2023 5:16 PM Age: 58 years old Clinical indication: Injury or trauma; Blunt trauma; Patient HX: C/O left sided neck pain after fall a couple days ago; Additional info: L sided neck pain, extension injury TECHNIQUE: Imaging protocol: Computed tomography of the cervical spine without contrast. Radiation optimization: All CT scans at this facility use at least one of these dose optimization techniques: automated exposure control; mA and/or kV adjustment per patient size (includes targeted exams where dose is matched to clinical indication); or iterative reconstruction. COMPARISON: MR CERVICAL SPINE WO CON 12/24/2018 8:59 AM FINDINGS: Bones/joints: There is preservation of vertebral alignment. There is preservation of vertebral body heights. Facet joints are aligned. No acute fracture.Odontoid process is intact. Atlantoaxial interval is maintained. C2-C3: No significant spinal canal stenosis. Uncovertebral and facet arthropathy produce mild bilateral neural foraminal narrowing. C3-C4: No significant disc bulge or herniation. No severe spinal canal stenosis. No significant neural foraminal narrowing. C4-C5: No significant spinal canal stenosis. Uncovertebral and facet arthropathy produce mild to moderate bilateral neural foraminal narrowing. C5-C6: No significant spinal canal stenosis. Uncovertebral and facet arthropathy produce moderate bilateral neural foraminal narrowing. C6-C7: No significant disc bulge or herniation. No severe spinal canal stenosis. No significant neural foraminal narrowing. C7-T1: No significant disc bulge or herniation. No severe spinal canal stenosis. No significant neural foraminal narrowing. Paranasal sinuses: Scattered mucosal thickening throughout the paranasal sinuses. Mastoid air cells: Opacification of left mastoid air cells noted. Lungs: Lung apices are normal. Soft tissues: Unremarkable. IMPRESSION: 1. No acute fracture or traumatic subluxation of the cervical spine. 2. Multilevel degenerative changes more pronounced at C4-C5, C5-C6 contributing to moderate bilateral neural foraminal narrowing. 3. Opacification of left mastoid air cells noted. Superimposed infection is difficult to exclude based on imaging features alone. Correlate clinically
[2023-03-17] MEDS: IBUPROFEN 600 MG TABLET PO (16:34)
[2023-03-17] MEDS: ACETAMINOPHEN 500MG TAB 1000 MG PO (16:35)
[2023-03-17] MEDS: diazePAM 2MG TABLET 2 MG PO (16:35)
[2023-03-17 16:52] LABS: Chloride 102 mmol/L (98-107); Potassium 4.7 mmoL/L (3.5-5.1); Sodium 138 mmol/L (136-145)
[2023-03-17 16:54] LABS: Alanine Aminotransferase 38 U/L (12-78); Blood Urea Nitrogen 14 mg/dl (9-20); Creatinine Clearance Estimated 112 mL/min (50-200); Estimated Glomerular Filt Rate 77 ml/min (>60); GFR (African American) 93 ML/MIN (>60)
[2023-03-17 16:55] LABS: Albumin Level 4.3 g/dl (3.5-5.0); Albumin/Globulin Ratio 1.3 (1.1-1.8); Alkaline Phosphatase 91 U/L (38-126); Anion Gap 11.7 mEq/L (5-15); Aspartate Amino Transferase 55 U/L (17-59); Bilirubin,Total 0.7 mg/dl (0.2-1.3); Calcium 8.8 mg/dl (8.4-10.2); Carbon Dioxide 29 mmol/L (22.0-30.0); Globulin 3.4 g/dL (1.3-3.2); Glucose 153 mg/dl (74-100); Total Protein,Serum 7.7 g/dl (6.3-8.2)
[2023-03-17] MEDS: IOPAMIDOL-370 (76%);100ML BOTTLE 100 ML IV (17:23)
[2023-03-17] MEDS: 0.9 % SODIUM CHLORIDE 50 ML VIAL IV (17:23)
[2023-03-17] MEDS: SODIUM CHLORIDE 0.9% 10ML SYR (RAD ONLY) 10 ML IV (17:23)
[2023-03-17 17:56] VITALS: BP 145/98; PULSE 68; RESP 18; TEMP 36.6; O2SAT 98
== END 2023-03-17 17:56 | disposition home or self-care (01) ==
PROVIDERS: Emergency Provider Emergency Medicine; PCP Nurse Practitioner Family
DX: M54.2 Cervicalgia (principal); W01.0XXA Fall on same level from slipping, tripping and stumbling without subsequent striking against object, initial encounter; I25.10 Atherosclerotic heart disease of native coronary artery without angina pectoris; J44.9 Chronic obstructive pulmonary disease, unspecified; E11.9 Type 2 diabetes mellitus without complications; I11.9 Hypertensive heart disease without heart failure; E78.5 Hyperlipidemia, unspecified; F17.210 Nicotine dependence, cigarettes, uncomplicated
CPT/HCPCS: 70498; 72125; 80053; 99285; Q9967

== ENCOUNTER 2023-03-20 00:32 | Emergency (ER) | payer MEDICARE, MEDICAID, SELFPAY ==
[2023-03-20 00:39] VITALS: BP 157/113; PULSE 69; RESP 20; TEMP 36.7; O2SAT 99; BMI 31.6
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
[2023-03-20] MEDS: METHOCARBAMOL 500MG TABLET 750 MG PO (00:59)
[2023-03-20] MEDS: ACETAMINOPHEN 500MG TAB 1000 MG PO (00:59)
[2023-03-20] MEDS: DEXAMETHASONE 4MG TABLET 10 MG PO (01:00)
[2023-03-20] MEDS: LIDOCAINE 5% TRANSDERMAL PATCH 1 EACH TP (01:01)
[2023-03-20] MEDS: KETOROLAC 30MG/ML VIAL 30 MG IM (01:01)
[2023-03-20 01:25] VITALS: BP 144/69; PULSE 68; RESP 18; TEMP 36.9; O2SAT 96
== END 2023-03-20 01:26 | disposition home or self-care (01) ==
PROVIDERS: Emergency Provider Emergency Medicine; PCP Nurse Practitioner Family
DX: M54.41 Lumbago with sciatica, right side (principal); I11.9 Hypertensive heart disease without heart failure; I25.10 Atherosclerotic heart disease of native coronary artery without angina pectoris; J44.9 Chronic obstructive pulmonary disease, unspecified; E11.9 Type 2 diabetes mellitus without complications; E78.5 Hyperlipidemia, unspecified; F17.210 Nicotine dependence, cigarettes, uncomplicated
CPT/HCPCS: 96372; 99283

== ENCOUNTER 2023-05-04 18:27 | Outpatient (CLI) | payer MEDICARE, MEDICAID, SELFPAY ==
[2023-05-04 18:05] LABS: Hemoglobin A1C 6.8 % (4.0-6.0)
[2023-05-04 18:06] LABS: Basophils % 0.4 % (0.1-2.0); Eosinophils # 0.4 K/mm3 (0.0-0.4); Hematocrit 49.3 % (42.0-52.0); Hemoglobin 16.7 g/dL (14.1-18.0); Lymphocytes # 2.8 K/mm3 (0.7-4.5); Lymphocytes % 31.1 % (10-50); Mean Corpuscular HGB Conc 33.9 g/dL (31.8-35.4); Mean Corpuscular Hemoglobin 33.5 pg (27.0-31.2); Mean Platelet Volume 9.6 fl (7.4-10.4); Monocytes # 0.5 K/mm3 (0.1-1.0); Monocytes % 5.8 % (1.7-9.3); Neutrophils # 5.4 K/mm3 (1.8-7.8); Neutrophils % 58.8 % (37.0-80.0); Platelet Count 189 K/mm3 (142-424); Red Blood Count 4.98 M/mm3 (4.60-6.20); Red Cell Distribution Width 13.4 % (11.5-17.5); White Blood Count 9.2 K/mm3 (4.8-10.8)
[2023-05-04 18:39] LABS: Alanine Aminotransferase 46 U/L (12-78); Albumin Level 4.1 g/dl (3.5-5.0); Albumin/Globulin Ratio 1.5 (1.1-1.8); Alkaline Phosphatase 86 U/L (38-126); Anion Gap 11.4 mEq/L (5-15); Aspartate Amino Transferase 67 U/L (17-59); Bilirubin,Total 0.6 mg/dl (0.2-1.3); Blood Urea Nitrogen 12 mg/dl (9-20); Calcium 9.1 mg/dl (8.4-10.2); Carbon Dioxide 24 mmol/L (22.0-30.0); Chloride 106 mmol/L (98-107); Chol/HDL Ratio 4.3 (1-3.5); Cholesterol 128 mg/dl (140-200); Estimated Glomerular Filt Rate 77 ml/min (>60); GFR (African American) 93 ML/MIN (>60); Globulin 2.8 g/dL (1.3-3.2); Glucose 120 mg/dl (74-100); HDL Cholesterol 30 mg/dl (40-60); Potassium 4.4 mmoL/L (3.5-5.1); Sodium 137 mmol/L (136-145); Total Protein,Serum 6.9 g/dl (6.3-8.2); Triglycerides 267 mg/dl (30-150); VLDL Cholesterol 53 mg/dL (0-40)
[2023-05-04 18:50] LABS: Direct LDL Cholesterol 66.68 mg/dL (100-129)
[2023-05-04 18:55] LABS: 25-OH Vitamin D, Total 19.4 ng/mL (30-100)
[2023-05-04 19:09] LABS: Thyroid Stimulating Hormone 2.36 uIU/mL (0.465-4.68)
== END 2023-05-04 23:59 ==
LOC: LAB.DROPOF 18:27
PROVIDERS: PCP Nurse Practitioner Family; Visit Provider Nurse Practitioner Family
DX: I10 Essential (primary) hypertension (principal); E78.5 Hyperlipidemia, unspecified; E11.9 Type 2 diabetes mellitus without complications; R53.83 Other fatigue; E55.9 Vitamin D deficiency, unspecified; Z79.899 Other long term (current) drug therapy
CPT/HCPCS: 80053; 80061; 82306; 83036; 84443; 85025

== ENCOUNTER 2023-08-21 17:33 | Emergency (ER) | payer MEDICARE, MEDICAID, SELFPAY ==
[2023-08-21 17:35] VITALS: BP 138/69; PULSE 69; RESP 16; TEMP 36.7; O2SAT 97; BMI 29.5
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
--- NOTE | 2023-08-21 18:00 | PC.NURSE ---
PERFECTO Salas at bedside
[2023-08-21] MEDS: METHYLPREDNISOLONE SOD SUCC 125MG VIAL 60 MG IM (18:15)
[2023-08-21 18:17] VITALS: BP 144/88; PULSE 74; RESP 18; TEMP 36.6; O2SAT 98
== END 2023-08-21 18:21 | disposition home or self-care (01) ==
PROVIDERS: Emergency Provider Emergency Medicine; PCP Nurse Practitioner Family
DX: R20.2 Paresthesia of skin (principal)
CPT/HCPCS: 96372; 99283; J2919

== ENCOUNTER 2023-08-30 08:32 | Outpatient (CLI) | payer MEDICARE, MEDICAID, SELFPAY ==
--- NOTE | 2023-08-30 09:09 | XR_ITS ---
FINAL REPORT CLINICAL HISTORY: right shoulder pain FINDINGS: Two views show no evidence of acute displaced fracture or dislocation of the visualized bony architecture. There are mild degenerative changes. There is an os acromiale as a normal variant. IMPRESSION: Mild degenerative changes. Reviewed, Interpreted and Dictated by Ranjith Biswas MD Transcribed by Sridevi Balderrama Authenticated and [facility]
--- NOTE | 2023-08-30 09:09 | XR_ITS ---
FINAL REPORT CLINICAL HISTORY: right elbow pain FINDINGS: Three views of the right elbow were obtained. There is no acute fracture or dislocation. There are severe degenerative changes. Small joint effusion is identified. IMPRESSION: Severe degenerative changes and small joint effusion. Reviewed, Interpreted and Dictated by Ranjith Biswas MD Transcribed by Sridevi Balderrama Authenticated and [facility]
== END 2023-08-30 23:59 | disposition home or self-care (01) ==
PROVIDERS: PCP Nurse Practitioner Family; Visit Provider Physician Assistant
DX: M25.521 Pain in right elbow (principal); M25.511 Pain in right shoulder
CPT/HCPCS: 73030; 73080

== ENCOUNTER 2023-09-18 08:10 | Day surgery (SDC) | payer MEDICARE, MEDICAID, SELFPAY ==
[2023-09-12 10:50] VITALS: BMI 31.6
[2023-09-18] VITALS (10 sets, daily range): BP systolic 115–155; BP diastolic 54–76; PULSE 61–67; RESP 16–24; TEMP 36.3–36.7; O2SAT 94–99; BMI 31.6
[2023-09-18 08:39] LABS: POC Glucose,Bedside 258 (70-110)
--- NOTE | 2023-09-18 08:45 | ECG_ITS ---
APPROVED REPORT Exam: Resting ECG HR:63 bpm ECG Measurements Heart Rate 63 AXES ME 157 P 48 QRSd 102 QRS 13 QT 405 T 32 QTc 411 Conclusion SINUS RHYTHM Late R wave progression Isolated Q-wave in lead III, probable normal variant ABNORMAL ECG UNCONFIRMED REPORT Electronically signed by : Ryan Delgado MD 09/20/2023 08:34:58
[2023-09-18] MEDS: LACTATED RINGERS 1000ML 1,000 ML 25 ML IV (08:47)
[2023-09-18 09:03] LABS: Basophils # 0.1 K/mm3 (0-0.2); Basophils % 0.8 % (0.1-2.0); Eosinophils # 0.3 K/mm3 (0.0-0.4); Eosinophils % 5.3 % (0.1-12.0); Hematocrit 46.3 % (42.0-52.0); Hemoglobin 15.5 g/dL (14.1-18.0); Lymphocytes # 1.9 K/mm3 (0.7-4.5); Lymphocytes % 29.5 % (10-50); Mean Corpuscular HGB Conc 33.4 g/dL (31.8-35.4); Mean Corpuscular Hemoglobin 33.7 pg (27.0-31.2); Mean Platelet Volume 8.7 fl (7.4-10.4); Monocytes # 0.3 K/mm3 (0.1-1.0); Monocytes % 4.2 % (1.7-9.3); Neutrophils # 3.8 K/mm3 (1.8-7.8); Neutrophils % 60.2 % (37.0-80.0); Platelet Count 172 K/mm3 (142-424); Red Blood Count 4.59 M/mm3 (4.60-6.20); Red Cell Distribution Width 14.4 % (11.5-17.5); White Blood Count 6.3 K/mm3 (4.8-10.8)
[2023-09-18 09:07] LABS: Chloride 105 mmol/L (98-107)
[2023-09-18 09:08] LABS: Potassium 4.2 mmoL/L (3.5-5.1); Sodium 134 mmol/L (136-145)
--- NOTE | 2023-09-18 09:08 | EXP.ANES.CKL ---
[facility] Disclaimer: The information contained in this section may have been updated after the patient was seen, as this information can be updated by other users. Medical History Tobacco use Retracted tympanic membrane Fluid level behind tympanic membrane Mixed hearing loss mild to moderate mixed loss left ear per Audiometric SNHL (sensorineural hearing loss) mild to moderate predominantly SNHL right ear per Audiometric Chronic dysfunction of both eustachian tubes Hearing problem of left ear Sinusitis COPD (chronic obstructive pulmonary disease) Diabetes HLD (hyperlipidemia) HHD (hypertensive heart disease) CAD (coronary artery disease) Surgical History History of left hip replacement History of right hip replacement Family History Other Family history of myocardial infarction Hypertension Social History Smoking Status: Current every day smoker tobacco type: cigarettes packs per day: 1 second hand exposure: Yes alcohol intake: never substance use type: denies use current occupational status: disabled Travel in the last 8 weeks: None household members: spouse housing: house current occupational exposures/hazards: No caffeine: No [facility] Anesthesia Checklist Patient Identification Patient Identification: Arm Band Structural Data Admitted From: Home Planned Operative Procedure/s: Left Myringotomy Tube Placement Consent for Planned Operative Procedure(s) Verified: Yes Verified Documents: Surgical Consent and History and Physical NPO Status Verified Time NPO: 00:00 Additional verifications Anesthesia Reactions: No Hx Blood Transfusions: No Blood Transfusion Reaction: No Airway Assessment Mallampati Score:: Class III C-Spine Mobility Assessed: Yes TMJ Mobility Assessed: Yes Dentition: Poor Dentition Neurological Assessment Level of Consciousness: Awake, Alert and Appropriate Anesthesia Plan Anesthesia Risk discussed: Yes Anesthesia Plan: Verified ASA Class: III Anesthesia Type: General
[2023-09-18 09:11] LABS: Anion Gap 8.2 mEq/L (5-15); Blood Urea Nitrogen 8 mg/dl (9-20); Carbon Dioxide 25 mmol/L (22.0-30.0); Creatinine Clearance Estimated 140 mL/min (50-200); Estimated Glomerular Filt Rate 100 ml/min (>60); GFR (African American) 121 ML/MIN (>60); Glucose 234 mg/dl (74-100)
[2023-09-18] MEDS: CIPRO 0.3%-DEX 0.1% OTIC SUSP 7.5ML 7.5 ML OT (09:38)
--- NOTE | 2023-09-18 09:40 | EXP.OP.NOTE ---
Date of procedure: 09/18/23 Pre-op Diagnosis:: Left serous otitis media Post-op Diagnosis:: Same Procedure performed:: Left myringotomy with tube placement Surgeon:: Ildefonso Ragsdale III, MD Engineering And Scientific Programmer(s):: None PHOTOGRAPHER PORTRAIT:: Jeannine Pardo Anesthesia: GETA Estimated blood loss (mL): 0 Operative findings:: Retracted left tympanic membrane Operative note:: The patient was brought to the operating placed under general endotracheal anesthesia with an LMA device. The left external auditory canal was cleaned and inspected a radial incision made inferiorly tympanic membrane there is an area of atelectasis that we try to avoid anteriorly. After this was done the mucus was suctioned clear from the middle ear space. A Dura-Vent tube was placed through the incision followed by antibiotic drops. The right external auditory canal was cleaned and inspected. Tympanic membrane appeared healthy. Procedure was terminated at this point. Condition: stable Disposition: PACU Complications:: None
--- NOTE | 2023-09-18 09:46 | P.PNANES_ITS ---
[facility] Anesthesia Record Part I Anesthesia Record I Intake, IV Amount: 50 Hydration: Adequate Estimated blood loss (mL): 2 Urine output (mL): 0 Blood Pressure: 129/60 SaO2: 99 Pulse Rate: 67 Airway Patency: Patent Respiratory Rate: 24 Temperature: 97.7 F Patient is:: Drowsy Stable to PACU at:: 09:45
[2023-09-18 09:56] LABS: POC Glucose,Bedside 215 (70-110)
--- NOTE | 2023-09-18 13:23 | EXP.ANES.II ---
[facility] Anesthesia Record Part II Anesthesia Record Part II Discharge Time: 10:13 Destination: Surgical Day Care (OP Surgery) PACU nurse assessment reviewed?: Yes Patient Condition:: Good Anesthesia Complications:: None Swallowing reflex intact?: Yes Airway Patency: Patent Cyanosis?: No Blood Pressure: 119/61 SaO2: 95 Respiratory Rate: 18 Pulse Rate: 61 Temperature: 97.3 F Mental Status: Alert & Oriented Pain level:: 0 Nausea and/or vomitting:: None Intake, IV Amount: 0 Hydration: Adequate
== END 2023-09-18 10:44 | disposition home or self-care (01) ==
PROVIDERS: Nurse Practitioner; PCP Nurse Practitioner Family; Visit Provider Otolaryngology
PROC: (CPT 69436; principal; 2023-09-18 10:30)
DX: H65.22 Chronic serous otitis media, left ear (principal); E11.8 Type 2 diabetes mellitus with unspecified complications; Z79.84 Long term (current) use of oral hypoglycemic drugs; Z72.0 Tobacco use
CPT/HCPCS: 69436; 80048; 82962; 85025; 93005; J7120

== ENCOUNTER 2023-10-07 15:56 | Emergency (ER) | payer MEDICARE, MEDICAID, SELFPAY ==
[2023-10-07 16:00] VITALS: BP 170/65; PULSE 85; RESP 20; TEMP 37.2; O2SAT 97; BMI 31.6
--- NOTE | 2023-10-07 16:13 | ED_ITS ---
Discharge Plan Disposition Patient Disposition: Home, Self-Care Condition: Good Prescriptions Prescriptions: No Action hydroxyzine HCl 25 mg tablet See Rx Instructions .ROUTE .COMPLEX Qty: 90 0RF Dose Instruction: TAKE 1 TABLET BY MOUTH THREE TIMES DAILY Rx Instructions: TAKE 1 TABLET BY MOUTH THREE TIMES DAILY nitroglycerin 0.4 mg tablet, sublingual 0.4 mg sublingual Q5M PRN (Reason: chest pain) Qty: 25 4RF Rx Instructions: do not exceed 3 doses per episode aspirin 81 mg tablet,delayed release (DR/EC) See Rx Instructions .ROUTE .COMPLEX Qty: 90 0RF Dose Instruction: Take 1 tablet by mouth once daily Rx Instructions: Take 1 tablet by mouth once daily atorvastatin 40 mg tablet See Rx Instructions .ROUTE .COMPLEX Qty: 90 3RF Dose Instruction: TAKE 1 TABLET BY MOUTH AT BEDTIME Rx Instructions: TAKE 1 TABLET BY MOUTH AT BEDTIME lisinopril 10 mg tablet 10 mg PO DAILY Qty: 90 3RF Rx Instructions: Take 1 tablet by mouth once daily carvedilol 12.5 mg tablet 12.5 mg PO BID Qty: 180 3RF Rx Instructions: Take 1 tablet by mouth twice daily omeprazole 20 mg capsule,delayed release(DR/EC) 20 mg PO DAILY Qty: 90 3RF prednisone 50 mg tablet 50 mg PO DAILY 5 Days Qty: 5 0RF methocarbamol 750 mg tablet 750 mg PO Q8H PRN (Reason: pain) Qty: 20 0RF Referrals Follow up/Referrals: Sunny Barone APRN [Primary Care Provider] - See instructions Clinical Impressions Clinical Impression: Acute viral syndrome Instructions Patient Instructions: DI for COVID-19 (Suspected or Confirmed ) Print Language Print Language: Hungarian Discharge ED Provider: Shoshana Sandhu [facility] HPI General Stated complaint: covid,flu test Time Seen by Provider: 10/07/23 16:40 History of Present Illness Provider Complaint: Congestion, upset stomach, diarrea X 2 days. Requests covid/flu test. Onset (ago): day(s) Relieving factors: none Exacerbating factors: none Associated symptoms: denies other symptoms Treatments prior to arrival: none Related Data Previous Rx's ?Medication ?Instructions ?Recorded aspirin 81 mg tablet,delayed See Rx Instructions .Route 01/27/22 release .COMPLEX #90 tabs methocarbamol 750 mg tablet 750 mg PO Q8H PRN pain #20 tabs 03/20/23 hydroxyzine HCl 25 mg tablet See Rx Instructions .Route 05/04/23 .COMPLEX #90 tabs nitroglycerin 0.4 mg sublingual 0.4 mg sublingual Q5M PRN chest 05/04/23 tablet pain #25 tabs prednisone 50 mg tablet 50 mg PO DAILY 5 days #5 tabs 08/21/23 atorvastatin 40 mg tablet See Rx Instructions .Route 10/03/23 .COMPLEX #90 tabs carvedilol 12.5 mg tablet 12.5 mg PO BID #180 tabs 10/03/23 lisinopril 10 mg tablet 10 mg PO DAILY #90 tabs 10/03/23 omeprazole 20 mg capsule,delayed 20 mg PO DAILY #90 caps 10/03/23 release Allergies Allergy/AdvReac Type Severity Reaction Status Date / Time acetaminophen [From Percocet] AdvReac Verified 10/05/23 08:59 oxycodone [From Percocet] AdvReac Verified 10/05/23 08:59 [facility] Disclaimer: The information contained in this section may have been updated after the patient was seen, as this information can be updated by other users. Medical History Tobacco use Retracted tympanic membrane Fluid level behind tympanic membrane Mixed hearing loss mild to moderate mixed loss left ear per Audiometric SNHL (sensorineural hearing loss) mild to moderate predominantly SNHL right ear per Audiometric Chronic dysfunction of both eustachian tubes Hearing problem of left ear Sinusitis COPD (chronic obstructive pulmonary disease) Diabetes HLD (hyperlipidemia) HHD (hypertensive heart disease) CAD (coronary artery disease) Surgical History History of left hip replacement History of right hip replacement Family History Other Family history of myocardial infarction Hypertension Social History Smoking Status: Current every day smoker tobacco type: cigarettes packs per day: 1 second hand exposure: Yes alcohol intake: never substance use type: denies use current occupational status: disabled Travel in the last 8 weeks: None household members: spouse housing: house current occupational exposures/hazards: No caffeine: No ROS Obtained: Yes All systems reviewed & no additional complaints except as documented Constitutional Constitutional: Reports body ache and Reports chills ENT Ears, Nose, Mouth, and Throat: Reports nasal congestion Gastrointestinal Gastrointestingal: Reports loose stools Physical Exam General General appearance: alert and in no apparent distress Head Head exam: atraumatic, normocephalic and normal inspection Eye Eye exam: Present normal appearance, PERRL and EOMI ENT ENT exam: Present normal exam, normal oropharynx, mucous membranes moist, TM's normal bilaterally and normal external ear exam Neck Neck exam: Present normal inspection, full ROM and trachea midline; Absent meningismus or lymphadenopathy Chest Chest inspection: Present normal inspection and symmetric chest wall rise; Absent tenderness Respiratory Respiratory exam: Present normal lung sounds bilaterally; Absent respiratory distress Cardiovascular Cardiovascular exam: Present regular rate and normal rhythm; Absent JVD Abdominal Exam Abdominal exam: Present soft and normal bowel sounds; Absent distention, tenderness or guarding Extremities Exam Extremities exam: Present normal inspection, full ROM and normal capillary refill; Absent calf tenderness Back Exam Back exam: Present normal inspection; Absent tenderness Neurological Exam Neurological exam: Present alert and oriented X3 Psychiatric Psychiatric exam: Present normal affect and normal mood Skin Skin exam: Present warm, dry, intact and normal color Lymphatic Lymphatic Findings: no adenopathy Medical Decision Making Lopez Inquiry Pt receiving controlled substance: No Orders (Tests/Meds): ORDERS Category Date Time Status Covid-19 Nasal PCR ([facility]) Routine Lab 10/07/23 16:05 Received
[2023-10-07 16:55] VITALS: BP 170/65; PULSE 85; RESP 20; TEMP 37.2; O2SAT 97
== END 2023-10-07 16:58 | disposition home or self-care (01) ==
PROVIDERS: Emergency Provider Physician Assistant; PCP Nurse Practitioner Family
DX: U07.1 COVID-19 (principal); R19.7 Diarrhea, unspecified; R11.0 Nausea; R09.81 Nasal congestion
CPT/HCPCS: 87635; 99212; 99213; G0463

== ENCOUNTER 2023-10-31 13:00 | Outpatient (CLI) | payer MEDICARE, MEDICAID, SELFPAY | END 2023-10-31 23:59 | disposition home or self-care (01) | LOC: RAD 04-05 08:00 | PROVIDERS: PCP Nurse Practitioner Family; Visit Provider Physician Assistant | DX: S54.00XA Injury of ulnar nerve at forearm level, unspecified arm, initial encounter (principal) ==

== ENCOUNTER 2023-12-14 09:07 | Outpatient (CLI) | payer MEDICARE, MEDICAID, SELFPAY ==
--- NOTE | 2023-12-14 09:11 | CA_ITS ---
APPROVED REPORT EXAM: Comprehensive 2D, Doppler, and color-flow Echocardiogram Mobile Equipment Mechanic: Nela Figueroa RVT Ht: 5 ft 9 in Wt: 206lbs BSA: 2.09 BP: 146/61 mmHg Indications: DYSPENA,CAD,SMOKER,COPD,CP 2D Dimensions LA Volume 34.70 mL LA Volume Index 16.60 mL/m2 (M/F) 16-34 M-Mode Dimensions RVDd 2.45 cm (0.9-2.6) LA Diam 3.79 cm (1.9-4.0) LVDd 4.74 cm (3.5-5.7) LVDs 2.93 cm (3.5-5.7) IVSd 1.20 cm (0.6-1.1) PWd 0.96 cm (0.6-1.1) EF (Teich) 68.40% FS 38.20% EDV (Teich) 104.40 mL TAPSE 2.68 (<1.7) ESV (Teich) 33.00 mL LV Diastology E Decel Time 213 (160-240 msec) E/A Ratio 1.1 Aortic Valve MICHAEL Index 1.67 cm2/m2 AoV Peak Brice. 140.0 (50-130 cm/s) AO Peak GR. 7.80 mmHg AO Mean GR. 4.10 (<5 mmHg) AO VTI 29.4 (18-25 cm) MICHAEL (VTI) 3.58 (2.5-4.5 cm2) Mitral Valve MV E Max Brice. 69.0 (40-130 cm/s) MV A Velocity 61.0 (40-130 cm/s) E/A Ratio 1.13 MV PHT 62.0 ms Pulmonary Valve PV Peak Velocity 82.0 (50-150 cm/s) Tricuspid Valve TR P. Velocity 200.00 cm/s RAP Estimate 10.00 mmHg RVSP 26.00 mmHg Left Ventricle The left ventricle is normal size. The left ventricular systolic function is normal. The left ventricular ejection fraction is within the normal range. There is increased LV wall thickness. There is normal LV segmental wall motion. The left ventricular diastolic function is normal. The LVEF is 55%. Right Ventricle The right ventricle is mildly dilated. The right ventricular systolic function is low normal. Atria The left atrium size is normal. The right atrium size is normal. There is no Doppler evidence of interatrial shunt. Aortic Valve The aortic valve is mildly thickened. There is no aortic valvular stenosis. No aortic regurgitation is present. Mitral Valve The mitral valve is normal in structure. No evidence of mitral valve stenosis. Trace mitral regurgitation. Tricuspid Valve The tricuspid valve leaflets are thin and pliable. Trace tricuspid regurgitation. There is insufficient TR jet to estimate RVSP. Pulmonic Valve The pulmonary valve is normal in structure. Trace pulmonic regurgitation. Great Vessels The aortic root is normal in size. The ascending aorta is not well-visualized. The IVC is normal in size and collapses >50% with inspiration. Pericardium There is no pericardial effusion. Conclusion Normal LV systolic function. Mildly dilated RV with low normal RV function. No significant valvular stenosis or regurgitation. Electronically signed by : Nadege Lane MD 12/18/2023 00:05:35
== END 2023-12-14 23:59 | disposition home or self-care (01) ==
PROVIDERS: PCP Nurse Practitioner Family; Visit Provider Nurse Practitioner
DX: R06.09 Other forms of dyspnea (principal); I51.7 Cardiomegaly
CPT/HCPCS: 93306

== ENCOUNTER 2024-06-08 08:01 | Outpatient (CLI) | payer MEDICARE, MEDICAID, SELFPAY ==
[2024-06-08 08:28] LABS: Basophils # 0.1 K/mm3 (0-0.2); Basophils % 0.8 % (0.1-2.0); Eosinophils # 0.3 K/mm3 (0.0-0.4); Eosinophils % 3.8 % (0.1-12.0); Hematocrit 48.7 % (42.0-52.0); Hemoglobin 17.1 g/dL (14.1-18.0); Lymphocytes # 2.3 K/mm3 (0.7-4.5); Lymphocytes % 32.1 % (10-50); Mean Corpuscular HGB Conc 35.1 g/dL (31.8-35.4); Mean Corpuscular Hemoglobin 32.8 pg (27.0-31.2); Mean Corpuscular Volume 93.3 fl (80-94); Monocytes # 0.5 K/mm3 (0.1-1.0); Monocytes % 7.5 % (1.7-9.3); Neutrophils % 55.5 % (37.0-80.0); Platelet Count 154 K/mm3 (142-424); Red Blood Count 5.22 M/mm3 (4.60-6.20); Red Cell Distribution Width 12.5 % (11.5-17.5); White Blood Count 7.2 K/mm3 (4.8-10.8)
[2024-06-08 09:33] LABS: Alanine Aminotransferase 39 U/L (12-78); Albumin Level 4.2 g/dl (3.5-5.0); Alkaline Phosphatase 62 U/L (38-126); Anion Gap 14.5 mEq/L (5-15); Aspartate Amino Transferase 39 U/L (17-59); Bilirubin,Direct 0.2 mg/dl (0.0-0.4); Bilirubin,Indirect 0.6 mg/dL (0.0-0.9); Bilirubin,Total 0.8 mg/dl (0.2-1.3); Bilirubin,Unconjugated 0.6 mg/dL (0.0-1.1); Blood Urea Nitrogen 4 mg/dl (9-20); Calcium 9.7 mg/dl (8.4-10.2); Carbon Dioxide 27 mmol/L (22.0-30.0); Chloride 101 mmol/L (98-107); Chol/HDL Ratio 2.8 (1-3.5); Cholesterol 108 mg/dl (140-200); Estimated Glomerular Filt Rate 87 ml/min (>60); GFR (African American) 105 ML/MIN (>60); Glucose 187 mg/dl (74-100); HDL Cholesterol 39 mg/dl (40-60); Potassium 4.5 mmoL/L (3.5-5.1); Sodium 138 mmol/L (136-145); Total Protein,Serum 6.8 g/dl (6.3-8.2); Triglycerides 189 mg/dl (30-150); VLDL Cholesterol 38 mg/dL (0-40)
[2024-06-08 09:44] LABS: Direct LDL Cholesterol 37.86 mg/dL (100-129)
[2024-06-08 09:49] LABS: Free T4 (Free Thyroxine) 1.29 ng/dl (0.78-2.19)
[2024-06-08 10:04] LABS: Thyroid Stimulating Hormone 1.84 uIU/mL (0.465-4.68)
[2024-06-08 10:26] LABS: Hemoglobin A1C 6.9 % (4.0-6.0)
== END 2024-06-08 23:59 | disposition home or self-care (01) ==
LOC: LAB 08:02
PROVIDERS: PCP Nurse Practitioner Family; Visit Provider Nurse Practitioner
DX: R40.0 Somnolence (principal); I65.23 Occlusion and stenosis of bilateral carotid arteries; R06.02 Shortness of breath; I10 Essential (primary) hypertension; E78.2 Mixed hyperlipidemia; I25.10 Atherosclerotic heart disease of native coronary artery without angina pectoris; I11.9 Hypertensive heart disease without heart failure; R73.03 Prediabetes
CPT/HCPCS: 36415; 80048; 80061; 80076; 83036; 84439; 84443; 85025

== ENCOUNTER 2025-01-16 13:56 | Outpatient (CLI) | payer MEDICARE, MEDICAID, SELFPAY ==
--- NOTE | 2025-01-16 14:01 | XR_ITS ---
FINAL REPORT CLINICAL HISTORY: LBP, more on the right side-per pt. FINDINGS: AP, lateral, and oblique views of the lumbar spine were obtained. There is no acute fracture or acute malalignment. Vertebral body height is preserved. There is mild degenerative disc disease. No acute paraspinal abnormality is identified. IMPRESSION: Mild degenerative disc disease. Reviewed, Interpreted and Dictated by Margaux Brewer MD Transcribed by Sridevi Balderrama Authenticated and [facility]
--- OUTSIDE RECORDS SUMMARY | 2025-01-16 14:02 | XMS_ITS | Continuity of Care Document ---
Author Organization [employer] Address [address] [place] [address] Care Team Providers Care Dry Mop Maker Name Role Phone SHOSHANA SANDHU Primary Care Provider STORM Case Die Sinker Assessment No assessment recorded. Plan of Treatment Reminders Order Date Submit Date Provider Last Modified By Organization Details Last Modified Time Details Appointments FOLLOW UP 30 2024 01:00P M Shoshana Sandhu PA-C Not available Not available Not available Lab None recorded . Referral None recorded . Procedures None recorded . Surgeries None recorded . Imaging None recorded . Medication Orders None recorded . Patient TargetsNo targets recorded. Patient InstructionsNo instructions recorded. Reason for Referral None Reported. Problems Name Problem SNOMED Code Status Onset Date Resolution Date Notes Provider Name and Address Organization Details Recorded Time Hyperlipidemia 00354626 Active 2024 PERFECTO Bland [address] [place] [address], [address] 8, [employer] 5 17:40:34 Essential hypertension 52068108 Active 2024 PERFECTO Bland [address] [place] [address], 03388-123 8, [employer] 5 17:40:24 Gastroesophage al reflux disease without esophagitis 696314284 Active 2024 PERFECTO Bland [address] [place] [address], 85070-549 8, [employer] 5 17:40:27 Chronic sinusitis 76018985 Active 2024 PERFECTO Bland [address] [place] [address], 93940-722 8, [employer] 17:40:36 Chronic kidney disease 662348508 Active 2024 PERFECTO Bland [address] [place] [address], 34569-493 8, [employer] 17:40:20 Urine microalbumin detected 169157681 Active 2024 PERFECTO Bland [address] [place] [address], 16[address]-971 8, [employer] 17:40:30 Vitamin D deficiency 09445993 Active 2024 PERFECTO Bland [address] [place] [address], 111[address]-611 8, [employer] 17:42:07 Type 2 diabetes mellitus without complication 484617284 Active 2024 PERFECTO Bland [address] [place] [address], 92376-223 8, [employer] 09:13:35 Spasm of back muscles 569075046 Active 2024 PERFECTO Bland [address] [place] [address], 69[address]-789 8, [employer] 17:07:45 Low back pain 421057931 Active 2024 PERFECTO Bland [address] [place] [address], 15[address]-335 8, [employer] 13:30:37 Problem Notes None recorded. Procedures Surgical History Date Name Laterality Status Provider Name and Address Organization Details Recorded Time Diabetic Foot Screen completed PERFECTO Bland [address] [place] [address], [address], [employer] 05/13/2024 14:20:35 Hip Replacement completed [employer] 03/15/2024 15:11:13 Stent completed [employer] 03/15/2024 15:11:20 Imaging Results None recorded. Procedure Notes None recorded. Medical Equipment None Reported. Allergies Allergen ID Allergen Name Allergen Category Reaction Reaction Severity Criticality Documentation Date Start Date Code Code System Note Provider Name and Address Organization Details Recorded Time 36506 acetamino phen / oxycodone medicatio n Not available Not available Not available 03/15/2024 39230 3 RxNorm Elisa Vice null, [employer] 5 15:07:41 42330 metformin medicatio n Not available Not available Not available 05/16/2024 6809 RxNorm Elisa Vice null, [employer] 5 09:05:31 Medications Name Sig Start Date Stop Date Status Note LastModified by Organization Details LastModified Time vitamin d3 (juaquin) 50mcg cap TAKE 1 CAPSULE BY MOUTH ONCE DAILY 03/15 completed Not Available Not Available Not Available cyclobenzap rine 10 mg tablet TAKE 1 TABLET BY MOUTH THREE TIMES DAILY NEEDED FOR 10 DAYS active Not Available Not Available No t Available amoxicillin 500 mg capsule TAKE 1 CAPSULE BY MOUTH THREE TIMES DAILY 03/15 completed Not Available Not Available Not Available atorvastati n 40 mg tablet TAKE 1 TABLET BY MOUTH AT BEDTIME active Not Available Not Available No t Available carvedilol 12.5 mg tablet TAKE 1 TABLET BY MOUTH TWICE DAILY active Not Available Not Available No t Available triazolam 0.25 mg tablet TAKE 1 TABLET BY MOUTH ONCE DAILY NEEDED FOR SLEEP 03/15 completed Not Available Not Available Not Available alprazolam 1 mg tablet TAKE 1 TABLET BY MOUTH ONE HOUR BEFORE APPOINTME NT active Not Available Not Available No t Available hydrocodone 5 mg-acetamin ophen 325 mg tablet TAKE 1 TABLET BY MOUTH EVERY 4 HOURS NEEDED FOR PAIN 03/15 completed Not Available Not Available Not Available meloxicam 15 mg tablet TAKE 1 TABLET BY MOUTH ONCE DAILY FOR 10 DAYS active Not Available Not Available No t Available prednisone 20 mg tablet Take 1 tablet twice a day by oral route for 5 days. 2024 active Not Available Not Available Not Avai lable Space Chamber USE DIRECTED WITH INHALERS active Not Available Not Available No t Available methocarbam ol 750 mg tablet TAKE 1 TABLET BY MOUTH EVERY 8 HOURS 03/15 completed Not Available Not Available Not Available lisinopril 10 mg tablet TAKE 1 TABLET BY MOUTH ONCE DAILY active Not Available Not Available No t Available prednisone 50 mg tablet TAKE 1 TABLET BY MOUTH ONCE DAILY FOR 5 DAYS 03/15 completed Not Available Not Available Not Available omeprazole 20 mg capsule,del ayed release TAKE 1 CAPSULE BY MOUTH ONCE DAILY active Not Available Not Available No t Available montelukast 10 mg tablet TAKE 1 TABLET BY MOUTH DAILY AT BEDTIME 01/14 completed Not Available Not Available Not Available hydroxyzine HCl 25 mg tablet TAKE 1 TABLET BY MOUTH THREE TIMES DAILY active Not Available Not Available No t Available ergocalcife rol (vitamin D2) 1,250 mcg (50,000 unit) capsule Take 1 capsule every week by oral route for 90 days, for Vitamin D deficienc y. 01/14 completed Not Available Not Available Not Available azelastine 137 mcg (0.1 %) nasal spray 05/13 completed Not Available Not Available Not Available methylpredn isolone 4 mg tablets in a dose pack 03/15 completed Not Available Not Available Not Available albuterol sulfate HFA 90 mcg/actuati on aerosol inhaler INHALE 2 PUFFS BY MOUTH EVERY 4 TO 6 HOURS NEEDED FOR COUGH WHEEZING, CHEST TIGHTNESS OR SHORTNESS OF BREATH active Not Available Not Available No t Available naproxen 500 mg tablet TAKE 1 TABLET BY MOUTH EVERY 12 HOURS NEEDED FOR PAIN 03/15 completed Not Available Not Available Not Available Lyrica 75 mg capsule Take 1 capsule 3 times a day by oral route for 7 days. 2024 active Not Available Not Available Not Avai lable cholecalcif navneet (vitamin D3) 1,250 mcg (50,000 unit) capsule TAKE 1 CAPSULE BY MOUTH ONCE A WEEK 03/15 completed Not Available Not Available Not Available Xyzal 5 mg tablet Take 1 tablet every day by oral route in the morning for 90 days. 2024 active Not Available Not Available Not Avai lable cholecalcif navneet (vitamin D3) 50 mcg (2,000 unit) capsule Take 1 capsule every day by oral route for 90 days. 01/14 completed Not Available Not Available Not Available Jardiance 10 mg tablet TAKE 1 TABLET BY MOUTH ONCE DAILY active Not Available Not Available No t Available Kerendia 20 mg tablet Take 1 tablet every day by oral route for 90 days. 2024 active Not Available Not Available Not Avai lable aspirin 81 mg capsule Take 1 capsule every day by oral route. active Not Available Not Available No t Available Ozempic 0.25 mg or 0.5 mg (2 mg/3 mL) subcutaneou s pen injector Inject 0.25 mg every week by subcutane ous route for 28 days, for diabetes. 01/14 completed Not Available Not Available Not Available Vitals Date Recorded Body height Body mass index (BMI) Body weight Heart rate Oxygen saturation Oxygen saturation in Arterial blood by Pulse oximetry Body temperature Systolic And Diastolic Systolic And Diastolic Provider Name and Address Organization Details Last Updated DateTime 175.26 cm 29.5 kg/m2 57500.0 4 g 76 /min 94 % 94 % 98.1 [degF] 170/68 mm[Hg] 164/70 mm[Hg] Elisa Pascal [employer] 17:21:53 Social History Question Answer Notes LastModified by [employer] Details LastModified Time Tobacco Smoking Status Current Every Day Smoker Elisa Pascal [employer], [employer] 03/15/2024 14:58:20 Do You Have An Advance Directive? No Information not available 03/15/2024 Is Your Home Air Conditioned? Yes Information not available 03/15/2024 How Many Years Have You Consumed Alcohol? 12 Information not available 03/15/2024 Do You Wear A Helmet When Biking? No Information not available 03/15/2024 Are You Blind Or Do You Have Difficulty Seeing? No Information not available 03/15/2024 What Is Your Level Of Caffeine Consumption? None Information not available 03/15/2024 Are You A Caregiver? No Information not available 01/03/2025 What Type Of Channeling Machine Runner Do You Use? None Information not available 03/15/2024 Have You Been To An Area Known To Be High Risk For COVID-19? No Information not available 03/15/2024 Are You Deaf Or Do You Have Serious Difficulty Hearing? No Information not available 03/15/2024 What Type Of Diet Are You Following? REGULAR Information not available 03/15/2024 What Is The Highest Grade Or Level Of School You Have Completed Or The Highest Degree You Have Received? [id number] Information not available 01/03/2025 Have There Been Any Changes To Your Family Or Social Situation? No Information no t available 03/15/2024 Are There Any Guns Present In Your Home? No Information not available 03/15/2024 Which Of Your Hands Is Dominant? Left Information not available 03/15/2024 Do You Engage In Moderate/heavy Exercise (e.g. Brisk Walk, Jogging, Strength Training, Etc)? No Information not available 01/03/2025 What Is Your Home Situation? Other Information not available 03/15/2024 Do You Have A Medical Power Of Coil Winder? No Information not available 03/15/2024 What Was The Date Of Your Most Recent Tobacco Screening? 01/16/2025 Information not available 01/16/2025 Do You Have Any Pets? No Information not available 03/15/2024 Do You Use Protection During Sex? No Information not available 03/15/2024 What Is Your Relationship Status? Information not available 03/15/2024 Have You Repeated Any Grades? No Information not available 03/15/2024 Do You Wear A Seatbelt When Driving Or As A Passenger? Yes Information not available 01/03/2025 Do You Use Your Seat Belt Or Car Seat Routinely? Yes Information not available 03/15/2024 Are You Sexually Active? Yes Information not available 03/15/2024 Do You Have Any Siblings? 6 Information not available 03/15/2024 Do You Have Smoke And Carbon Monoxide Detectors In Your Home? Yes Information not available 03/15/2024 At What Age Did You Start Smoking Tobacco? 13 Information not available 03/15/2024 Are You Passively Exposed To Smoke? No Information no t available 03/15/2024 Are There Any Smokers In Your House? Yes Information not available 03/15/2024 How Much Tobacco Do You Smoke? 2 PPD Information not available 03/15/2024 Do You Participate In Social Media? No Information not available 03/15/2024 What Types Of Sporting Activities Do You Participate In? Na Information not available 03/15/2024 Do You Use Sunscreen Routinely? No Information not available 03/15/2024 Has Tobacco Cessation Counseling Been Provided? Yes Information not available 03/15/2024 On What Date Was Tobacco Cessation Counseling Provided? 01/16/2025 Information not available 01/16/2025 How Many Years Have You Smoked Tobacco? 40 Information not available 03/15/2024 Have You Recently Traveled Abroad? No Information not available 03/15/2024 Do You Have Difficulty Walking Or Climbing Stairs? No Information not available 03/15/2024 Are You Currently In School? No Information not available 03/15/2024 Do You Feel Safe In Your Home? Yes Information not available 01/03/2025 Do You Have Any Dietary Restrictions? No Information not available 03/15/2024 How Many Days In The Past Year Have You Consumed 5 Or More Drinks? 4 Information no t available 03/15/2024 Sex: Unknown Functional Status Question Answer Note LastModified by Organizat ion Details LastModified Time Do you use any illicit or recreational drugs? No Information not available 03/15/2024 Do you or have you ever used any other forms of tobacco or nicotine? No Information not available 03/15/2024 What is your level of alcohol consumption? Moderate Information not available 03/15/2024 Are you currently employed? No Information not available 03/15/2024 Do you have transportation difficulties? No Information not available 03/15/2024 Are you able to walk independently without assistance or assistive devices? YESWOREST Information not available 03/15/2024 Do you have difficulty doing errands alone? No Information not available 03/15/2024 Are you able to care for yourself independently? Yes Information not available 03/15/2024 Do you have difficulty dressing, bathing, grooming, or toileting? No Information not available 03/15/2024 What is your exercise level? None Information not available 03/15/2024 Mental Status Question Answer Note LastModified by Organizat ion Details LastModified Time Do you feel stressed (tense, restless, nervous, or anxious, or unable to sleep at night)? [id number] Information not available 03/15/2024 Do you have difficulty concentrating, remembering or making decisions? No Information no t available 03/15/2024 Are you or have you been involved with bullying? No Information not available 03/15/2024 Family History Relationship Description Onset Age of this Age Resolved Age Notes LastModified by Organization Details LastModified Time Mother Heart disease Not available 2024 15:09:40 Mother Kidney disease Not available 2024 15:09:53 Mother Malignant neoplasm of breast Not available 2024 15:10:05 Father Heart disease Not available 2024 15:09:44 Father Kidney disease Not available 2024 15:09:57 Medical History Condition Response Coronary Artery Disease N Gout N Other N Blood Diseases N Kidney Stones N Hyperthyroidism N Breast Cancer N Blood Transfusion N Emergency room visit since last appointm ent. N Hypothyroidism N Lung Disease N Dermatologic Disorders N Depression N COPD N Defects or Inherited Disease N Developmental or Behavioral Disorders N Breast Problem N Difficulty Swallowing N Anesthesia Complications N History of STI N Meniere's disease N Anxiety Disorder N Muscle, Joint, or Bone Problems N Autoimmune disease N Vision or Eye Problems N Arthritis N Polyps N Infertility N Mental Disorder N Congenital Anomalies N Acid Reflux (GERD) Y Cancer N Stroke N Neurologic/Epilepsy N Endometriosis N Bladder or Kidney Problems N High Cholesterol Y Liver Disease N Organ Transplant N Psychiatric/Mental Health Condition N Fibromyalgia N Dialysis N Schizophrenia N Headaches N Kidney Disease N Allergies/Hayfever Y Heart Problems N Ear or Hearing Problems N Hospitalizations N Learning Disorder N Artificial Joints N Thyroid Problems N GI Problems N Acne N ADD/ADHD N Eating Disorder N Anemia N Constipation N Mental Illness N Ovarian Cancer N Diabetes Y Bedwetting N Hepatitis/Liver Disease N Tuberculosis N Eczema N Diverticulitis N Abuse/Domestic Violence N Asthma N Trauma/Violence N Substance Abuse N Reflux/GERD Y Depression/ depression N Hepatitis N Heart Disease N Pulmonary Embolism N Tourette Syndrome N Chronic Ear Infections N Pre-Eclampsia N Hypertension Y Chicken Pox N Autism Spectrum Disorder (ASD) N Osteoporosis N Thrombophilias N Immunizations Vaccine Type Date Status Note Provider Nam e and Address Organization Details Recorded Time RSV, recombinant, protein subunit RSVpreF, adjuvant reconstituted, 0.5 mL, PF 01/03/2025 completed Elisa Vice null, [employer] 01/03/2025 17:24:12 Tdap 03/14/2018 completed Elisa Vice null, [employer] 03/15/2024 15:02:20 Hep A, adult 03/14/2018 completed Elisa Vice null, [employer] 03/15/2024 15:02:20 Past Encounters Encounter ID Performer Location Encounter Start Date Encounter Closed Date Diagnosis/Indication Diagnosis SNOMED-CT Code Diagnosis ICD10 Code Diagnosis IMO Codes Diagnosis Note [id number] PERFECTO Bland [facility] [address] [address] 01/03/2025 16:41:41 01/03/2025 17:09:01 Requires respiratory syncytial virus vaccination 663893155 Z29.11 [id number] Goals Section Goal Description Progress Status Start Date LastModified by Organization Details LastModified Time Medication Regimen Follows medication regimen as per care team recommendati on(s) None active 2024 Storm Cortez Information not available 05/21/2024 15:12:38 Blood Glucose Maintains blood glucose within target range None active 2024 Storm Cortez Information not available 05/21/2024 14:50:33 Diet Adherence Follows prescribed or recommended diet None active 2024 Storm Cortez Information not available 05/21/2024 14:50:33 Follow-up Appointment( s) Attends referral and/or follow-up appointment( s) as per care team recommendati on(s) None active 2024 Storm Cortez Information not available 05/21/2024 14:50:33 Blood Pressure Maintains blood pressure goal as defined by care team None active 2024 Storm Cortez Information not available 05/21/2024 14:50:34 Health Concerns Section Related Observation LastModified by Organization Detai ls LastModified Time None Recorded Concern Status LastModified by Organization Details LastModified Time Essential hypertension Active Storm Cortez Not Available 05/21/2024 15:12 :38 Chronic kidney disease Active Storm Cortez Not Available 05/21/2024 15:12 :38 Type 2 diabetes mellitus without complication Active Storm Cortez Not Available 05/21/2024 15:12 :38 Payers Encounter Date Sequence Insurance Name Policy Number Policy Muro Covered Member ID Muro Member ID Guarantor Name 01/03/2025 2 [place] [employer] - FFS/TRADITION AL Tyler Sandra [id number] Tyler Sandra 01/03/2025 1 [facility] (MEDICARE REPLACEMENT/A DVANTAGE - PPO) [facility] Tyler Sandra [id number] Tyler Sandra Notes Date Note Type Note Provider Name and Address Organization Details Recorded Time 01/03/2025 text/html Patient presents for RSV vaccine PERFECTO Bland [address] [place] [address], [phone], [facility] [employer] 01/03/2025 17:14:34
--- OUTSIDE RECORDS SUMMARY | 2025-01-16 14:02 | XMS_ITS | Data Portability ---
Author Organization [facility]., [facility] Address [address] [place] [address] Care Team Providers Care Hands And Dial Inspector Name Role Phone SHOSHANA SANDHU Primary Care Provider LARISA Case Sales Agent Business Services Assessment No assessment recorded. Plan of Treatment Reminders Order Date Submit Date Provider Last Modified By Organization Details Last Modified Time Details Appointments FOLLOW UP 30 2024 01:00P Suni Sandhu PA-C Not available Not available Not available Lab HbA1c (hemoglob in A1c), blood [address], [address] [place], [address], 01/14/2025 17:08:11 microalbu min/creat inine, mass ratio, urine [address], [address] [place], [address], 01/14/2025 17:08:11 lipid panel, serum 2024 025 [facility] ([place] [place], [address], 05/14/2024 12:08:30 testoster one, total, serum 2024 025 DARIEN [facility] ([place] [place]), [address] [place], [address], 05/14/2024 12:08:32 PSA, total, serum or plasma 2024 025 [facility] ([place] [facility]), [address] [place], [address], 05/14/2024 12:08:34 CMP, serum or plasma 2024 025 [facility] ([facility]), [address] [place], [address], 05/14/2024 12:08:29 CBC w/ auto diff 2024 025 [facility] ([facility]), [address] [place], [address], 05/14/2024 12:08:29 vitamin D, 25-hydrox y, total, serum 2024 025 [facility] ([facility]), [address] [place], [address], 05/14/2024 12:08:33 TSH, ultra-sen sitive, serum 2024 025 [facility] ([facility]), [address] [place], [address], 05/14/2024 12:08:32 microalbu min/creat inine, mass ratio, urine [id number] [place] [address], [address] [facility], [place], [address], 05/13/2024 09:19:10 Hepatitis C IgG Ab, qual, serum 2024 025 [facility] ([facility]), [address] [place], [address], 05/14/2024 12:08:31 HIV 1 + 2, meaningfu l use set 2024 025 [facility] ([facility]), [address] [place], [address], 05/14/2024 12:08:33 HbA1c (hemoglob in A1c), blood 2024 [facility], [address] [facility], [place], [address], 03/15/2024 15:24:41 Referral site inspector referral - first available appt 2024 JIGNA Sharpe MD, [address] [facility] [address], [place], [address], 04/02/2024 13:39:46 Procedures None recorded. Surgeries None recorded. Imaging None recorded. Medication Orders cyclobenz aprine 10 mg tablet 2024 025 [facility] 5[facility], [address], [address], 01/14/2025 17:11:00 meloxicam 15 mg tablet 2024 025 [facility], [address], [address], 01/14/2025 17:10:59 Xyzal 5 mg tablet 2024 025 [email or web address] [facility]), [address] [facility], [address], [place], [place], [id number], 01/14/2025 17:08:10 Kerendia 20 mg tablet 2024 025 JIGNA [facility] ([facility]), [address] [facility], [address], [place], [place], [id number], 05/13/2024 09:01:45 Xyzal 5 mg tablet 2024 025 JIGNA [facility] ([facility]), [address] [facility], [address], [place], [place], [id number], 01/14/2025 16:50:53 Singulair 10 mg tablet 2024 025 [facility] ([facility]), [address] [facility], [address], [place], [place], [id number], 01/14/2025 16:48:11 Patient TargetsNo targets recorded. Patient Instructions Encounter Date Encounter Id Patient Instructions Last Modified By Organization Details Last Modified Time 03/15/2024 [id number] high blood pressure: care instructions Not available 03/15/2024 15:33:27 learning about high blood pressure [email or web address] Not available 03/15/2024 15:33:27 type 2 diabetes: care instructions [email or web address] Not available 03/15/2024 15:22:11 chronic sinusitis: care instructions [email or web address] Not available 03/15/2024 15:33:27 high cholesterol : care instructions [email or web address] Not available 03/15/2024 15:33:27 body mass index: care instructions [email or web address] Not available 03/19/2024 13:16:28 learning about healthy weight [email or web address] Not available 03/19/2024 13:16:28 05/13/2024 [id number] type 2 diabetes: care instructions [email or web address] Not available 05/13/2024 09:19:10 HIV testing: car e instructions [email or web address] Not available 05/13/2024 09:32:19 01/14/2025 [id number] learning about type 2 diabetes [email or web address] Not available 01/14/2025 17:08:10 type 2 diabetes: care instructions [email or web address] Not available 01/14/2025 17:08:10 Reason for Referral [place] Clerk Referral for Chron ic sinusitis first available appt Referring Physician: Shoshana Sandhu, Family Medicine, Encounter Date: 03/15/2024 Results Created Date Observation Date Name Description Value Unit Range Abnormal Flag Note LastModifiedBy Organization Detail LastModifiedTime 03/15/19 25 03/15/2024 HbA1c (hemo globi n A1c), blood HbA1c 7.2 % Not Available [facility] [address] [facility], [place], [address], 03/15/2024 15:15:06 05/14/19 25 05/14/2024 CBC WITH DIFFE RENTI AL/PL ATELE T WBC 9.7 x10e3 /uL 3.4-10 .8 normal Not Available [facility] ([facility]) [address] [place], [address], 05/14/2024 12:08:28 05/14/19 25 05/14/2024 CBC WITH DIFFE RENTI AL/PL ATELE T RBC 5.50 x10e6 /uL 4.14-5 .80 normal Not Available [facility] ([facility]) [address] [place], [address], 05/14/2024 12:08:28 05/14/19 25 05/14/2024 CBC WITH DIFFE RENTI AL/PL ATELE T hemoglobin 17.8 g/dL 13.0-1 7.7 above high normal Not Available [facility] ([facility]) [address] [place], [address], 05/14/2024 12:08:28 05/14/19 25 05/14/2024 CBC WITH DIFFE RENTI AL/PL ATELE T hematocrit 53.6 % 37.5-5 1.0 above high normal Not Available [facility] ([facility]) [address] [place], [address], 05/14/2024 12:08:28 05/14/19 25 05/14/2024 CBC WITH DIFFE RENTI AL/PL ATELE T MCV 98 fL 79-97 above high normal Not Available [facility] ([facility]) [address] [place], [address], 05/14/2024 12:08:28 05/14/19 25 05/14/2024 CBC WITH DIFFE RENTI AL/PL ATELE T MCH 32.4 pg 26.6-3 3.0 normal Not Available [facility] ([facility]) [address] [facility] [place], [address], 05/14/2024 12:08:28 05/14/19 25 05/14/2024 CBC WITH DIFFE RENTI AL/PL ATELE T MCHC 33.2 g/dL 31.5-3 5.7 normal Not Available [facility] ([facility]) [address] [facility], [place], [address], 05/14/2024 12:08:28 05/14/19 25 05/14/2024 CBC WITH DIFFE RENTI AL/PL ATELE T RDW 12.8 % 11.6-1 5.4 Not Available [facility] ([facility]) [address] [place], [address], 05/14/2024 12:08:28 05/14/19 25 05/14/2024 CBC WITH DIFFE RENTI AL/PL ATELE T platelets 180 x10e3 /uL 150-45 0 normal Not Available [facility] ([facility]) [address] [facility], [place], [address], 05/14/2024 12:08:28 05/14/19 25 05/14/2024 CBC WITH DIFFE RENTI AL/PL ATELE T neutrophils 55 % not estab. normal Not Available [facility] ([facility]) [address] [place], [address], 05/14/2024 12:08:28 05/14/19 25 05/14/2024 CBC WITH DIFFE RENTI AL/PL ATELE T lymphs 34 % not estab. normal Not Available [facility] ([facility]) [address] [place], [address], 05/14/2024 12:08:28 05/14/19 25 05/14/2024 CBC WITH DIFFE RENTI AL/PL ATELE T monocytes 6 % not estab. normal Not Available [facility] ([facility]) [address] [place], [address], 05/14/2024 12:08:28 05/14/19 25 05/14/2024 CBC WITH DIFFE RENTI AL/PL ATELE T eos 3 % not estab. normal Not Available [facility] ([facility]) [address] [facility], [place], [address], 05/14/2024 12:08:28 05/14/19 25 05/14/2024 CBC WITH DIFFE RENTI AL/PL ATELE T basos 1 % not estab. normal Not Available [facility] ([facility]) [address] [place], [address], 05/14/2024 12:08:28 05/14/19 25 05/14/2024 CBC WITH DIFFE RENTI AL/PL ATELE T immature cells ASSOCIATE MATERIAL HANDLER Not Available [facility] ([facility]) [address] [place], [address], 05/14/2024 12:08:28 05/14/19 25 05/14/2024 CBC WITH DIFFE RENTI AL/PL ATELE T neutrophils (absolute) 5.5 x10e3 /uL 1.4-7. 0 normal Not Available [facility] ([facility]) [address] [place], [address], 05/14/2024 12:08:28 05/14/19 25 05/14/2024 CBC WITH DIFFE RENTI AL/PL ATELE T lymphs (absolute) 3.3 x10e3 /uL 0.7-3. 1 above high normal Not Available [facility] ([facility]) [address] [place], [address], 05/14/2024 12:08:28 05/14/19 25 05/14/2024 CBC WITH DIFFE RENTI AL/PL ATELE T monocytes(ab solute) 0.5 x10e3 /uL 0.1-0. 9 normal Not Available [facility] ([facility]) [address] [place], [address], 05/14/2024 12:08:28 05/14/19 25 05/14/2024 CBC WITH DIFFE RENTI AL/PL ATELE T eos (absolute) 0.3 x10e3 /uL 0.0-0. 4 normal Not Available [facility] ([facility]) [address] [facility], [place], [address], 05/14/2024 12:08:28 05/14/19 25 05/14/2024 CBC WITH DIFFE RENTI AL/PL ATELE T baso (absolute) 0.1 x10e3 /uL 0.0-0. 2 normal Not Available [facility] ([facility]) [address] [facility], [place], [address], 05/14/2024 12:08:28 05/14/19 25 05/14/2024 CBC WITH DIFFE RENTI AL/PL ATELE T immature granulocytes 1 % not estab. Not Available [facility] ([facility]) [address] [facility], [place], [address], 05/14/2024 12:08:28 05/14/19 25 05/14/2024 CBC WITH DIFFE RENTI AL/PL ATELE T immature grans (abs) 0.1 x10e3 /uL 0.0-0. 1 Not Available [facility] ([facility]) [address] [facility], [place], [address], 05/14/2024 12:08:28 05/14/19 25 05/14/2024 CBC WITH DIFFE RENTI AL/PL ATELE T NRBC ASSOCIATE MATERIAL HANDLER Not Available [facility] ([facility]) [address] [facility], [place], [address], 05/14/2024 12:08:28 05/14/19 25 05/14/2024 CBC WITH DIFFE RENTI AL/PL ATELE T hematology comments: ASSOCIATE MATERIAL HANDLER Not Available [facility] ([facility]) [address] [place], [address], 05/14/2024 12:08:28 05/14/19 25 05/14/2024 COMP. METAB OLIC PANEL (14) glucose 145 mg/dL 70-99 above high normal Not Available [facility] ([facility]) [address] [facility], [place], [address], 05/14/2024 12:08:29 05/14/19 25 05/14/2024 COMP. METAB OLIC PANEL (14) BUN 12 mg/dL 6-24 normal Not Available [facility] ([facility]) [address] [facility] [place], [address], 05/14/2024 12:08:29 05/14/19 25 05/14/2024 COMP. METAB OLIC PANEL (14) creatinine 0.89 mg/dL 0.76-1 .27 normal Not Available [facility] ([facility]) [address] [place], [address], 05/14/2024 12:08:29 05/14/19 25 05/14/2024 COMP. METAB OLIC PANEL (14) eGFR 99 mL/mi n/1.7 3 >59 normal Not Available [facility] ([facility]) [address] [place], [address], 05/14/2024 12:08:29 05/14/19 25 05/14/2024 COMP. METAB OLIC PANEL (14) BUN/creatini ne ratio 13 9-20 normal Not Available [facility] ([facility]) [address] [place], [address], 05/14/2024 12:08:29 05/14/19 25 05/14/2024 COMP. METAB OLIC PANEL (14) sodium 136 mmol/ L 134-14 4 normal Not Available [facility] ([facility]) [address] [place], [address], 05/14/2024 12:08:29 05/14/19 25 05/14/2024 COMP. METAB OLIC PANEL (14) potassium 4.6 mmol/ L 3.5-5. 2 normal Not Available [facility] ([facility]) [address] [facility] [place], [address], 05/14/2024 12:08:29 05/14/19 25 05/14/2024 COMP. METAB OLIC PANEL (14) chloride 98 mmol/ L 96-106 normal Not Available [facility] ([facility]) [address] [facility] [place], [address], 05/14/2024 12:08:29 05/14/19 25 05/14/2024 COMP. METAB OLIC PANEL (14) carbon dioxide, total 21 mmol/ L 20-29 normal Not Available [facility] ([facility]) [address] [facility] [place], [address], 05/14/2024 12:08:29 05/14/19 25 05/14/2024 COMP. METAB OLIC PANEL (14) calcium 9.6 mg/dL 8.7-10 .2 normal Not Available [facility] ([facility]) [address] [facility] [place], [address], 05/14/2024 12:08:29 05/14/19 25 05/14/2024 COMP. METAB OLIC PANEL (14) protein, total 7.2 g/dL 6.0-8. 5 normal Not Available [facility] ([facility]) [address] [facility] [place], [address], 05/14/2024 12:08:29 05/14/19 25 05/14/2024 COMP. METAB OLIC PANEL (14) albumin 4.5 g/dL 3.8-4. 9 normal Not Available [facility] ([facility]) [address] [facility] [place], [address], 05/14/2024 12:08:29 05/14/19 25 05/14/2024 COMP. METAB OLIC PANEL (14) globulin, total 2.7 g/dL 1.5-4. 5 Not Available [facility] ([facility]) [address] [facility] [place], [address], 05/14/2024 12:08:29 05/14/19 25 05/14/2024 COMP. METAB OLIC PANEL (14) bilirubin, total 0.5 mg/dL 0.0-1. 2 normal Not Available [facility] ([facility]) [address] [facility] [place], [address], 05/14/2024 12:08:29 05/14/19 25 05/14/2024 COMP. METAB OLIC PANEL (14) alkaline phosphatase 85 IU/L 44-121 normal Not Available [facility] ([facility]) [address] [facility] [place], [address], 05/14/2024 12:08:29 05/14/19 25 05/14/2024 COMP. METAB OLIC PANEL (14) AST (SGOT) 32 IU/L 0-40 normal Not Available [facility] ([facility]) [address] [facility] [place], [address], 05/14/2024 12:08:29 05/14/19 25 05/14/2024 COMP. METAB OLIC PANEL (14) ALT (SGPT) 37 IU/L 0-44 normal Not Available [facility] ([facility]) [address] [facility] [place], [address], 05/14/2024 12:08:29 05/14/19 25 05/14/2024 LIPID PANEL cholesterol, total 137 mg/dL 100-19 9 normal Not Available [facility] ([facility]) [address] [facility] [place], [address], 05/14/2024 12:08:30 05/14/19 25 05/14/2024 LIPID PANEL triglyceride s 131 mg/dL 0-149 normal Not Available [facility] ([facility]) [address] [place], [address], 05/14/2024 12:08:30 05/14/19 25 05/14/2024 LIPID PANEL HDL cholesterol 44 mg/dL >39 normal Not Available [facility] ([facility]) [address] [facility], [place], [address], 05/14/2024 12:08:30 05/14/19 25 05/14/2024 LIPID PANEL VLDL cholesterol isaak 23 mg/dL 5-40 Not Available [facility] ([facility]) [address] [facility], [place], [address], 05/14/2024 12:08:30 05/14/19 25 05/14/2024 LIPID PANEL LDL chol calc ([facility]) 70 mg/dL 0-99 Not Available [facility] ([facility]) [address] [facility], [place], [address], 05/14/2024 12:08:30 05/14/19 25 05/14/2024 LIPID PANEL LDL calc comment: ASSOCIATE MATERIAL HANDLER Not Available [facility] ([facility]) [address] [facility], [place], [address], 05/14/2024 12:08:30 05/14/19 25 05/14/2024 HCV ANTIB SILVER CASCA DE(PC R/GEN O) HCV Ab Non Reacti ve non reacti ve Not Available [facility] ([facility]) [address] [facility], [place], [address], 05/14/2024 12:08:31 05/14/19 25 05/14/2024 HCV ANTIB SILVER CASCA DE(PC R/GEN O) interpretati on: Commen t Not infec jesus manuel with HCV unles s early or acute infec tion is suspe cted (whic h may be delay ed in an immun ocomp romis ed indiv idual ), or other evide nce exist s to indic ate HCV infec tion. Not Available [facility] ([facility]) [address] [facility], [place], [address], 05/14/2024 12:08:31 05/14/19 25 05/14/2024 TESTO STERO NE testosterone 555 NG/dL 264-91 6 normal Adult male refer ence inter francine is based on a popul ation of healt hy nonob johnny males (BMI <30) betwe en 19 and 39 years old. Madhu gaspar, et.al . JCEM 2017, 102;1 161-1 173. PMID: 12763 103. Not Available [facility] ([facility]) [address] [facility], [place], [address], 05/14/2024 12:08:31 05/14/1905/14/2024 TSH TSH 2.460 uIU/m L 0.450- 4.500 normal Not Available [facility] ([facility]) [address] [facility], [place], [address], 05/14/2024 12:08:32 05/14/19 25 05/14/2024 VITAM IN D, 25-HY DROXY vitamin D, 25-hydroxy 13.8 NG/mL 30.0-1 00.0 below low normal Vitam in D defic iency has been defin ed by the Insti tute of Medic ine and an Endoc rine Socie ty pract ice guide line as a level of serum 25-OH vitam in D less than 20 ng/mL (1,2) . The Endoc rine Socie ty went on to furth er defin e vitam in D insuf ficie ncy as a level betwe en 21 and 29 ng/mL (2). 1. IOM (Inst itute of Medic ine). 2009. Dieta ry refer ence intak es for calci um and D. Diaz middleton [place]: The [facility] Press . 2. Daija trevizo [place], Maximus mcintosh [place], Aureliano off-F errnathaniel i KOENIG, et al. Evalu ation , treat ment, and preve ntion of vitam in D defic iency : an Endoc rine Socie ty clini isaak pract ice guide line. JCEM. 2010; 96(7) :1911 -30. Not Available [facility] ([facility]) [address] [facility], [place], [address], 05/14/2024 12:08:33 05/14/1905/14/2024 HIV AB/P2 4 AG WITH REFLE X HIV Ab/P24 Ag screen Non Reacti ve non reacti ve HIV-1 /HIV- 2 antib odies and HIV-1 p24 antig en were NOT detec jesus manuel. There is no labor atory evide nce of HIV infec tion. HIV Negat anu Not Available [facility] ([facility]) [address] [facility], [place], [address], 05/14/2024 12:08:33 05/14/1905/14/2024 PROST ATE SPECI FIC AG, SERUM prostate specific Ag 0.4 NG/mL 0.0-4. 0 normal Jose ECLIA metho dolog y. Accor ding to the Ameri can Urolo gical Assoc iatio n, Serum PSA shoul d decre ase and remai n at undet ectab le level s after radic al prost atect blaise. The AUA defin es bioch emica l recur rence as an initi al PSA value 0.2 ng/mL or great er follo wed by a subse quent confi rmato ry PSA value 0.2 ng/mL or great er. Value s obtai nakul with diffe rent assay metho ds or kits canno t be used inter campos eably . Resul ts canno t be inter prete d as absol chitimacha evide nce of the prese nce or absen ce of boni segura se. Not Available [facility] ([facility]) [address] [facility], [place], [address], 05/14/2024 12:08:34 05/14/1905/14/2024 HEMOG LOBIN A1C hemoglobin A1C 7.5 % 4.8-5. 6 above high normal Predi abete s: 5.7 - 6.4 Diabe franko: >6.4 Glyce rylee contr ol for adult s with diabe franko: <7.0 Not Available [facility] ([facility]) [address] [facility], [place], [address], 05/14/2024 23:06:59 05/14/19 25 05/14/2024 LINDSAY EN AUTHO RIZAT ION written authorizatio n Maninder t Lindsay en Autho rizat ion Recei sonia. Autho rizat ion recei sonia from [facility] for Link Reque st on 05-14 Logge d by Chema Almazan an Not Available [facility] ([facility]) [address] [facility], [place], [address], 05/14/2024 23:06:59 05/14/19 25 05/13/2024 micro album in/cr eatin ine, mass ratio , urine Microalbumin 10 mg/L Not Available [facility] [address] [place], [address], 05/13/2024 08:14:01 05/14/19 25 05/13/2024 micro album in/cr eatin ine, mass ratio , urine Creatinine 50 mg/dL Not Available [facility] [address] [place], [address], 05/13/2024 08:14:01 05/14/19 25 05/13/2024 micro album in/cr eatin ine, mass ratio , urine Ratio 30-300 mg/g Not Available [facility] [address] [place], [address], 05/13/2024 08:14:01 01/15/20 25 01/14/2025 micro album in/cr eatin ine, mass ratio , urine Microalbumin 10 mg/L Not Available [facility] [address] [place], [address], 01/14/2025 16:51:35 01/15/20 25 01/14/2025 micro album in/cr eatin ine, mass ratio , urine Creatinine 100 mg/dL Not Available [facility] [address] [place] [address], [place], [address], 01/14/2025 16:51:35 01/15/20 25 01/14/2025 micro album in/cr eatin ine, mass ratio , urine Ratio <30 mg/g Not Available [facility] [address] [place] [address], [address], 01/14/2025 16:51:35 01/15/20 25 01/14/2025 HbA1c (hemo globi n A1c), blood HbA1c 7.1 % Not Available [address], [address], 01/14/2025 16:51:30 Result Notes None recorded. Problems Name Problem SNOMED Code Status Onset Date Resolution Date Notes Provider Name and Address Organization Details Recorded Time Hyperlipidemia 19005918 Active 2024 PERFECTO Bland [address] [place] [address], [address], [employer] 17:40:34 Essential hypertension 73356297 Active 2024 PERFECTO Bland [address] [place] [address], [address], [employer] 17:40:24 Gastroesophage al reflux disease without esophagitis 609169129 Active 2024 PERFECTO Bland [address] [place] [address], [address], [employer] 17:40:27 Chronic sinusitis 04908400 Active 2024 PERFECTO Bland [address] [place] [address], [address], [employer] 17:40:36 Chronic kidney disease 887518350 Active 2024 Shoshana SandhuPERFECTO [address] [place] [address], [address], [employer] 17:40:20 Urine microalbumin detected 230454920 Active 2024 Shoshana Sandhu PERFECTO [address] [place] [address], [address], [employer] 17:40:30 Vitamin D deficiency 93712950 Active 2024 Shoshana SandhuPERFECTO [address] [place] [address], [address], [employer] 17:42:07 Type 2 diabetes mellitus without complication 496927409 Active 2024 Shoshana PERFECTO Sandhu [address] [place] [address], [address], [employer] 09:13:35 Spasm of back muscles 350556600 Active 2024 Shoshana PERFECTO Sandhu [address] [place] [address], [address], [employer] 17:07:45 Low back pain 089483965 Active 2024 Shoshana PERFECTO Sandhu [address] [place] [address], [address], [employer] 13:30:37 Problem Notes None recorded. Procedures Surgical History Date Name Laterality Status Provider Name and Address Organization Details Recorded Time Diabetic Foot Screen completed Shoshana PERFECTO Sandhu [address] [place] [address], [address], [employer] 05/13/2024 14:20:35 Hip Replacement completed Elisa [facility] [employer] 03/15/2024 15:11:13 Stent completed Elisa [facility] [employer] 03/15/2024 15:11:20 Imaging Results None recorded. Procedure Notes None recorded. Medical Equipment None Reported. Allergies Allergen ID Allergen Name Allergen Category Reaction Reaction Severity Criticality Documentation Date Start Date Code Code System Note Provider Name and Address Organization Details Recorded Time 53339 acetamino phen / oxycodone medicatio n Not available Not available Not available 03/15/2024 18795 3 RxNorm Elisa null, [employer] 5 15:07:41 93200 metformin medicatio n Not available Not available Not available 05/16/2024 6809 RxNorm Elisa null, [employer] 5 09:05:31 Medications Name Sig Start [...] Available Not Available Vitals Date Recorded Body weight Body mass index (BMI) Body height Heart rate Oxygen saturation Oxygen saturation in Arterial blood by Pulse oximetry Systolic And Diastolic Systolic And Diastolic Systolic And Diastolic Provider Name and Address Organization Details Last Updated DateTime 5 03398.7 2 g 30.2 kg/m2 175.26 cm 63 /min 96 % 96 % 152/80 mm[Hg] 152/80 mm[Hg] 150/80 mm[Hg] [employer] 5 15:23:54 Date Recorded Body height Body mass index (BMI) Body weight Oxygen saturation Oxygen saturation in Arterial blood by Pulse oximetry Heart rate Systolic And Diastolic Systolic And Diastolic Systolic And Diastolic Provider Name and Address Organization Details Last Updated DateTime 5 175.26 cm 30.6 kg/m2 81877.0 6 g 95 % 95 % 66 /min 166/80 mm[Hg] 170/74 mm[Hg] 168/78 mm[Hg] [employer] 5 14:26:53 Date Recorded Body height Body mass index (BMI) Body weight Heart rate Oxygen saturation Oxygen saturation in Arterial blood by Pulse oximetry Body temperature Systolic And Diastolic Systolic And Diastolic Provider Name and Address Organization Details Last Updated DateTime 5 175.26 cm 29.5 kg/m2 12913.0 4 g 76 /min 94 % 94 % 98.1 [degF] 170/68 mm[Hg] 164/70 mm[Hg] [employer] 5 17:21:53 Date Recorded Body height Body mass index (BMI) Body weight Oxygen saturation Oxygen saturation in Arterial blood by Pulse oximetry Heart rate Body temperature Systolic And Diastolic Systolic And Diastolic Provider Name and Address Organization Details Last Updated DateTime 5 175.26 cm 29.3 kg/m2 21499.4 4 g 96 % 96 % 64 /min 98.4 [degF] 162/80 mm[Hg] 160/80 mm[Hg] [employer] 5 16:51:05 Date Recorded Body height Body mass index (BMI) Body weight Heart rate Oxygen saturation Oxygen saturation in Arterial blood by Pulse oximetry Body temperature Systolic And Diastolic Systolic And Diastolic Provider Name and Address Organization Details Last Updated DateTime 5 175.26 cm 29.5 kg/m2 78252.4 7 g 70 /min 96 % 96 % 98.1 [degF] 148/70 mm[Hg] 146/72 mm[Hg] [employer]isa[employer]MD 5 13:09:53 Social History Question Answer Notes LastModified by Organizat ion Details LastModified Time Tobacco Smoking Status Current Every Day Smoker ElisaAlaris. 03/15/2024 14:58:20 Do You Have An Advance [...] Information not available 01/03/2025 What Type Of Stencil Maker Do You Use? None Information not available [...] Or The Highest Degree You Have Received? [id number] Information not available 01/03/2025 Have There Been [...] Do You Have A Medical Power Of Assembler Dc [place]? No Information not available 03/15/2024 What Was [...] Functional Status Question Answer Note LastModified by [employer] Details LastModified Time Do you use any [...] Mental Status Question Answer Note LastModified by [employer] ion Details LastModified Time Do you feel stressed (tense, restless, nervous, or anxious, or unable to sleep at night)? [id number] Information not available 03/15/2024 Do you have [...] History Condition Response Coronary Artery Disease N Other N Gout N Kidney Stones N Blood Diseases N Hyperthyroidism N Blood Transfusion N Breast Cancer N Emergency room visit since last appointm ent. N COPD N Depression N Dermatologic Disorders N Lung Disease N Hypothyroidism N Developmental or Behavioral Disorders N Defects or Inherited Disease N Breast Problem N Difficulty Swallowing N Anesthesia Complications N History of STI N Anxiety Disorder N Meniere's disease N Autoimmune disease N Muscle, Joint, or Bone Problems N Vision or Eye Problems N Arthritis N Infertility N Polyps N Mental Disorder N Congenital Anomalies N Acid Reflux (GERD) Y Cancer N Stroke N Neurologic/Epilepsy N Endometriosis N Bladder or Kidney Problems N High Cholesterol Y Liver Disease N Psychiatric/Mental Health Condition N Organ Transplant N Fibromyalgia N Headaches N Schizophrenia N Dialysis N Kidney Disease N Allergies/Hayfever Y Heart [...] mL, PF 01/03/2025 completed Elisa Vice null, [employer] 01/03/2025 17:24:12 Tdap 03/14/2018 completed Eilsa Vice null, [employer] 03/15/2024 15:02:20 Hep A, adult 03/14/2018 completed Elisa Vice null, [id number] 03/15/2024 15:02:20 Past Encounters Encounter ID Performer Location Encounter Start Date Encounter Closed Date Diagnosis/Indication Diagnosis SNOMED-CT Code Diagnosis ICD10 Code Diagnosis IMO Codes Diagnosis Note [id number] PERFECTO Bland [address] [address] 03/15/2024 14:21:56 03/15/2024 15:46:08 Type 2 diabetes mellitus without complication 532519606 E11.9 Hyperlipidemia 87135003 E78.5 Essential hypertension 37963669 I10 Gastroesop hageal reflux disease without esophagitis 384264286 K21.9 Chronic sinusitis 005401 00 J32.9 refer to site inspector - may need CT sinuses; may benefit from Dupixent Body mass index 30+ - obesity 280520164 Z68.30 [id number] PERFECTO Bland [address] [address] 05/13/2024 07:56:07 05/13/2024 08:55:17 Type 2 diabetes mellitus without complication 054284076 E11.9 Chronic ki dney disease 831371572 N18.9 Hyperlipidemia 09520381 E78.5 Screening for malignant neoplasm of prostate 916433242 Z12.5 HIV screening 144210038 Z11.4 Hepatitis C screening 41 0922182 Z11.59 Fatigue 51552634 R53.83 Urine micr oalbumin detected 232778404 R80.9 [id number] PERFECTO Bland [address] [address] 01/03/2025 16:41:41 01/03/2025 17:09:01 Requires respiratory syncytial virus vaccination 625502136 Z29.11 699442 [id number] PERFECTO Bland [facility] [address] [facility] [place] [address] 01/14/2025 16:21:00 01/14/2025 17:07:42 Type 2 diabetes mellitus 72467944 E11.9 15917385 Chronic sinusitis 085616 00 J32.9 Spasm of back muscles 20 8344037 M62.830 [id number] Salonpas patches samples given to patientInc rease fluidsRTC if not improving [id number] PERFECTO Bland [facility] [address] [facility] [place] [address] 01/16/2025 12:24:58 01/16/2025 13:28:24 Acute low back pain 739755751 M54.50 [id number] Goals Section Goal Description Progress Status Start Date LastModified by Organization Details LastModified Time Medication Regimen Follows medication regimen as per care team recommendati on(s) None active 2024 Larisa Cortez Information not available 05/21/2024 15:12:38 Blood Glucose Maintains blood glucose within target range None active 2024 Larisa Cortez Information not available 05/21/2024 14:50:33 Diet Adherence Follows prescribed or recommended diet None active 2024 Larisa Cortez Information not available 05/21/2024 14:50:33 Follow-up Appointment( s) Attends referral and/or follow-up appointment( s) as per care team recommendati on(s) None active 2024 Larisa Cortez Information not available 05/21/2024 14:50:33 Blood Pressure Maintains blood pressure goal as defined by care team None active 2024 Larisa Cortez Information not available 05/21/2024 14:50:34 Health Concerns Section Related Observation LastModified by Organization Detai ls LastModified Time None Recorded Concern Status LastModified by Organization Details LastModified Time Essential hypertension Active Larisa Cortez Not Available 05/21/2024 15:12 :38 Chronic kidney disease Active Larisa Cortez Not Available 05/21/2024 15:12 :38 Type 2 diabetes mellitus without complication Active Larisa Cortez Not Available 05/21/2024 15:12 :38 Advance Directives Directive N: Payers Insurance Date Sequence Insurance Name Policy Number Policy Muro Covered Member ID Muro Member ID Guarantor Name 01/11/2025 2 [place] [facility] CHOICES - FFS/TRADITION AL Tyler Mcclureump [id number] Tyler Turpin Jocy 01/11/2025 [place] [employer] - [facility] Tyler Araya Jocy Jr [id number] Tyler Turpin Jocy 03/19/2024 [place] [employer] [place] [facility] [place] Tyler Araya Jocy [id number] Tyler Turpin Jocy 01/11/2025 [employer] - MEDICARE-[address] [facility] (MEDICARE) [employer] Tyler Sandra [id number] Tyler Turpin Jocy 01/11/2025 1 [facility] (MEDICARE REPLACEMENT/A DVANTAGE - PPO) [place] Tyler Araya Jocy [id number] Tyler Turpin Jocy 03/15/2024 1 *SELF PAY* staceymariano Turpin Jocy Notes Date Note Type Note Provider Name and Address Organization Details Recorded Time 03/15/2024 text/html Patient presents to establish care.History of DM, HTN, HLD, GERD.States he feels like he has a sinus infection all the time. Has pain, pressure, congestion but can rarely blow anything out. Has used antihistamines, nasal sprays. Has used antibiotics and steroids. Has never had CT of sinuses. PERFECTO Bland [address] [place] [address], [phone], [employer] 03/19/2024 13:16:32 05/13/2024 text/html ROS as noted in the HPI Patient presents for followup.History of diabetes. States he is doing ok with his medication.Would like to have testosterone checked. PERFECTO Bland [address] [place] [address], [phone], [employer] 05/13/2024 14:22:01 01/03/2025 text/html Patient presents for RSV vaccine PERFECTO Bland [address] [place] [address], [phone], [employer] 01/03/2025 17:14:34 01/14/2025 text/html ROS as noted in the HPI Patient began having right lower back pain 4-5 days ago. Seen [facility] yesterday. Given steroid shot and Toradol. He hasn't had much relief.History of DM. DOing well.Needs refills on Xyzal. PERFECTO Bland [address] [place] [address], [place], [phone], [employer] 01/14/2025 17:38:58
--- OUTSIDE RECORDS SUMMARY | 2025-01-16 14:03 | XMS_ITS | Continuity of Care Document ---
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 Plan of Treatment Reminders Order Date Submit Date Provider Last Modified By Organization Details Last Modified Time Details Appointments FOLLOW UP 30 2024 01:00P Suni Sandhu PA-C Not available Not available Not available Lab HbA1c (hemoglob in A1c), blood [address], [address] [place], [address], 01/14/2025 17:08:11 microalbu min/creat inine, mass ratio, urine [address], [address] [place], [address], 01/14/2025 17:08:11 Referral None recorded. Procedures None recorded. Surgeries None recorded. Imaging None recorded. Medication Orders cyclobenz aprine 10 mg tablet 2024 025 [facility], [address], [address], 01/14/2025 17:11:00 meloxicam 15 mg tablet 2024 025 [facility], [address], [address], 01/14/2025 17:10:59 Xyzal 5 mg tablet 2024 025 [email or web address] [facility] [address], [address], [place], [place], [id number], 01/14/2025 17:08:10 Patient TargetsNo targets recorded. Patient Instructions Encounter Date Encounter Id Patient Instructions Last Modified By Organization Details Last Modified Time 01/14/2025 [id number] learning about type 2 diabetes Not available 01/14/2025 17:08:10 type 2 diabetes: care instructions [email or web address] Not available 01/14/2025 17:08:10 Reason for Referral None Reported. Results Created Date Observation Date Name Description Value Unit Range Abnormal Flag Note LastModifiedBy Organization Detail LastModifiedTime 01/15/2001/14/2025 micro album in/cr eatin ine, mass ratio , urine Microalbumin 10 mg/L Not Available [facility] [address] [place] [address], [address], 01/14/2025 16:51:35 01/15/20 25 01/14/2025 micro album in/cr eatin ine, mass ratio , urine Creatinine 100 mg/dL Not Available [facility] [address] [place] [address], [address], 01/14/2025 16:51:35 01/15/20 25 01/14/2025 micro album in/cr eatin ine, mass ratio , urine Ratio <30 mg/g Not Available [address], [address], 01/14/2025 16:51:35 01/15/20 25 01/14/2025 HbA1c (hemo globi n A1c), blood HbA1c 7.1 % Not Available [facility] [address] [place] [address], [address], 01/14/2025 16:51:30 Result Notes None recorded. Problems Name Problem SNOMED Code Status Onset Date Resolution Date Notes Provider Name and Address Organization Details Recorded Time Hyperlipidemia 73082637 Active 2024 PERFECTO Bland [address] [place] [address], [address], [employer] 17:40:34 Essential hypertension 06395144 Active 2024 PERFECTO Bland [address] [place] [address], [address], [employer] 17:40:24 Gastroesophage al reflux disease without esophagitis 099027451 Active 2024 PERFECTO Bland [address] [place] [address], [address], [employer] 17:40:27 Chronic sinusitis 11170641 Active 2024 PERFECTO Bland [address] [place] [address], [address], [employer] 17:40:36 Chronic kidney disease 806843237 Active 2024 PERFECTO Bland [address] [place] [address], [address], [employer] 17:40:20 Urine microalbumin detected 864034472 Active 2024 PERFECTO Bland [address] [place] [address], [address], [employer] 17:40:30 Vitamin D deficiency 25597932 Active 2024 PERFECTO Bland [address] [place] [address], [address], [employer] 17:42:07 Type 2 diabetes mellitus without complication 938721738 Active 2024 PERFECTO Bland [address] [place] [address], [address], [employer] 03/06/202 5 09:13:35 Spasm of back muscles 454158388 Active 2024 PERFECT[address] Bladn [address] [place] [address], [address], [employer] 17:07:45 Low back pain 983860561 Active 2024 PERFECTO Bland [address] [place] [address], [address], [employer] 13:30:37 Problem Notes None recorded. Procedures Surgical History Date Name Laterality Status Provider Name and Address Organization Details Recorded Time Diabetic Foot Screen completed PERFECTO Bland [address] [place] [address], [phone], [employer] 05/13/2024 14:20:35 Hip Replacement completed [employer] 03/15/2024 15:11:13 Stent completed [employer] 03/15/2024 15:11:20 Imaging Results None recorded. Procedure Notes None recorded. Medical Equipment None Reported. Allergies Allergen ID Allergen Name Allergen Category Reaction Reaction Severity Criticality Documentation Date Start Date Code Code System Note Provider Name and Address Organization Details Recorded Time 40573 acetamino phen / oxycodone medicatio n Not available Not available Not available 03/15/2024 15747 3 RxNorm Elisa [employer], [employer] 15:07:41 72387 metformin medicatio n Not available Not available Not available 05/16/2024 6809 RxNorm Elisa [employer], [employer] 09:05:31 Medications Name Sig Start Date Stop [...] Organization Details Last Updated DateTime 175.26 cm 29.3 kg/m2 88691.4 4 g 96 % 96 % 64 /min 98.4 [degF] 162/80 mm[Hg] 160/80 mm[Hg] [facility] Cognitive Code, [facility]. 16:51:05 Social History Question Answer Notes LastModified by Organizat ion Details LastModified Time Tobacco Smoking Status Current Every Day Smoker Elisa justin, [employer] 03/15/2024 14:58:20 Do You Have An Advance [...] Information not available 01/03/2025 What Type Of Project Geophysicist Do You Use? None Information not available [...] Or The Highest Degree You Have Received? [id number] Information not available 01/03/2025 Have There Been [...] Do You Have A Medical Power Of Production Engineer Track? No Information not available 03/15/2024 What Was [...] Status Question Answer Note LastModified by Organizat [employer] Details LastModified Time Do you use any [...] Status Question Answer Note LastModified by Organizat [employer] Details LastModified Time Do you feel stressed (tense, restless, nervous, or anxious, or unable to sleep at night)? [id number] Information not available 03/15/2024 Do you have [...] mL, PF 01/03/2025 completed Elisa Vice null, [employer] 01/03/2025 17:24:12 Tdap 03/14/2018 completed Elisa Vice null, [employer] 03/15/2024 15:02:20 Hep A, adult 03/14/2018 completed Elisa Vice null, [employer] 03/15/2024 15:02:20 Past Encounters Encounter ID Performer Location Encounter Start Date Encounter Closed Date Diagnosis/Indication Diagnosis SNOMED-CT Code Diagnosis ICD10 Code Diagnosis IMO Codes Diagnosis Note [id number] PERFECTO Bland [facility] [address] [place] [address] [address] 01/03/2025 16:41:41 01/03/2025 17:09:01 Requires respiratory syncytial virus vaccination 188193836 Z29.11 380029 [id number] PERFECTO Bland [facility] [address] [place] [address] 01/14/2025 16:21:00 01/14/2025 17:07:42 Type 2 diabetes mellitus 49472020 E11.9 33780620 Chronic sinusitis 103093 00 J32.9 Spasm of back muscles 20 8019036 M62.830 777110 Salonpas patches samples given to patientInc rease fluidsRTC if not improving Goals Section Goal Description Progress Status Start [...] Member ID Muro Member ID Guarantor Name 01/14/2025 2 [place] [employer] [place] [facility] [place] - FFS/TRADITION AL Tyler Sandra [id number] Tyler Sandra 01/14/2025 1 [facility] (MEDICARE REPLACEMENT/A DVANTAGE - PPO) ANAM Tyler Araya Jocy [id number] Tyler Sandra Notes Date Note Type Note Provider Name and Address Organization Details Recorded Time 01/14/2025 text/html ROS as noted in the HPI Patient began having right lower back pain 4-5 days ago. Seen at [facility] yesterday. Given steroid shot and Toradol. He hasn't had much relief.History of DM. DOing well.Needs refills on Xyzal. PERFECTO Bland [address] [place] [address], [place], [address], [facility] 01/14/2025 17:38:58
== END 2025-01-16 23:59 | disposition home or self-care (01) ==
LOC: RAD 13:59
PROVIDERS: PCP Physician Assistant; Visit Provider Physician Assistant
DX: M51.369 Other intervertebral disc degeneration, lumbar region without mention of lumbar back pain or lower extremity pain (principal)
CPT/HCPCS: 72110

== ENCOUNTER 2025-01-22 14:19 | Outpatient (CLI) | payer MEDICARE, MEDICAID, SELFPAY ==
--- NOTE | 2025-01-22 14:21 | MR_ITS ---
FINAL REPORT TECHNIQUE: Multiplanar MR without gadolinium enhancement CLINICAL HISTORY: LBP/RADICULOPATHY numbness , pain , tingling on right side x 1 week no injury /trauma FINDINGS: Sagittal images show normal vertebral height. Alignment is normal. There is epidural lipomatosis of L4 and L5. Marrow signal pattern is unremarkable. L1-2: Unremarkable L2-3: Minimal annular disc bulge and mild facet overgrowth. L3-4: Moderate annular disc bulge. Epidural lipomatosis contributes to compression of the thecal sac. Mild central canal stenosis and moderate bilateral neuroforaminal narrowing. L4-5: Large annular disc bulge. Advanced facet arthropathy. Ligamentum flavum hypertrophy with moderate spinal canal compromise. Moderate to severe bilateral neuroforaminal narrowing. Epidural lipomatosis contributes to compression of the thecal sac. L5-S1: Mild annular disc bulge and mild facet overgrowth. Moderate bilateral neuroforaminal narrowing. IMPRESSION: Degenerative changes at L4-5 greater than L3-4 with canal stenosis. Significant epidural lipomatosis at these levels contributing to compression of the thecal sac. Reviewed, Interpreted and Dictated by Ranjith Biswas MD Transcribed by Sridevi Balderrama Authenticated and [facility]
--- OUTSIDE RECORDS SUMMARY | 2025-01-22 14:28 | XMS_ITS | Data Portability ---
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 Plan of Treatment Reminders Order Date Submit Date Provider Last Modified By Organization Details Last Modified Time Details Appointments None recorded. Lab urinalysis, dipstick [address], [facility]8 [place], [address], 5 14:45:50 HbA1c (hemoglobin A1c), blood [address], [address] [place], [address], 17:08:11 microalbumi n/creatinin e, mass ratio, urine [address], [address] [place], [address], 17:08:11 lipid panel, serum 2024 025 [facility] ([facility], [address] [place] [address], [place], [address], 5 12:08:30 testosteron e, total, serum 2024 025 [facility] ([place]), [address] [place], [address], 12:08:32 PSA, total, serum or plasma 2024 025 [facility] ([place]), [address] [place], [address], 12:08:34 CMP, serum or plasma 2024 025 [facility] ([place]), [address] [place], [address], 12:08:29 CBC w/ auto diff 2024 025 [facility] ([place]), [address] [place], [address], 12:08:29 vitamin D, 25-hydroxy, total, serum 2024 025 [facility]), [address] [place], [address], 12:08:33 TSH, ultra-sensi tive, serum 2024 025 [facility] ([place]), [address] [place], [address], 12:08:32 microalbumi n/creatinin e, mass ratio, urine [email or web address], [address] [facility], [place], [address], 09:19:10 Hepatitis C IgG Ab, qual, serum 2024 025 [facility] ([place]), [address] [place], [address], 12:08:31 HIV 1 + 2, meaningful use set 2024 025 [facility] ([place]), [address], [place], [address], 12:08:33 HbA1c (hemoglobin A1c), blood [email or web address] [place] [address], [address] 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 Surgeries None recorded. Imaging XR, lumbar spine 2024 025 [facility] (X-Ray), [address], [place], [address], 5 19:40:16 Medication Orders Lyrica 75 mg capsule 2024 025 [facility], [address], [address], 5 13:32:36 prednisone 20 mg tablet 2024 025 [facility], [address], [address], 5 13:32:30 cyclobenzap rine 10 mg tablet 2024 025 [facility], [address], [address], 5 17:11:00 meloxicam 15 mg tablet 2024 025 [facility], [address], [address], 17:10:59 Xyzal 5 mg tablet 2024 025 [email or web address] [facility]), [address], [address], [place], [place], [id number], 17:08:10 Kerendia 20 mg tablet 2024 025 [facility]IG[facility] ([facility]), [address], [address], [place], [place], [id number], 09:01:45 Xyzal 5 mg tablet 2024 025 [facility]IGNA [facility] ([facility]), [address], [address], [place], [place], [id number], 16:50:53 Singulair 10 mg tablet 2024 025 [facility] ([facility]), [address], [address], [place], [place], [id number], 16:48:11 Patient TargetsNo targets recorded. Patient Instructions Encounter Date Encounter Id Patient Instructions Last Modified By Organization Details Last Modified Time 03/15/2024 [id number] high blood pressure: care instructions [email or web address] Not available 03/15/2024 15:33:27 learning about high blood pressure [email or web address] Not available 03/15/2024 15:33:27 type 2 diabetes: care instructions Not available 03/15/2024 15:22:11 chronic sinusitis: care instructions [email or web address] Not available 03/15/2024 15:33:27 high cholesterol : care instructions [email or web address] Not available 03/15/2024 15:33:27 body mass index: care instructions [email or web address] Not available 03/19/2024 13:16:28 learning about healthy weight [email or web address] Not available 03/19/2024 13:16:28 05/13/2024 [id number] type 2 diabetes: care instructions [email or web address] Not available 05/13/2024 09:19:10 HIV testing: car e instructions [email or web address] Not available 05/13/2024 09:32:19 01/14/2025 [id number] learning about type 2 diabetes Not available 01/14/2025 17:08:10 type 2 diabetes: care instructions [email or web address] Not available 01/14/2025 17:08:10 Reason for Referral Manager Loan Referral for Chron ic sinusitis first available appt Referring Physician: Shoshana Sandhu, Family Medicine, Encounter Date: 03/15/2024 Results Created Date Observation Date Name Description Value Unit Range Abnormal Flag Note LastModifiedBy Organization Detail LastModifiedTime 03/15/1903/15/2024 HbA1c (hemo globi n A1c), blood HbA1c 7.2 % Not Available [address], [place], [address], 03/15/2024 15:15:06 05/14/19 25 05/14/2024 CBC WITH DIFFE RENTI AL/PL ATELE T WBC 9.7 x10e3 /uL 3.4-10 .8 normal Not Available [facility] ([facility]) [address] [place], [address], 05/14/2024 12:08:28 05/14/19 25 05/14/2024 CBC WITH DIFFE RENTI AL/PL ATELE T RBC 5.50 x10e6 /uL 4.14-5 .80 normal Not Available [facility] ([facility]) [address] [place], [address], 05/14/2024 12:08:28 05/14/19 25 05/14/2024 CBC WITH DIFFE RENTI AL/PL ATELE T hemoglobin 17.8 g/dL 13.0-1 7.7 above high normal Not Available [facility] ([facility]) [address] [place], [address], 05/14/2024 12:08:28 05/14/19 25 05/14/2024 CBC WITH DIFFE RENTI AL/PL ATELE T hematocrit 53.6 % 37.5-5 1.0 above high normal Not Available [facility] ([facility]) [address] [facility], [place], [address], 05/14/2024 12:08:28 05/14/19 25 05/14/2024 CBC WITH DIFFE RENTI AL/PL ATELE T MCV 98 fL 79-97 above high normal Not Available [facility] ([facility]) [address] [place], [address], 05/14/2024 12:08:28 05/14/19 25 05/14/2024 CBC WITH DIFFE RENTI AL/PL ATELE T MCH 32.4 pg 26.6-3 3.0 normal Not Available [facility] ([facility]) [address] [place], [address], 05/14/2024 12:08:28 05/14/19 25 05/14/2024 CBC WITH DIFFE RENTI AL/PL ATELE T MCHC 33.2 g/dL 31.5-3 5.7 normal Not Available [facility] ([facility]) [address] [place], [address], 05/14/2024 12:08:28 05/14/19 25 05/14/2024 CBC WITH DIFFE RENTI AL/PL ATELE T RDW 12.8 % 11.6-1 5.4 Not Available [facility] ([facility]) [address] [place], [address], 05/14/2024 12:08:28 05/14/19 25 05/14/2024 CBC WITH DIFFE RENTI AL/PL ATELE T platelets 180 x10e3 /uL 150-45 0 normal Not Available [facility] ([facility]) [address] [place], [address], 05/14/2024 12:08:28 05/14/19 25 05/14/2024 CBC WITH DIFFE RENTI AL/PL ATELE T neutrophils 55 % not estab. normal Not Available [facility] ([facility]) [address] [facility], [place], [address], 05/14/2024 12:08:28 05/14/19 25 05/14/2024 CBC WITH DIFFE RENTI AL/PL ATELE T lymphs 34 % not estab. normal Not Available [facility] ([facility]) [address] [facility], [place], [address], 05/14/2024 12:08:28 05/14/19 25 05/14/2024 CBC WITH DIFFE RENTI AL/PL ATELE T monocytes 6 % not estab. normal Not Available [facility] ([facility]) [address] [facility], [place], [address], 05/14/2024 12:08:28 05/14/19 25 05/14/2024 CBC WITH DIFFE RENTI AL/PL ATELE T eos 3 % not estab. normal Not Available [facility] ([facility]) [address] [facility], [place], [address], 05/14/2024 12:08:28 05/14/19 25 05/14/2024 CBC WITH DIFFE RENTI AL/PL ATELE T basos 1 % not estab. normal Not Available [facility] ([facility]) [address] [facility], [place], [address], 05/14/2024 12:08:28 05/14/19 25 05/14/2024 CBC WITH DIFFE RENTI AL/PL ATELE T immature cells STOCKFEED MILLER Not Available [facility] ([facility]) [address] [facility], [place], [address], 05/14/2024 12:08:28 05/14/19 25 05/14/2024 CBC WITH DIFFE RENTI AL/PL ATELE T neutrophils (absolute) 5.5 x10e3 /uL 1.4-7. 0 normal Not Available [facility] ([facility]) [address] [place], [address], 05/14/2024 12:08:28 05/14/19 25 05/14/2024 CBC WITH DIFFE RENTI AL/PL ATELE T lymphs (absolute) 3.3 x10e3 /uL 0.7-3. 1 above high normal Not Available [facility] ([facility]) [address] [facility], [place], [address], 05/14/2024 12:08:28 05/14/19 25 05/14/2024 CBC WITH DIFFE RENTI AL/PL ATELE T monocytes(ab solute) 0.5 x10e3 /uL 0.1-0. 9 normal Not Available [facility] ([facility]) [address] [place], [address], 05/14/2024 12:08:28 05/14/19 25 05/14/2024 CBC WITH DIFFE RENTI AL/PL ATELE T eos (absolute) 0.3 x10e3 /uL 0.0-0. 4 normal Not Available [facility] ([facility]) [address] [place], [address], 05/14/2024 12:08:28 05/14/19 25 05/14/2024 CBC WITH DIFFE RENTI AL/PL ATELE T baso (absolute) 0.1 x10e3 /uL 0.0-0. 2 normal Not Available [facility] ([facility]) [address] [place], [address], 05/14/2024 12:08:28 05/14/19 25 05/14/2024 CBC WITH DIFFE RENTI AL/PL ATELE T immature granulocytes 1 % not estab. Not Available [facility] ([facility]) [address] [place], [address], 05/14/2024 12:08:28 03/03/20 25 05/14/2024 CBC WITH DIFFE RENTI AL/PL ATELE T immature grans (abs) 0.1 x10e3 /uL 0.0-0. 1 Not Available [facility] ([facility]) [address] [facility], [place], [address], 05/14/2024 12:08:28 05/14/19 25 05/14/2024 CBC WITH DIFFE RENTI AL/PL ATELE T NRBC STOCKFE[employer] MILLER Not Available [facility] ([facility]) [address] [facility], [place], [address], 05/14/2024 12:08:28 05/14/19 25 05/14/2024 CBC WITH DIFFE RENTI AL/PL ATELE T hematology comments: STOCKFEED MILLER Not Available [facility] ([facility]) [address] [facility], [place], [address], 05/14/2024 12:08:28 05/14/19 25 05/14/2024 COMP. METAB OLIC PANEL (14) glucose 145 mg/dL 70-99 above high normal Not Available [facility] ([facility]) [address] [facility], [place], [address], 05/14/2024 12:08:29 05/14/19 25 05/14/2024 COMP. METAB OLIC PANEL (14) BUN 12 mg/dL 6-24 normal Not Available [facility] ([facility]) [address] [place], [address], 05/14/2024 12:08:29 05/14/19 25 05/14/2024 COMP. METAB OLIC PANEL (14) creatinine 0.89 mg/dL 0.76-1 .27 normal Not Available [facility] ([facility]) [address] [facility], [place], [address], 05/14/2024 12:08:29 05/14/19 25 05/14/2024 COMP. METAB OLIC PANEL (14) eGFR 99 mL/mi n/1.7 3 >59 normal Not Available [facility] ([facility]) [address] [facility] [place], [address], 05/14/2024 12:08:29 05/14/19 25 05/14/2024 COMP. METAB OLIC PANEL (14) BUN/creatini ne ratio 13 9-20 normal Not Available [facility] ([facility]) [address] [facility] [place], [address], 05/14/2024 12:08:29 05/14/19 25 05/14/2024 COMP. METAB OLIC PANEL (14) sodium 136 mmol/ L 134-14 4 normal Not Available [facility] ([facility]) [address] [facility] [place], [address], 05/14/2024 12:08:29 05/14/19 25 05/14/2024 COMP. METAB OLIC PANEL (14) potassium 4.6 mmol/ L 3.5-5. 2 normal Not Available [facility] ([facility]) [address] [facility] [place], [address], 05/14/2024 12:08:29 05/14/19 25 05/14/2024 COMP. METAB OLIC PANEL (14) chloride 98 mmol/ L 96-106 normal Not Available [facility] ([facility]) [address] [facility] [place], [address], 05/14/2024 12:08:29 05/14/19 25 05/14/2024 COMP. METAB OLIC PANEL (14) carbon dioxide, total 21 mmol/ L 20-29 normal Not Available [facility] ([facility]) [address] [facility] [place], [address], 05/14/2024 12:08:29 05/14/19 25 05/14/2024 COMP. METAB OLIC PANEL (14) calcium 9.6 mg/dL 8.7-10 .2 normal Not Available [facility] ([facility]) [address] [place], [address], 05/14/2024 12:08:29 05/14/19 25 05/14/2024 COMP. METAB OLIC PANEL (14) protein, total 7.2 g/dL 6.0-8. 5 normal Not Available [facility] ([facility]) [address] [place], [address], 05/14/2024 12:08:29 05/14/19 25 05/14/2024 COMP. METAB OLIC PANEL (14) albumin 4.5 g/dL 3.8-4. 9 normal Not Available [facility] ([facility]) [address] [place], [address], 05/14/2024 12:08:29 05/14/19 25 05/14/2024 COMP. METAB OLIC PANEL (14) globulin, total 2.7 g/dL 1.5-4. 5 Not Available [facility] ([facility]) [address] [place], [address], 05/14/2024 12:08:29 05/14/19 25 05/14/2024 COMP. METAB OLIC PANEL (14) bilirubin, total 0.5 mg/dL 0.0-1. 2 normal Not Available [facility] ([facility]) [address] [place], [address], 05/14/2024 12:08:29 05/14/19 25 05/14/2024 COMP. METAB OLIC PANEL (14) alkaline phosphatase 85 IU/L 44-121 normal Not Available [facility] ([facility]) [address] [place], [address], 05/14/2024 12:08:29 05/14/19 25 05/14/2024 COMP. METAB OLIC PANEL (14) AST (SGOT) 32 IU/L 0-40 normal Not Available [facility] ([facility]) [address], [place], [address], 05/14/2024 12:08:29 05/14/19 25 05/14/2024 COMP. METAB OLIC PANEL (14) ALT (SGPT) 37 IU/L 0-44 normal Not Available [facility] ([facility]) [address] [facility] [place], [address], 05/14/2024 12:08:29 05/14/19 25 05/14/2024 LIPID PANEL cholesterol, total 137 mg/dL 100-19 9 normal Not Available [facility] ([facility]) [address] [place], [address], 05/14/2024 12:08:30 05/14/19 25 05/14/2024 LIPID PANEL triglyceride s 131 mg/dL 0-149 normal Not Available [facility] ([facility]) [address] [place], [address], 05/14/2024 12:08:30 05/14/19 25 05/14/2024 LIPID PANEL HDL cholesterol 44 mg/dL >39 normal Not Available [facility] ([facility]) [address] [place], [address], 05/14/2024 12:08:30 05/14/19 25 05/14/2024 LIPID PANEL VLDL cholesterol isaak 23 mg/dL 5-40 Not Available [facility] ([facility]) [address] [place], [address], 05/14/2024 12:08:30 05/14/19 25 05/14/2024 LIPID PANEL LDL chol calc ([facility]) 70 mg/dL 0-99 Not Available [facility] ([facility]) [address] [place], [address], 05/14/2024 12:08:30 05/14/19 25 05/14/2024 LIPID PANEL LDL calc comment: STOCKFEED MILLER Not Available [facility] ([facility]) [address] [place], [address], 05/14/2024 12:08:30 05/14/19 25 05/14/2024 HCV ANTIB SILVER CASCA DE(PC R/GEN O) HCV Ab Non Reacti ve non reacti ve Not Available [facility] ([facility]) [address] [facility], [place], [address], 05/14/2024 12:08:31 05/14/19 25 05/14/2024 HCV ANTIB SILVER CASCA DE(PC R/GEN O) interpretati on: Commen t Not infec jesus manuel with HCV unles s early or acute infec tion is suspe cted (whic h may be delay ed in an immun ocomp romis ed indiv idual ), or other evide nce exist s to indic ate HCV infec tion. Not Available [facility] ([facility]) [address] [facility], [place], [address], 05/14/2024 12:08:31 05/14/19 25 05/14/2024 TESTO STERO NE testosterone 555 NG/dL 264-91 6 normal Adult male refer ence inter francine is based on a popul ation of healt hy nonob johnny males (BMI <30) betwe en 19 and 39 years old. Madhu gaspar et.al . JCEM 2017, 102;1 161-1 173. PMID: 92478 103. Not Available [facility] ([facility]) [address] [facility], [place], [address], 05/14/2024 12:08:31 05/14/19 25 05/14/2024 TSH TSH 2.460 uIU/m L 0.450- 4.500 normal Not Available [facility] ([facility]) [address] [facility], [place], [address], 05/14/2024 12:08:32 05/14/19 25 05/14/2024 VITAM IN [...] Endoc rine Socie ty went on to [facility] defin e vitam in D insuf ficie ncy as a level betwe en 21 and 29 ng/mL (2). 1. IOM (Inst itute of Medic ine). 2010. Dieta ry refer ence intak es for calci um and D. Diaz middleton [place]: The [facility] . 2. Daija trevizo MF, Maximus mcintosh [place], uAreliano off-F bebe i KOENIG, et al. Evalu ation , treat ment, and preve ntion of vitam in D defic iency : an Endoc rine Socie ty clini isaak pract ice guide line. JCEM. 2010; 96(7) :1911 -30. Not Available [facility] ([facility]) [address] [facility], [place], [address], 05/14/2024 12:08:33 05/14/1905/14/2024 HIV AB/P2 4 AG WITH REFLE X HIV Ab/P24 Ag screen Non Reacti ve non reacti ve HIV-1 /HIV- 2 antib odies and HIV-1 p24 antig en were NOT detec jesus manuel. There is no labor atory evide nce of HIV infec tion. HIV Negat anu Not Available [facility] ([facility]) [address] [facility], [place], [address], 05/14/2024 12:08:33 05/14/1905/14/2024 PROST ATE SPECI FIC [...] t be inter prete d as absol takotna evide nce of the prese nce or absen ce of boni menchaca disea se. Not Available [facility] ([facility]) [address] [facility], [place], [address], 05/14/2024 12:08:34 05/14/1905/14/2024 HEMOG LOBIN A1C hemoglobin A1C 7.5 % 4.8-5. 6 above high normal Predi abete s: 5.7 - 6.4 Diabe franko: >6.4 Glyce rylee contr ol for adult s with diabe franko: <7.0 Not Available [facility] ([facility]) [address] [facility], [place], [address], 05/14/2024 23:06:59 05/14/1905/14/2024 LINDSAY EN AUTHO RIZAT ION written authorizatio n Maninder t Lindsay en Autho rizat ion Recei sonia. Autho rizat ion recei sonia from [facility] for [facility] on 05-14 Logge d by Chema Almazan an Not Available [facility] ([facility]) [address] [facility], [place], [address], 05/14/2024 23:06:59 05/14/19 25 05/13/2024 micro album in/cr eatin ine, mass ratio , urine Microalbumin 10 mg/L Not Available [facility] [address] [facility], [place], [address], 05/13/2024 08:14:01 05/14/19 25 05/13/2024 micro album in/cr eatin ine, mass ratio , urine Creatinine 50 mg/dL Not Available [facility] [address] [place] [address], [place], [address], 05/13/2024 08:14:01 05/14/19 25 05/13/2024 micro album in/cr eatin ine, mass ratio , urine Ratio 30-300 mg/g Not Available [facility] [address] [place] [address], [address], 05/13/2024 08:14:01 01/15/20 25 01/14/2025 micro album in/cr eatin ine, mass ratio , urine Microalbumin 10 mg/L Not Available [facility] [address] [place] [address], [place], [address], 01/14/2025 16:51:35 01/15/20 25 01/14/2025 micro album in/cr eatin ine, mass ratio , urine Creatinine 100 mg/dL Not Available [facility] [address] [place] [address], [place], [address], 01/14/2025 16:51:35 01/15/20 25 01/14/2025 micro album in/cr eatin ine, mass ratio , urine Ratio <30 mg/g Not Available [address], [address], 01/14/2025 16:51:35 01/15/20 25 01/14/2025 HbA1c (hemo globi n A1c), blood HbA1c 7.1 % Not Available [address], [address], 01/14/2025 16:51:30 01/17/20 25 01/16/2025 urina lysis , dipst ick Leukocytes Negati ve Not Available [address], [place], [address], 01/16/2025 13:14:13 01/17/2001/16/2025 urina lysis , dipst ick Nitrite negati ve Not Available [address], [place], [address], 01/16/2025 13:14:13 01/17/2001/16/2025 urina lysis , dipst ick Urobilinogen .2 Not Available [address], [place], [address], 01/16/2025 13:14:13 01/17/2001/16/2025 urina lysis , dipst ick Protein Negati ve Not Available [address], [place], [address], 01/16/2025 13:14:13 01/17/2001/16/2025 urina lysis , dipst ick pH 6.5 Not Available [address], [place], [address], 01/16/2025 13:14:13 01/17/2001/16/2025 urina lysis , dipst ick Blood Negati ve Not Available [address], [place], [address], 01/16/2025 13:14:13 01/17/2001/16/2025 urina lysis , dipst ick Specific [place] 1.015 Not Available [address], [place], [address], 01/16/2025 13:14:13 01/17/2001/16/2025 urina lysis , dipst ick Ketone Negati ve Not Available [address], [address], 01/16/2025 13:14:13 01/17/2001/16/2025 urina lysis , dipst ick Bilirubin Negati ve Not Available [address], [address], 01/16/2025 13:14:13 01/17/2001/16/2025 urina lysis , dipst ick Glucose 500 Not Available [address], [address], 01/16/2025 13:14:13 01/17/2001/16/2025 urina lysis , dipst ick Appearance Clear Not Available [address], [address], 01/16/2025 13:14:13 01/17/2001/16/2025 urina lysis , dipst ick Color Yellow Not Available [address], [address], 01/16/2025 13:14:13 01/17/2001/16/2025 XR, lumba r spine No observ ation record ed. [facility] [address], [place], [address], 01/17/2025 09:28:48 Result Notes None recorded. Problems Name Problem SNOMED Code Status Onset Date Resolution Date Notes Provider Name and Address Organization Details Recorded Time Hyperlipidemia 49109932 Active 2024 PERFECTO Bland [address] [place] [address], [address], [facility] [employer] 17:40:34 Essential hypertension 39351188 Active 2024 PERFECTO Bland [address] [place] [address], [address], [employer] 17:40:24 Gastroesophage al reflux disease without esophagitis 670111753 Active 2024 PERFECTO Bland [address] [place] [address], [address], [employer] 17:40:27 Chronic sinusitis 39776237 Active 2024 PERFECTO Bland [address] [place] [address], [address], [employer] 17:40:36 Chronic kidney disease 651469551 Active 2024 PERFECTO Bland [address] [place] [address], [address] 8, [employer] 17:40:20 Urine microalbumin detected 904370495 Active 2024 PERFECTO Bland [address] [place] [address], [address], [employer] 17:40:30 Vitamin D deficiency 34911550 Active 2024 PERFECTO Bland [address] [place] [address], [address] 8, [employer] 17:42:07 Type 2 diabetes mellitus without complication 414440843 Active 2024 PERFECTO Bland [address] [place] [address], [address], [employer] 09:13:35 Spasm of back muscles 344808618 Active 2024 PERFECTO Bland [address] [place] [address], [address] 8, [employer] 17:07:45 Low back pain 451287104 Active 2024 PERFECTO Bland [address] [place] [address], [address] 8, [employer] 13:30:37 Anxiety 13674549 Active 2024 PERFECTO Bland [address] [place] [address], [address] 8, [employer] 14:42:58 Acute low back pain 836946536 Active 2024 PERFECTO Bland [address] [place] [address], [address] 8, [employer] 13:39:22 Problem Notes None recorded. Procedures Surgical History Date Name Laterality Status Provider Name and Address Organization Details Recorded Time Diabetic Foot Screen completed PERFECTO Bland [address] [place] [address], [address], [employer] 05/13/2024 14:20:35 Hip Replacement completed [employer] 03/15/2024 15:11:13 Stent completed [employer] 03/15/2024 15:11:20 Imaging Results None recorded. Procedure Notes None recorded. Medical Equipment None Reported. Allergies Allergen ID Allergen Name Allergen Category Reaction Reaction Severity Criticality Documentation Date Start Date Code Code System Note Provider Name and Address Organization Details Recorded Time 77740 acetamino phen / oxycodone medicatio n Not available Not available Not available 03/15/2024 53738 3 RxNorm Elisa [employer], [employer] 15:07:41 08210 metformin medicatio n Not available Not available Not available 05/16/2024 6809 RxNorm Elisa [employer], [employer] 09:05:31 Medications Name Sig Start Date [...] Not Available Not Available No t Available alprazolam 1 mg tablet TAKE 1 [...] completed Not Available Not Available Not Available Halcion 0.25 mg tablet Take 1 tablet every day by oral route for 1 day. 2024 active Not Available Not Available Not Avai lable azelastine 137 mcg (0.1 %) nasal spray [...] Address Organization Details Last Updated DateTime 5 73074.7 2 g 30.2 kg/m2 175.26 cm 63 /min 96 % 96 % 152/80 mm[Hg] 152/80 mm[Hg] 150/80 mm[Hg] [facility] [employer] 15:23:54 Date Recorded Body height Body mass index (BMI) Body weight Oxygen saturation Oxygen saturation in Arterial blood by Pulse oximetry Heart rate Systolic And Diastolic Systolic And Diastolic Systolic And Diastolic Provider Name and Address Organization Details Last Updated DateTime 5 175.26 cm 30.6 kg/m2 06577.0 6 g 95 % 95 % 66 /min 166/80 mm[Hg] 170/74 mm[Hg] 168/78 mm[Hg] [employer] 5 14:26:53 Date Recorded Body height Body mass index (BMI) Body weight Heart rate Oxygen saturation Oxygen saturation in Arterial blood by Pulse oximetry Body temperature Systolic And Diastolic Systolic And Diastolic Provider Name and Address Organization Details Last Updated DateTime 5 175.26 cm 29.5 kg/m2 31838.0 4 g 76 /min 94 % 94 % 98.1 [degF] 170/68 mm[Hg] 164/70 mm[Hg] [employer] 5 17:21:53 Date Recorded Body height Body mass index (BMI) Body weight Oxygen saturation Oxygen saturation in Arterial blood by Pulse oximetry Heart rate Body temperature Systolic And Diastolic Systolic And Diastolic Provider Name and Address Organization Details Last Updated DateTime 5 175.26 cm 29.3 kg/m2 07457.4 4 g 96 % 96 % 64 /min 98.4 [degF] 162/80 mm[Hg] 160/80 mm[Hg] [employer] 5 16:51:05 Date Recorded Body height Body mass index (BMI) Body weight Heart rate Oxygen saturation Oxygen saturation in Arterial blood by Pulse oximetry Body temperature Systolic And Diastolic Systolic And Diastolic Provider Name and Address Organization Details Last Updated DateTime 5 175.26 cm 29.5 kg/m2 23876.4 7 g 70 /min 96 % 96 % 98.1 [degF] 148/70 mm[Hg] 146/72 mm[Hg] [employer] 5 13:09:53 Social History Question Answer Notes LastModified by Organizat ion Details LastModified Time Tobacco Smoking Status Current Every Day Smoker [employer] 03/15/2024 14:58:20 Do You Have An [...] Information not available 01/03/2025 What Type Of Laborer Gold Leaf Do You Use? None Information not available [...] Or The Highest Degree You Have Received? VC25530-5 Information not available 01/03/2025 Have There Been [...] Do You Have A Medical Power Of Profile Grinder Technician? No Information not available 03/15/2024 What Was [...] Status Question Answer Note LastModified by Organizat [employer] Details LastModified Time Do you use any [...] Mental Status Question Answer Note LastModified by [employer] Details LastModified Time Do you feel stressed (tense, restless, nervous, or anxious, or unable to sleep at night)? [id number] Information not available 03/15/2024 Do you have [...] COPD N Depression N Dermatologic Disorders N Hypothyroidism N Lung Disease N Developmental or Behavioral Disorders N Defects [...] mL, PF 01/03/2025 completed Elisa Vice null, [employer] 01/03/2025 17:24:12 Tdap 03/14/2018 completed Elisa Vice null, [employer] 03/15/2024 15:02:20 Hep A, adult 03/14/2018 completed Elisa Vice null, [employer] 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 - may need CT sinuses; may benefit from Dupixent Body mass index 30+ - obesity 940052393 Z68.30 [id number] PERFECTO Bland [address] [address] 05/13/2024 07:56:07 05/13/2024 08:55:17 Type 2 diabetes mellitus without complication 489975998 E11.9 Chronic ki dney disease 087094395 N18.9 Hyperlipidemia 15599396 E78.5 Screening for malignant neoplasm of prostate 796507105 Z12.5 HIV screening 361719489 Z11.4 Hepatitis C screening 41 1891381 Z11.59 Fatigue 16836228 R53.83 Urine micr oalbumin detected 215677828 R80.9 [id number] PERFECTO Bland [address] [address] 01/03/2025 16:41:41 01/03/2025 17:09:01 Requires respiratory syncytial virus vaccination 693625527 Z29.11 342063 [id number] PERFECTO Bland [address] [address] 01/14/2025 16:21:00 01/14/2025 17:07:42 Type 2 diabetes mellitus 33332002 E11.9 58393111 Chronic sinusitis 660026 00 J32.9 Spasm of back muscles 20 0607534 M62.830 394959 Salonpas patches samples given to patientInc rease fluidsRTC if not improving [id number] PERFECTO Bland [address] [address] 01/16/2025 12:24:58 01/16/2025 13:28:24 Acute low back pain 451457957 M54.50 [id number] May need MRI if pain persists - unclear etiology Goals Section Goal Description Progress Status Start Date LastModified by Organization Details LastModified Time Medication Regimen Follows medication regimen as per care team recommendati on(s) None active 2024 Larisa Cortez Information not available 05/21/2024 15:12:38 Blood Glucose Maintains blood glucose within target range None active 2024 Larisa Diego Information not available 05/21/2024 14:50:33 Diet Adherence Follows prescribed or recommended diet None active 2024 Larisa Cortez Information not available 05/21/2024 14:50:33 Follow-up Appointment( s) Attends referral and/or follow-up appointment( s) as per care team recommendati on(s) None active 2024 Larisa Diego Information not available 05/21/2024 14:50:33 Blood Pressure Maintains blood pressure goal as defined by care team None active 2024 Larisashanel Cortez Information not available 05/21/2024 14:50:34 Health [...] Muro Member ID Guarantor Name 01/11/2025 2 MEDICAID-[facility] CHOICES - FFS/TRADITION AL Tyler Sandra [id number] Tyler Sandra 01/11/2025 [place] [facility] [place] Sandra Jr [id number] Tyler Sandra 03/19/2024 [place] [employer] [facility] ANAM Sandra [id number] Tyler Sandra 01/11/2025 [facility] [facility] (MEDICARE) [place] Sandra [id number] Tyler Sandra 01/21/2025 1 [facility] (MEDICARE REPLACEMENT/A DVANTAGE - PPO) [place] Tyler Sandra [id number] Tyler Mcclureump 03/15/2024 1 *SELF PAY* stacey Turpin Jocy Notes Date Note Type Note [...] never had CT of sinuses. PERFECTO Bland [address] [place] [address], [phone], [employer], [employer]. 03/19/2024 13:16:32 05/13/2024 text/html ROS as noted in the HPI Patient presents for followup.History of diabetes. States he is doing ok with his medication.Would like to have testosterone checked. PERFECTO Bland [address] [place] [address], [phone], [employer] 05/13/2024 14:22:01 01/03/2025 text/html Patient presents for RSV vaccine PERFECTO Bland [address] [place], [address], [employer] 01/03/2025 17:14:34 01/14/2025 text/html ROS as noted in the HPI Patient began having right lower back pain 4-5 days ago. Seen at [facility] yesterday. Given steroid shot and Toradol. He hasn't had much relief.History of DM. DOing well.Needs refills on Xyzal. PERFECTO Bland [address] [place], [address], [employer], [employer]. 01/14/2025 17:38:58 01/16/2025 text/html ROS as noted in the HPI Patient still having pain in right mid back. Meds helped a little but not a lot. Has burning pain but no rash. Cannot get comfortable. No specific injury. No hematuria or dysuria. PERFECTO Bland [address] [place], [address], [facility] [employer] 01/20/2025 13:40:24
--- OUTSIDE RECORDS SUMMARY | 2025-01-22 14:28 | XMS_ITS | Continuity of Care Document ---
Author Organization [facility] Address [address] [place] [address] Care Team Providers Care Money Counter Name Role Phone SHOSHANA SANDHU Primary Care Provider STORM Case Dehydrogenation Operator Head Assessment No assessment recorded. Plan of Treatment Reminders Order Date Submit Date Provider Last Modified By Organization Details Last Modified Time Details Appointments None recorded. Lab HbA1c (hemoglobin A1c), blood [address], [address] [place], [address], 17:08:11 microalbumi n/creatinin e, mass ratio, urine [address], [address] [place], [address], 17:08:11 Referral None recorded. Procedures None recorded. Surgeries None recorded. Imaging None recorded. Medication Orders cyclobenzap rine 10 mg tablet 2024 025 [facility], [address], [address], 5 17:11:00 meloxicam 15 mg tablet 2024 025 [facility], [address] [place], [address], 5 17:10:59 Xyzal 5 mg tablet 2024 025 [facility] [address] [facility], [address], [place], [place], [id number], 17:08:10 Patient TargetsNo targets recorded. Patient Instructions Encounter Date Encounter Id Patient Instructions Last Modified By Organization Details Last Modified Time 01/14/2025 [id number] learning about type 2 diabetes [id number] Not available 01/14/2025 17:08:10 type 2 diabetes: care instructions [email or web address] Not available 01/14/2025 17:08:10 Reason for Referral None Reported. Results Created Date Observation Date Name Description Value Unit Range Abnormal Flag Note LastModifiedBy Organization Detail LastModifiedTime 01/15/2001/14/2025 micro album in/cr eatin ine, mass ratio , urine Microalbumin 10 mg/L Not Available [address], [address], 01/14/2025 16:51:35 01/15/20 25 01/14/2025 micro album in/cr eatin ine, mass ratio , urine Creatinine 100 mg/dL Not Available [facility] [address] [place] [address], [address], 01/14/2025 16:51:35 01/15/20 25 01/14/2025 micro album in/cr eatin ine, mass ratio , urine Ratio <30 mg/g Not Available [address], [address], 01/14/2025 16:51:35 01/15/20 25 01/14/2025 HbA1c (hemo globi n A1c), blood HbA1c 7.1 % Not Available [facility] [address] [place] [address], [address], 01/14/2025 16:51:30 01/17/20 25 01/16/2025 XR, lumba r spine No observ ation record ed. [facility] [address], [place], [address], 01/17/2025 09:28:48 Result Notes None recorded. Problems Name Problem SNOMED Code Status Onset Date Resolution Date Notes Provider Name and Address Organization Details Recorded Time Hyperlipidemia 01539341 Active 2024 PER[address]ECT[address] lBand [address] [place] [address], [address], [employer] 17:40:34 Essential hypertension 22670754 Active 2024 PERFECTO Bland [address] [place] [address], [address], [employer] 17:40:24 Gastroesophage al reflux disease without esophagitis 527488622 Active 2024 PERFECTO Bland [address] [place] [address], [address], [employer] 17:40:27 Chronic sinusitis 67382793 Active 2024 PERFECTO Bland [address] [place] [address], [address], [employer] 17:40:36 Chronic kidney disease 711215848 Active 2024 PERFECTO Bland [address] [place] [address], [address], [employer] 17:40:20 Urine microalbumin detected 285531994 Active 2024 PERFECTO Bland [address] [place] [address], [address], [employer] 17:40:30 Vitamin D deficiency 15153437 Active 2024 PERFECTO Bland [address] [place] [address], [address], [employer] 17:42:07 Type 2 diabetes mellitus without complication 557515329 Active 2024 Shoshana Sandhu PERFECTO [address] [place] [address], [address], [employer] 09:13:35 Spasm of back muscles 999725598 Active 2024 PERFECTO Bland [address] [place] [address], [address], [employer] 17:07:45 Low back pain 486829548 Active 2024 [address]ECTO [address] [place] [address], [address], [employer] 13:30:37 Anxiety 83224129 Active 2024 Shoshana Sandhu PERFECTO [address] [place] [address], [address], [employer] 14:42:58 Acute low back pain 174895396 Active 2024 [address]ECTO [address] [place] [address], [address], [employer] 13:39:22 Problem Notes None recorded. Procedures Surgical History Date Name Laterality Status Provider Name and Address Organization Details Recorded Time Diabetic Foot Screen completed Shoshana Sandhu PERFECTO [address] [place] [address], [address], [employer] 05/13/2024 14:20:35 Hip Replacement completed [employer] 03/15/2024 15:11:13 Stent completed [employer] 03/15/2024 15:11:20 Imaging Results None recorded. Procedure Notes None recorded. Medical Equipment None Reported. Allergies Allergen ID Allergen Name Allergen Category Reaction Reaction Severity Criticality Documentation Date Start Date Code Code System Note Provider Name and Address Organization Details Recorded Time 21824 acetamino phen / oxycodone medicatio n Not available Not available Not available 03/15/2024 66404 3 RxNorm Elisa Vice [facility], [employer] 15:07:41 85897 metformin medicatio n Not available Not available Not available 05/16/2024 6809 RxNorm Elisa Vice justin [facility] [employer], [facility] 09:05:31 Medications Name Sig Start Date Stop [...] Last Updated DateTime 175.26 cm 29.3 kg/m2 18942.4 4 g 96 % 96 % 64 /min 98.4 [degF] 162/80 mm[Hg] 160/80 mm[Hg] Elisa [email or web address] 16:51:05 Social History Question Answer Notes LastModified by Organizat ion Details LastModified Time Tobacco Smoking Status Current Every Day Smoker [employer] 03/15/2024 14:58:20 Do You Have An Advance [...] Information not available 01/03/2025 What Type Of Technical Operations Manager Do You Use? None Information not available [...] Or The Highest Degree You Have Received? [id number] Information not available 01/03/2025 Have There Been [...] Do You Have A Medical Power Of Electrical Maintenance Supervisor? No Information not available 03/15/2024 What Was [...] Functional Status Question Answer Note LastModified by [employer] ion Details LastModified Time Do you use [...] Mental Status Question Answer Note LastModified by [employer] ion Details LastModified Time Do you feel stressed (tense, restless, nervous, or anxious, or unable to sleep at night)? [id number] Information not available 03/15/2024 Do you have [...] Artery Disease N Other N Gout N Blood Diseases N Kidney Stones N Hyperthyroidism N Blood Transfusion N Breast Cancer N Emergency room visit since last appointm ent. N Lung Disease N COPD N Depression N Dermatologic Disorders N Hypothyroidism N Defects or Inherited Disease N Developmental [...] Psychiatric/Mental Health Condition N Organ Transplant N Dialysis N Schizophrenia N Fibromyalgia N Headaches N Kidney Disease N Allergies/Hayfever Y Heart Problems N Ear or Hearing Problems N Hospitalizations N Learning Disorder N Artificial Joints N Thyroid Problems N GI Problems N Acne N ADD/ADHD N Eating Disorder N Anemia N Constipation N Mental Illness N Diabetes Y Ovarian Cancer N Bedwetting N Hepatitis/Liver Disease N Tuberculosis N Eczema N Abuse/Domestic Violence N Diverticulitis N Asthma N Trauma/Violence N Substance Abuse [...] mL, PF 01/03/2025 completed Elisa Vice null, [employer] 01/03/2025 17:24:12 Tdap 03/14/2018 completed Elisa Vice null, [employer] 03/15/2024 15:02:20 Hep A, adult 03/14/2018 completed Elisa Vice null, [employer] 03/15/2024 15:02:20 Past Encounters Encounter ID Performer Location Encounter Start Date Encounter Closed Date Diagnosis/Indication Diagnosis SNOMED-CT Code Diagnosis ICD10 Code Diagnosis IMO Codes Diagnosis Note [id number] PERFECTO Bland [facility] [address] [place] [address] 01/03/2025 16:41:41 01/03/2025 17:09:01 Requires respiratory syncytial virus vaccination 118894407 Z29.11 146884 [id number] PERFECTO Bland [facility] [address] [place] [address] 01/14/2025 16:21:00 01/14/2025 17:07:42 Type 2 diabetes mellitus 56406378 E11.9 91861277 Chronic sinusitis 792939 00 J32.9 Spasm of back muscles 20 8249393 M62.830 [id number] Salonpas patches samples given to patientInc rease [...] Muro Member ID Guarantor Name 01/14/2025 2 MEDICAID-[facility] CHOICES - FFS/TRADITION AL Tyler Sandra [id number] Tyler Sandra 01/14/2025 1 [facility] (MEDICARE REPLACEMENT/A DVANTAGE - PPO) [employer] Sandra [id number] Tyler Sandra Notes Date Note Type Note Provider Name and Address Organization Details Recorded Time 01/14/2025 text/html ROS as noted in the HPI Patient began having right lower back pain 4-5 days ago. Seen at [facility] yesterday. Given steroid shot and Toradol. He hasn't had much relief.History of DM. DOing well.Needs refills on Xyzal. PERFECTO Bland [address] [place] [address], [address], [facility] [employer] 01/14/2025 17:38:58
--- OUTSIDE RECORDS SUMMARY | 2025-01-22 14:28 | XMS_ITS | Continuity of Care Document ---
Author Organization [employer] Address [address] [place] [address] Care Team Providers Care Learning Support Resource Room Teacher Name Role Phone SHOSHANA SANDHU Primary Care Provider STORM Case Human Resources Hr Representative Assessment No assessment recorded. Plan of Treatment Reminders Order Date Submit Date Provider Last Modified By Organization Details Last Modified Time Details Appointments None record ed. Lab None record ed. Referral None record ed. Procedures None record ed. Surgeries None record ed. Imaging None record ed. Medication Orders None record ed. Patient TargetsNo targets recorded. Patient InstructionsNo instructions recorded. Reason for Referral None Reported. Results Created Date Observation Date Name Description Value Unit Range Abnormal Flag Note LastModifiedBy Organization Detail LastModifiedTime 01/17/2001/16/2025 XR, lumba r spine No observ ation record ed. [facility] [address], [place], [address], 01/17/2025 09:28:48 Result Notes None recorded. Problems Name Problem SNOMED Code Status Onset Date Resolution Date Notes Provider Name and Address Organization Details Recorded Time Hyperlipidemia 71287263 Active 2024 PERFECTO Bland [address] [place] [address], [address] 8, [employer] 17:40:34 Essential hypertension 17453287 Active 2024 PERFECTO Bland [address] [place] [address], 12783[address]630 8, [employer] 17:40:24 Gastroesophage al reflux disease without esophagitis 816826523 Active 2024 PERFECTO Bland [address] [place] [address], [address]694 8, [employer] 17:40:27 Chronic sinusitis 02827861 Active 2024 PERFECTO Bland [address] [place] [address], [address] 8, [place] [employer] 17:40:36 Chronic kidney disease 540160210 Active 2024 [place] PERFECTO Sandhu [address] [place] [address], 90464-655 8, [employer] 17:40:20 Urine microalbumin detected 991515505 Active 2024 [place] PERFECTO Sandhu [address] [place] [address], 09976-949 8, [employer] 17:40:30 Vitamin D deficiency 77147885 Active 2024 PERFECTO Bland [address] [place] [address], 29292-331 8, [employer] 17:42:07 Type 2 diabetes mellitus without complication 986705678 Active 2024 PERFECTO Bland [address] [place] [address], 18271-300 8, [employer] 09:13:35 Spasm of back muscles 477901329 Active 2024 PERFECTO Bland [address] [place] [address], 98232-401 8, [employer] 17:07:45 Low back pain 870893598 Active 2024 PERFECTO Bland [address] [place] [address], 54916[address]757 8, [employer] 13:30:37 Anxiety 21663747 Active 2024 PERFECTO Bland [address] [place] [address], 42502[address]235 8, [employer] 14:42:58 Acute low back pain 374809566 Active 2024 PERFECTO Bland [address] [place] [address], 98069-771 8, [employer] 13:39:22 Problem Notes None recorded. Procedures Surgical History Date Name Laterality Status Provider Name and Address Organization Details Recorded Time Diabetic Foot Screen completed PERFECTO Bland [address] [place] [address], [address], [employer] 05/13/2024 14:20:35 Hip Replacement completed [employer] 03/15/2024 15:11:13 Stent completed [email or web address] 03/15/2024 15:11:20 Imaging Results None recorded. Procedure Notes None recorded. Medical Equipment None Reported. Allergies Allergen ID Allergen Name Allergen Category Reaction Reaction Severity Criticality Documentation Date Start Date Code Code System Note Provider Name and Address Organization Details Recorded Time 18074 acetamino phen / oxycodone medicatio n Not available Not available Not available 03/15/2024 98448 3 RxNorm Elisa [employer], [employer] 15:07:41 24711 metformin medicatio n Not available Not available Not available 05/16/2024 6809 RxNorm [employer], [employer] 09:05:31 Medications Name Sig Start Date [...] Last Updated DateTime 175.26 cm 29.5 kg/m2 28408.0 4 g 76 /min 94 % 94 % 98.1 [degF] 170/68 mm[Hg] 164/70 mm[Hg] Elisa Pascal [employer], [employer]. 17:21:53 Social History Question Answer Notes LastModified by Organizat ion Details LastModified Time Tobacco Smoking Status Current Every Day Smoker Elisa justin [employer]. 03/15/2024 14:58:20 Do You Have An Advance [...] Information not available 01/03/2025 What Type Of Tele Tech Do You Use? None Information not available [...] Or The Highest Degree You Have Received? [id number] Information not available 01/03/2025 Have There Been [...] Do You Have A Medical Power Of Reservations Specialist? No Information not available 03/15/2024 What Was [...] available 03/15/2024 Do You Participate In Social [employer]? No Information not available 03/15/2024 What Types [...] Mental Status Question Answer Note LastModified by [place] Details LastModified Time Do you feel stressed (tense, restless, nervous, or anxious, or unable to sleep at night)? [id number] Information not available 03/15/2024 Do you have [...] mL, PF 01/03/2025 completed Elisa Vice null, [employer] 01/03/2025 17:24:12 Tdap 03/14/2018 completed Elisa Vice Isai, [employer] 03/15/2024 15:02:20 Hep A, adult 03/14/2018 completed [employer] null, [employer] 03/15/2024 15:02:20 Past Encounters Encounter ID Performer Location Encounter Start Date Encounter Closed Date Diagnosis/Indication Diagnosis SNOMED-CT Code Diagnosis ICD10 Code Diagnosis IMO Codes Diagnosis Note [id number] PERFECTO Bland [facility] [address] [place] [address] 01/03/2025 16:41:41 01/03/2025 17:09:01 Requires respiratory syncytial virus vaccination 167426513 Z29.11 312552 Goals Section Goal Description Progress Status Start [...] or recommended diet None active 2024 Storm Diego Information not available 05/21/2024 14:50:33 Follow-up Appointment( s) Attends referral and/or follow-up appointment( s) as per care team recommendati on(s) None active 2024 Storm Cortez Information not available 05/21/2024 14:50:33 Blood Pressure Maintains blood pressure goal as defined by care team None active 2024 Storm Crotez Information not available 05/21/2024 14:50:34 Health Concerns [...] HEALTH CHOICES - FFS/TRADITION AL Tyler Sandra [id number] Tyler Sandra 01/03/2025 1 [facility] (MEDICARE REPLACEMENT/A DVANTAGE - PPO) [id number] Tyler Sandra [id number] Tyler Sandra Notes Date Note Type Note Provider Name and Address Organization Details Recorded Time 01/03/2025 text/html Patient presents for RSV vaccine PERFECTO Bland [address] [place] [address], [address], [facility] [employer] Jared [employer] 01/03/2025 17:14:34
--- OUTSIDE RECORDS SUMMARY | 2025-01-22 14:28 | XMS_ITS | Continuity of Care Document ---
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 Plan of Treatment Reminders Order Date Submit Date Provider Last Modified By Organization Details Last Modified Time Details Appointments None recorded. Lab urinalysis, dipstick [email or web address] [place] [address], [address] [facility], [place], [address], 14:45:50 Referral None recorded. Procedures None recorded. Surgeries None recorded. Imaging XR, lumbar spine 2024 [facility] (X-Ray), [address] [place] [address] [address] [place], [address], 19:40:16 Medication Orders Lyrica 75 mg capsule 2024 025 [facility] [place], [address], 13:32:36 prednisone 20 mg tablet 2024 025 [facility] [place], [address], 13:32:30 Patient TargetsNo targets recorded. Patient InstructionsNo instructions recorded. Reason for Referral None Reported. Results Created Date Observation Date Name Description Value Unit Range Abnormal Flag Note LastModifiedBy Organization Detail LastModifiedTime 01/15/2001/14/2025 micro album in/cr eatin ine, mass ratio , urine Microalbumin 10 mg/L Not Available [address], [place], [address], 01/14/2025 16:51:35 01/15/20 25 01/14/2025 micro album in/cr eatin ine, mass ratio , urine Creatinine 100 mg/dL Not Available [address], [address], 01/14/2025 16:51:35 01/15/20 25 01/14/2025 micro album in/cr eatin ine, mass ratio , urine Ratio <30 mg/g Not Available [address], [address], 01/14/2025 16:51:35 01/15/20 25 01/14/2025 HbA1c (hemo globi n A1c), blood HbA1c 7.1 % Not Available [address], [address], 01/14/2025 16:51:30 01/17/20 25 01/16/2025 urina lysis , dipst ick Leukocytes Negati ve Not Available [address], [address], 01/16/2025 13:14:13 01/17/20 25 01/16/2025 urina lysis , dipst ick Nitrite negati ve Not Available [address], [address], 01/16/2025 13:14:13 01/17/20 25 01/16/2025 urina lysis , dipst ick Urobilinogen .2 Not Available [address], [place], [address], 01/16/2025 13:14:13 01/17/2001/16/2025 urina lysis , dipst ick Protein Negati ve Not Available [address], [place], [address], 01/16/2025 13:14:13 01/17/2001/16/2025 urina lysis , dipst ick pH 6.5 Not Available [address], [place], [address], 01/16/2025 13:14:13 01/17/2001/16/2025 urina lysis , dipst ick Blood Negati ve Not Available [address], [place], [address], 01/16/2025 13:14:13 01/17/2001/16/2025 urina lysis , dipst ick Specific [place] 1.015 Not Available [address], [place], [address], 01/16/2025 13:14:13 01/17/2001/16/2025 urina lysis , dipst ick Ketone Negati ve Not Available [address], [place], [address], 01/16/2025 13:14:13 01/17/2001/16/2025 urina lysis , dipst ick Bilirubin Negati ve Not Available [address], [address], 01/16/2025 13:14:13 01/17/20 25 01/16/2025 urina lysis , dipst ick Glucose 500 Not Available [address], [address], 01/16/2025 13:14:13 01/17/20 25 01/16/2025 urina lysis , dipst ick Appearance Clear Not Available [facility] [address] [place] [address], [address], 01/16/2025 13:14:13 01/17/2001/16/2025 urina lysis , dipst ick Color Yellow Not Available [address], [address], 01/16/2025 13:14:13 01/17/2001/16/2025 XR, lumba r spine No observ ation record ed. [facility] [address], [place], [address], 01/17/2025 09:28:48 Result Notes None recorded. Problems Name Problem SNOMED Code Status Onset Date Resolution Date Notes Provider Name and Address Organization Details Recorded Time Hyperlipidemia 84707360 Active 2024 PERFECTO Bland [address] [place] [address], [address], [employer] 17:40:34 Essential hypertension 41727581 Active 2024 PERFECTO Bland [address] [place] [address], [address] 8, [place] [employer] 17:40:24 Gastroesophage al reflux disease without esophagitis 545158847 Active 2024 PERFECTO Bland [address] [place] [address], [address] 8, [employer] 17:40:27 Chronic sinusitis 55309259 Active 2024 PERFECTO Bland [address] [place] [address], 87571-250 8, [employer] 17:40:36 Chronic kidney disease 481427607 Active 2024 PERFECTO Bland [address] [place] [address], 63[address] 8, [place] [employer] 17:40:20 Urine microalbumin detected 290358222 Active 2024 PERFECTO Bland [address] [place] [address], 127[address] 8, [employer] 17:40:30 Vitamin D deficiency 71139277 Active 2024 PERFECTO Bland [address] [place] [address], [address]07[address] 8, [employer] 17:42:07 Type 2 diabetes mellitus without complication 681042196 Active 2024 PERFECTO Bland [address] [place] [address], 98[address]263 8, [employer] 09:13:35 Spasm of back muscles 107280904 Active 2024 PERFECTO Bland [address] [place] [address], 04[address]181 8, [employer] 17:07:45 Low back pain 398165257 Active 2024 PERFECTO Bland [address] [place] [address], 22521[address]910 8, [employer] 13:30:37 Anxiety 05453380 Active 2024 PERFECTO Bland [address] [place] [address], 81306-223 8, [employer] 14:42:58 Acute low back pain 353928894 Active 2024 PERFECTO Bland [address] [place] [address], 680[address]947 8, [employer] 13:39:22 Problem Notes None recorded. Procedures Surgical History Date Name Laterality Status Provider Name and Address Organization Details Recorded Time Diabetic Foot Screen completed PERFECTO Bland [address] [place] [address], [address], [employer] 05/13/2024 14:20:35 Hip Replacement completed [employer] 03/15/2024 15:11:13 Stent completed [facility] [employer] [facility] [employer] 03/15/2024 15:11:20 Imaging Results None recorded. Procedure Notes None recorded. Medical Equipment None Reported. Allergies Allergen ID Allergen Name Allergen Category Reaction Reaction Severity Criticality Documentation Date Start Date Code Code System Note Provider Name and Address Organization Details Recorded Time 52781 acetamino phen / oxycodone medicatio n Not available Not available Not available 03/15/2024 18650 3 RxNorm Elisa [employer], [employer] 5 15:07:41 59936 metformin medicatio n Not available Not available Not available 05/16/2024 6809 RxNorm Elisa [employer], [employer] 5 09:05:31 Medications Name Sig Start [...] Last Updated DateTime 175.26 cm 29.5 kg/m2 91952.4 7 g 70 /min 96 % 96 % 98.1 [degF] 148/70 mm[Hg] 146/72 mm[Hg] Elisa Pascal [employer] 13:09:53 Social History Question Answer Notes LastModified by Organizat ion Details LastModified Time Tobacco Smoking Status Current Every Day Smoker Elisa Pascal [facility] [employer] 03/15/2024 14:58:20 Do You Have An Advance [...] Information not available 01/03/2025 What Type Of Tax Consultant Do You Use? None Information not available [...] Or The Highest Degree You Have Received? TA09517-5 Information not available 01/03/2025 Have There Been [...] Do You Have A Medical Power Of Mechanical Estimator? No Information not available 03/15/2024 What Was [...] anxious, or unable to sleep at night)? [id number] Information not available 03/15/2024 Do you have [...] mL, PF 01/03/2025 completed Elisa Vice null, [employer]. 01/03/2025 17:24:12 Tdap 03/14/2018 completed Elisa Vice null, [employer] 03/15/2024 15:02:20 Hep A, adult 03/14/2018 completed Elisa Vice null, [employer] 03/15/2024 15:02:20 Past Encounters Encounter ID Performer Location Encounter Start Date Encounter Closed Date Diagnosis/Indication Diagnosis SNOMED-CT Code Diagnosis ICD10 Code Diagnosis IMO Codes Diagnosis Note [id number] PERFECTO Bland [facility] [address] [place] [address] 01/03/2025 16:41:41 01/03/2025 17:09:01 Requires respiratory syncytial virus vaccination 730672696 Z29.11 468219 [id number] PERFECTO Bland [facility] [address] [place] [address] 01/14/2025 16:21:00 01/14/2025 17:07:42 Type 2 diabetes mellitus 40387668 E11.9 82396014 Chronic sinusitis 191755 00 J32.9 Spasm of back muscles 20 4859754 M62.830 184304 Sal[employer] patches samples given to patientInc rease fluidsRTC if not improving [id number] PERFECTO Bland [facility] [address] [place] [address] 01/16/2025 12:24:58 01/16/2025 13:28:24 Acute low back pain 352524732 M54.50 [id number] May need MRI if pain persists - [...] Member ID Muro Member ID Guarantor Name 01/16/2025 2 MEDICAID-[facility] CHOICES - FFS/TRADITION AL Tyler Sandra [id number] Tyler Sandra 01/16/2025 1 [facility] (MEDICARE REPLACEMENT/A DVANTAGE - PPO) ANAM Sandra [id number] [id number] Tyler Sandra Notes Date Note Type Note Provider Name and Address Organization Details Recorded Time 01/16/2025 text/html ROS as noted in the HPI Patient still having pain in right mid back. Meds helped a little but not a lot. Has burning pain but no rash. Cannot get comfortable. No specific injury. No hematuria or dysuria. PERFECTO Bland [address] [place] [address], [place], [address], [facility] [employer] 01/20/2025 13:40:24
== END 2025-01-22 23:59 | disposition home or self-care (01) ==
LOC: RAD 14:19
PROVIDERS: PCP Physician Assistant; Visit Provider Physician Assistant
DX: M47.26 Other spondylosis with radiculopathy, lumbar region (principal); M48.061 Spinal stenosis, lumbar region without neurogenic claudication; E88.2 Lipomatosis, not elsewhere classified
CPT/HCPCS: 72148